=== PATIENT | female | born 1960 | race Caucasian/White ===

== ENCOUNTER 2023-04-11 12:39 | Outpatient (OUT) | payer MEDICARE, SELFPAY ==
--- NOTE | 2023-04-11 13:18 | MM_ITS ---
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 MG MAMM SCREEN 3D ISSA CAD, 02/10/2021. MG MAMM ISSA DIAG W CAD, 07/24/2019. MG MAMM ISSA SCRN W CAD DIG, 01/20/2016. INDICATIONS: Screening mammogram Z12.31 Calculator Name NCI Breast Cancer Risk Assessment Tool 5 Year Breast Cancer Risk 1.90% Lifetime Breast Cancer Risk 8.40% Personal Breast Cancer No Personal Ovarian Cancer No Treatments None Family Cancers Cousin-maternal with breast cancer at age 50. LOCATION: [facility] BREAST COMPOSITION: Heterogeneously dense,which may obscure small masses. FINDINGS: DIAGNOSTIC CATEGORY 2--BENIGN FINDING: RIGHT BREAST: No significant suspicious finding. Scattered benign-appearing calcifications are present. No significant change has occurred. LEFT BREAST: No significant suspicious finding. Scattered benign-appearing calcifications are present. No significant change has occurred. RECOMMENDATIONS: ROUTINE MAMMOGRAM AND CLINICAL EVALUATION IN 12 MONTHS. PLEASE NOTE: A NORMAL MAMMOGRAM DOES NOT EXCLUDE THE POSSIBILITY OF BREAST CANCER. A CLINICALLY SUSPICIOUS PALPABLE LUMP SHOULD BE BIOPSIED. Dictated by: Benton Treviño M.D. on 04/11/2023 at 14:49 Approved by: Benton Treviño M.D. on 04/11/2023 at 14:57
== END 2023-04-11 12:40 | disposition home or self-care (01) ==
PROVIDERS: PCP Nurse Practitioner; Visit Provider Nurse Practitioner
DX: Z12.31 Encounter for screening mammogram for malignant neoplasm of breast (principal); Z80.3 Family history of malignant neoplasm of breast
CPT/HCPCS: 77063; 77067

== ENCOUNTER 2023-05-27 15:38 | Outpatient (OUT) | payer MEDICARE, SELFPAY ==
[2023-05-27 16:21] LABS: Basophils Percent Auto 0.3 % (0.2-2.0); Eosinophils Absolute Auto 0.1 10^3/uL (0.0-0.7); Eosinophils Percent Auto 0.9 % (0.9-7.0); Hematocrit 45.5 % (36.0-48.0); Hemoglobin 15.3 g/dL (12.0-16.0); Immature Granulocytes Abs Auto 0.02 10^3/uL (0.00-0.03); Immature Granulocytes Pct Auto 0.3 % (0.0-0.5); Lymphocytes Absolute Auto 1.3 10^3/uL (1.2-3.8); Lymphocytes Percent Auto 22.5 % (20.5-60.0); Mean Corpuscular HGB Conc 33.6 g/dL (29.9-35.2); Mean Corpuscular Hemoglobin 31.9 pg (26.7-34.0); Mean Platelet Volume 10.6 fL (9.5-13.5); Monocytes Absolute Auto 0.6 10^3/uL (0.3-0.8); Monocytes Percent Auto 10.3 % (1.7-12.0); Neutrophils Absolute Auto 3.8 10^3/uL (1.4-6.5); Neutrophils Percent Auto 65.7 % (43.0-75.0); Platelet Count 256 10^3/uL (150-450); Red Blood Count 4.79 10^6/uL (4.20-5.40); White Blood Count 5.7 10^3/uL (4.0-11.0)
[2023-05-27 17:25] LABS: Free T4 0.79 ng/dL (0.76-1.46)
[2023-05-27 17:26] LABS: Alanine Aminotransferase 17 U/L (14-59); Albumin Level 3.8 g/dL (3.4-5.0); Alkaline Phosphatase 90 U/L (46-116); Anion Gap 10.4; Aspartate Amino Transferase 10 U/L (15-37); BUN Creatinine Ratio 17.2; Bilirubin Total 0.5 mg/dL (0.2-1.0); Calcium 8.9 mg/dL (8.5-10.1); Carbon Dioxide 30.7 mmol/L (21.0-32.0); Chloride 101 mmol/L (98-107); Chol HDL Ratio 3.5; Cholesterol 227 mg/dL (<=200); Estimated GFR (African America >60 (>=60); Estimated GFR (Non-African Ame >60 (>=60); Globulin 3.9 g/dL; Glucose 101 mg/dL (74-106); HDL Cholesterol 65 mg/dL (40-60); Potassium 4.1 mmol/L (3.5-5.1); Sodium 138 mmol/L (136-145); Thyroid Stimulating Hormone 3.082 uIU/mL (0.358-3.740); Total Protein 7.7 g/dL (6.4-8.2); Triglycerides 108 mg/dL (<=150); VLDL CHOLESTEROL 21.6 mg/dL
== END 2023-05-27 15:39 | disposition home or self-care (01) ==
PROVIDERS: PCP Nurse Practitioner; Visit Provider Nurse Practitioner
DX: Z79.899 Other long term (current) drug therapy (principal); G40.909 Epilepsy, unspecified, not intractable, without status epilepticus; E66.01 Morbid (severe) obesity due to excess calories; Z68.41 Body mass index [BMI] 40.0-44.9, adult; F41.9 Anxiety disorder, unspecified
CPT/HCPCS: 36415; 80053; 80061; 80164; 84439; 84443; 85025

== ENCOUNTER 2023-10-04 14:48 | Outpatient (OUT) | payer MEDICARE, SELFPAY ==
[2023-10-04 15:48] LABS: Valproic Acid 66.8 ug/mL (50.0-100.0)
== END 2023-10-04 14:49 | disposition home or self-care (01) ==
PROVIDERS: PCP Nurse Practitioner
DX: G40.909 Epilepsy, unspecified, not intractable, without status epilepticus (principal)
CPT/HCPCS: 36415; 80164

== ENCOUNTER 2023-11-15 17:50 | Emergency (ER) | payer MEDICARE, SELFPAY ==
[2023-11-15 18:04] VITALS: BP 176/93; PULSE 106; RESP 18; TEMP 36.4; O2SAT 96; BMI 45.3
--- NOTE | 2023-11-15 18:12 | CT_ITS ---
The [address] [address] Patient Name: CARINE WATSON MRN: [id number] date: 1960 Sex: F Assigned Patient Location: ER Current Patient Location: ER Accession/Order Number: [id number] Exam Date: 11/15/2023 18:27 Report Date: 11/15/2023 19:31 At the request of: CALI SANCHEZ Procedure: CT thoracic spine wo con Exam: Radiographs: XR ankle LT min 3V, XR knee LT 3V, XR hand RT min 3V Reason for exam: fall Comparison: CT scan dated 12/12/2020 CT/CT thoracic spine wo con IMPRESSION: Moderate left knee degenerative change. Left knee radiographs are otherwise unremarkable. Unremarkable left ankle radiographs. Mild degenerative changes scattered throughout the right hand. Old healed distal right radial metaphysis fracture. Right hand radiographs are otherwise unremarkable. EXAM: CT scan of the thoracic and lumbar spine with IV contrast. Dose reduction technique used: Automated exposure control and/or adjustment of the mA and/or kV according to patient size and/or use of iterative reconstruction technique. REASON FOR EXAM: fall COMPARISON: CT scan dated 02/19/2023 FINDINGS: THORACIC SPINE: No fractures, dislocations or acute malalignment of the thoracic spine. Mild thoracic spine degenerative changes without substantial spinal canal or neuroforaminal stenoses. Relatively preserved intervertebral disc heights. LUMBAR SPINE: No fractures, dislocations or acute malalignment of the lumbar spine. Lumbar spine degenerative changes without moderate or high-grade spinal canal or neural foraminal stenoses. Remainder unremarkable. IMPRESSION: No acute thoracic or lumbar spine abnormalities. Electronically authenticated by: PETER MEJIA Date: 11/15/2023 19:31
--- NOTE | 2023-11-15 18:12 | CT_ITS ---
The [address] [address] Patient Name: CARINE WATSON MRN: [id number] date: 1960 Sex: F Assigned Patient Location: ER Current Patient Location: ER Accession/Order Number: [id number] Exam Date: 11/15/2023 18:27 Report Date: 11/15/2023 19:22 At the request of: CALI SANCHEZ Procedure: CT head/brain wo con EXAM: CT cervical spine wo con, CT head/brain wo con, CT facial bones wo con HISTORY: fall COMPARISON: 02/26/2023 TECHNIQUE: Axial CT scans through the head cervical spine and facial bones were obtained without IV contrast administration. Dose reduction techniques were achieved by using: automated exposure control and/or adjustment of mA and /or kV according to patient size and/or use of iterative reconstruction technique. CT BRAIN FINDINGS: There is no evidence of acute intracranial hemorrhage or abnormal extra-axial fluid collection. No mass effect or midline shift is seen. There is no evidence of large acute territorial infarction. There is no hydrocephalus. There is mild diffuse atrophy with supratentorial decreased white matter attenuation, likely secondary to chronic microvascular ischemia. No definite acute fracture is identified. Soft tissues are unremarkable. CT/CT head/brain wo con IMPRESSION: No CT evidence of acute intracranial abnormality. CT FACIAL FINDINGS: No acute fracture or posttraumatic malalignment. The globes are intact bilaterally. There is no retrobulbar hematoma. There is right periorbital soft tissue swelling. The visualized paranasal sinuses show no air-fluid level. Mastoid air cells are clear. IMPRESSION: No acute fracture. Right periorbital soft tissue swelling. CT CERVICAL SPINE FINDINGS: No acute fracture or posttraumatic malalignment is seen. The dens and lateral masses of C1 are symmetric. There is straightening of the normal cervical lordotic curvature. Mild narrowing of disc space is seen at C5-6 level. There are multilevel mild marginal spurring, uncovertebral and facet arthrosis. There is moderate right and mild left neural foraminal narrowing at C5-6 level, secondary to uncovertebral hypertrophy. No significant spinal canal narrowing. There is a tiny bone island within the body of C7 vertebra. The prevertebral soft tissue space appears normal. IMPRESSION: No visualized acute cervical spine abnormality. Mild multilevel cervical spondylosis, most prominent at C5-6, as described. Straightening of cervical lordosis, may be related to positioning or muscle spasm. Electronically authenticated by: JOHNNA PINEDA Date: 11/15/2023 19:22
--- NOTE | 2023-11-15 18:12 | CT_ITS ---
The [address] [address] Patient Name: CARINE WATSON MRN: [id number] date: 1960 Sex: F Assigned Patient Location: ER Current Patient Location: ER Accession/Order Number: [id number] Exam Date: 11/15/2023 18:27 Report Date: 11/15/2023 19:31 At the request of: CALI SANCHEZ Procedure: CT lumbar spine wo con Exam: Radiographs: XR ankle LT min 3V, XR knee LT 3V, XR hand RT min 3V Reason for exam: fall Comparison: CT scan dated 12/12/2020 CT/CT lumbar spine wo con IMPRESSION: Moderate left knee degenerative change. Left knee radiographs are otherwise unremarkable. Unremarkable left ankle radiographs. Mild degenerative changes scattered throughout the right hand. Old healed distal right radial metaphysis fracture. Right hand radiographs are otherwise unremarkable. EXAM: CT scan of the thoracic and lumbar spine with IV contrast. Dose reduction technique used: Automated exposure control and/or adjustment of the mA and/or kV according to patient size and/or use of iterative reconstruction technique. REASON FOR EXAM: fall COMPARISON: CT scan dated 02/19/2023 FINDINGS: THORACIC SPINE: No fractures, dislocations or acute malalignment of the thoracic spine. Mild thoracic spine degenerative changes without substantial spinal canal or neuroforaminal stenoses. Relatively preserved intervertebral disc heights. LUMBAR SPINE: No fractures, dislocations or acute malalignment of the lumbar spine. Lumbar spine degenerative changes without moderate or high-grade spinal canal or neural foraminal stenoses. Remainder unremarkable. IMPRESSION: No acute thoracic or lumbar spine abnormalities. Electronically authenticated by: PETER MEJIA Date: 11/15/2023 19:31
--- NOTE | 2023-11-15 18:12 | CT_ITS ---
The [address] [address] Patient Name: CARINE WATSON MRN: [id number] date: 1960 Sex: F Assigned Patient Location: ER Current Patient Location: ER Accession/Order Number: [id number] Exam Date: 11/15/2023 18:27 Report Date: 11/15/2023 19:22 At the request of: CALI SANCHEZ Procedure: CT facial bones wo con EXAM: CT cervical spine wo con, CT head/brain wo con, CT facial bones wo con HISTORY: fall COMPARISON: 02/26/2023 TECHNIQUE: Axial CT scans through the head cervical spine and facial bones were obtained without IV contrast administration. Dose reduction techniques were achieved by using: automated exposure control and/or adjustment of mA and /or kV according to patient size and/or use of iterative reconstruction technique. CT BRAIN FINDINGS: There is no evidence of acute intracranial hemorrhage or abnormal extra-axial fluid collection. No mass effect or midline shift is seen. There is no evidence of large acute territorial infarction. There is no hydrocephalus. There is mild diffuse atrophy with supratentorial decreased white matter attenuation, likely secondary to chronic microvascular ischemia. No definite acute fracture is identified. Soft tissues are unremarkable. CT/CT facial bones wo con IMPRESSION: No CT evidence of acute intracranial abnormality. CT FACIAL FINDINGS: No acute fracture or posttraumatic malalignment. The globes are intact bilaterally. There is no retrobulbar hematoma. There is right periorbital soft tissue swelling. The visualized paranasal sinuses show no air-fluid level. Mastoid air cells are clear. IMPRESSION: No acute fracture. Right periorbital soft tissue swelling. CT CERVICAL SPINE FINDINGS: No acute fracture or posttraumatic malalignment is seen. The dens and lateral masses of C1 are symmetric. There is straightening of the normal cervical lordotic curvature. Mild narrowing of disc space is seen at C5-6 level. There are multilevel mild marginal spurring, uncovertebral and facet arthrosis. There is moderate right and mild left neural foraminal narrowing at C5-6 level, secondary to uncovertebral hypertrophy. No significant spinal canal narrowing. There is a tiny bone island within the body of C7 vertebra. The prevertebral soft tissue space appears normal. IMPRESSION: No visualized acute cervical spine abnormality. Mild multilevel cervical spondylosis, most prominent at C5-6, as described. Straightening of cervical lordosis, may be related to positioning or muscle spasm. Electronically authenticated by: JOHNNA PINEDA Date: 11/15/2023 19:22
--- NOTE | 2023-11-15 18:12 | CT_ITS ---
The [address] [address] Patient Name: CARINE WATSON MRN: [id number] date: 1960 Sex: F Assigned Patient Location: ER Current Patient Location: ER Accession/Order Number: [id number] Exam Date: 11/15/2023 18:27 Report Date: 11/15/2023 19:22 At the request of: CALI SANCHEZ Procedure: CT cervical spine wo con EXAM: CT cervical spine wo con, CT head/brain wo con, CT facial bones wo con HISTORY: fall COMPARISON: 02/26/2023 TECHNIQUE: Axial CT scans through the head cervical spine and facial bones were obtained without IV contrast administration. Dose reduction techniques were achieved by using: automated exposure control and/or adjustment of mA and /or kV according to patient size and/or use of iterative reconstruction technique. CT BRAIN FINDINGS: There is no evidence of acute intracranial hemorrhage or abnormal extra-axial fluid collection. No mass effect or midline shift is seen. There is no evidence of large acute territorial infarction. There is no hydrocephalus. There is mild diffuse atrophy with supratentorial decreased white matter attenuation, likely secondary to chronic microvascular ischemia. No definite acute fracture is identified. Soft tissues are unremarkable. CT/CT cervical spine wo con IMPRESSION: No CT evidence of acute intracranial abnormality. CT FACIAL FINDINGS: No acute fracture or posttraumatic malalignment. The globes are intact bilaterally. There is no retrobulbar hematoma. There is right periorbital soft tissue swelling. The visualized paranasal sinuses show no air-fluid level. Mastoid air cells are clear. IMPRESSION: No acute fracture. Right periorbital soft tissue swelling. CT CERVICAL SPINE FINDINGS: No acute fracture or posttraumatic malalignment is seen. The dens and lateral masses of C1 are symmetric. There is straightening of the normal cervical lordotic curvature. Mild narrowing of disc space is seen at C5-6 level. There are multilevel mild marginal spurring, uncovertebral and facet arthrosis. There is moderate right and mild left neural foraminal narrowing at C5-6 level, secondary to uncovertebral hypertrophy. No significant spinal canal narrowing. There is a tiny bone island within the body of C7 vertebra. The prevertebral soft tissue space appears normal. IMPRESSION: No visualized acute cervical spine abnormality. Mild multilevel cervical spondylosis, most prominent at C5-6, as described. Straightening of cervical lordosis, may be related to positioning or muscle spasm. Electronically authenticated by: JOHNNA PINEDA Date: 11/15/2023 19:22
--- NOTE | 2023-11-15 18:15 | ED_ITS ---
HPI - Fall General Chief Complaint: Fall Stated Complaint: Fall Time Seen by Provider: 11/15/23 17:59 Source: patient and family Mode of arrival: Wheelchair History of Present Illness HPI Narrative: Patient is a 63-year-old female who presents to the emergency department for the evaluation of injuries after a fall just prior to arrival. Patient has a history of MS. She ambulates with a walker. She states her legs frequently give out on her. She had no dizziness, lightheadedness, chest pain or shortness of breath prior to falling. She states her walker missed a step and she fell forward onto her knees, she did strike her face on the ground as well. She does not believe she had a loss of consciousness. She denies any pain to the neck but has pain in the upper back and lower back as well as in the face, left knee and ankle as well as the right hand. She does not take blood thinners. She sustained a superficial laceration across the nasal bridge from her glasses when she struck the ground. She believes she needs a tetanus update. She denies visual changes, nausea, vomiting. Related Data Home Medications Medication Instructions Recorded Confirmed divalproex 250 mg tablet,delayed 250 mg PO QID 11/15/23 11/15/23 release duloxetine 20 mg capsule,delayed 20 mg PO BID 11/15/23 11/15/23 release duloxetine 60 mg capsule,delayed 60 mg PO DAILY 11/15/23 11/15/23 release meloxicam 7.5 mg tablet 7.5 mg PO DAILY 11/15/23 11/15/23 oxcarbazepine 300 mg tablet 450 mg PO BEDTIME 11/15/23 11/15/23 oxybutynin chloride 15 mg 15 mg PO DAILY 11/15/23 11/15/23 tablet,extended release 24 hr pregabalin 150 mg capsule 150 mg PO BID 11/15/23 11/15/23 Previous Rx's Medication Instructions Recorded hydrocodone 5 mg-acetaminophen 325 1 tab PO Q6H PRN pain 3 days #12 11/15/23 mg tablet tabs ondansetron 4 mg disintegrating 4 mg PO Q6H PRN nausea and 11/15/23 tablet vomiting #12 tabs Allergies Allergy/AdvReac Type Severity Reaction Status Date / Time latex AdvReac Mild Verified 11/15/23 18:04 Penicillins AdvReac Mild Verified 11/15/23 18:03 rofecoxib [From Vioxx] AdvReac Mild Verified 11/15/23 18:03 Review of Systems ROS Constitutional Denies: fever or chills Eyes Denies: change in vision or blurry vision Ears, nose, mouth, and throat Denies: throat pain or nasal congestion Cardiovascular Denies: chest pain Respiratory Denies: shortness of breath or cough Gastrointestinal Denies: nausea or vomiting Genitourinary Denies: painful urination Musculoskeletal Reports: back pain, extremity pain and extremity swelling; Denies: neck pain Integumentary/Breast Denies: rash Neurological Reports: headache and weakness in extremities; Denies: numbness in extremities, dizziness or vertigo Endocrine Denies: excessive urination Hematologic/Lymphatic Denies: easy bruising or easy bleeding PFSH PFSH Social History Smoking status: Never smoker Exam Narrative Exam Narrative: Gen.: Awake, alert, in no distress Head: Normocephalic, Abrasions and superficial laceration over the nasal bridge with diffuse swelling, ecchymosis of the right orbit ENT: Moist mucous membranes; Abrasion and superficial laceration over the nasal bridge and right maxilla. No dental injury or septal hematoma noted. No epistaxis. Cervical spine nontender Respiratory: No respiratory distress, lungs clear bilaterally Cardio: Regular rate and rhythm Back: Tenderness of the mid thoracic spine and diffusely over the lumbar spine with no obvious deformity or step-off. No ecchymosis or abrasions of the back. Gastrointestinal: Abdomen is soft, nondistended and nontender to palpation; Pe lvis is stable and hips nontender Extremities: Tenderness of the left anterior knee and diffusely of the left ankle with no appreciable swelling, ecchymosis or obvious deformity. Mild tenderness of the fourth and fifth fingers of the right hand with no appreciable swelling or obvious deformity. Psych: Normal mood and affect Neuro: No focal neuro deficit Skin: Warm, dry Constitutional Vital Signs, click to edit/add: Last Vital Signs Temp 97.6 F 11/15/23 18:04 Pulse 106 H 11/15/23 18:04 Resp 18 11/15/23 18:04 BP 176/93 H 11/15/23 18:04 Pulse Ox 96 11/15/23 18:04 O2 Del Method Room Air 11/15/23 18:04 Course Vital Signs Vital signs: Vital Signs Temperature 97.6 F 11/15/23 18:04 Pulse Rate 106 H 11/15/23 18:04 Respiratory Rate 18 11/15/23 18:04 Blood Pressure 176/93 H 11/15/23 18:04 Pulse Oximetry 96 11/15/23 18:04 Oxygen Delivery Method Room Air 11/15/23 18:04 Temperature 97.6 F 11/15/23 18:04 Pulse Rate 106 H 11/15/23 18:04 Respiratory Rate 18 11/15/23 18:04 Blood Pressure 176/93 H 11/15/23 18:04 Pulse Oximetry 96 11/15/23 18:04 Oxygen Delivery Method Room Air 11/15/23 18:04 MDM - Fall MDM Narrative Medical decision making narrative: No indication for suture repair at this time. CTs of the head, facial bones, cervical spine, thoracic spine, lumbar spine as well as x-rays of the right hand, left knee and left ankle were reviewed by the radiologist with no evidence of acute process. The patient had an updated tetanus in the ER with bacitracin applied to cleansed abrasion to the face. She is strongly encouraged to keep ice to the Right orbit as it is swollen and bruised at this time. She is sent home with a short course of analgesics to follow-up with PCP and return to the ER if symptoms change or worsen. She has a walker at home to help with a mbulation, mother at bedside States they have a wheelchair and feel comfortable going home. Patient given a short course of analgesics as needed and nausea medication as needed. Medical Records Attestation: I reviewed the patient's medical records. Imaging Data CT scan - head: Attestation: I have reviewed the pertinent imaging results. Radiologist's impression: ITS Impressions Ankle X-Ray 11/15/23 18:12 IMPRESSION: Moderate left knee degenerative change. Left knee radiographs are otherwise unremarkable. Unremarkable left ankle radiographs. Mild degenerative changes scattered throughout the right hand. Old healed distal right radial metaphysis fracture. Right hand radiographs are otherwise unremarkable. EXAM: CT scan of the thoracic and lumbar spine with IV contrast. Dose reduction technique used: Automated exposure control and/or adjustment of the mA and/or kV according to patient size and/or use of iterative reconstruction technique. REASON FOR EXAM: fall COMPARISON: CT scan dated 02/19/2023 FINDINGS: THORACIC SPINE: No fractures, dislocations or acute malalignment of the thoracic spine. Mild thoracic spine degenerative changes without substantial spinal canal or neuroforaminal stenoses. Relatively preserved intervertebral disc heights. LUMBAR SPINE: No fractures, dislocations or acute malalignment of the lumbar spine. Lumbar spine degenerative changes without moderate or high-grade spinal canal or neural foraminal stenoses. Remainder unremarkable. IMPRESSION: No acute thoracic or lumbar spine abnormalities. Electronically authenticated by: PETER MEJIA Date: 11/15/2023 19:[address] 11/15/23 18:12 IMPRESSION: No CT evidence of acute intracranial abnormality. CT FACIAL FINDINGS: No acute fracture or posttraumatic malalignment. The globes are intact bilaterally. There is no retrobulbar hematoma. There is right periorbital soft tissue swelling. The visualized paranasal sinuses show no air-fluid level. Mastoid air cells are clear. IMPRESSION: No acute fracture. Right periorbital soft tissue swelling. CT CERVICAL SPINE FINDINGS: No acute fracture or posttraumatic malalignment is seen. The dens and lateral masses of C1 are symmetric. There is straightening of the normal cervical lordotic curvature. Mild narrowing of disc space is seen at C5-6 level. There are multilevel mild marginal spurring, uncovertebral and facet arthrosis. There is moderate right and mild left neural foraminal narrowing at C5-6 level, secondary to uncovertebral hypertrophy. No significant spinal canal narrowing. There is a tiny bone island within the body of C7 vertebra. The prevertebral soft tissue space appears normal. IMPRESSION: No visualized acute cervical spine abnormality. Mild multilevel cervical spondylosis, most prominent at C5-6, as described. Straightening of cervical lordosis, may be related to positioning or muscle spasm. Electronically authenticated by: JOHNNA UNLU Date: 11/15/2023 19:[address] 11/15/23 18:12 IMPRESSION: No CT evidence of acute intracranial abnormality. CT FACIAL FINDINGS: No acute fracture or posttraumatic malalignment. The globes are intact bilaterally. There is no retrobulbar hematoma. There is right periorbital soft tissue swelling. The visualized paranasal sinuses show no air-fluid level. Mastoid air cells are clear. IMPRESSION: No acute fracture. Right periorbital soft tissue swelling. CT CERVICAL SPINE FINDINGS: No acute fracture or posttraumatic malalignment is seen. The dens and lateral masses of C1 are symmetric. There is straightening of the normal cervical lordotic curvature. Mild narrowing of disc space is seen at C5-6 level. There are multilevel mild marginal spurring, uncovertebral and facet arthrosis. There is moderate right and mild left neural foraminal narrowing at C5-6 level, secondary to uncovertebral hypertrophy. No significant spinal canal narrowing. There is a tiny bone island within the body of C7 vertebra. The prevertebral soft tissue space appears normal. IMPRESSION: No visualized acute cervical spine abnormality. Mild multilevel cervical spondylosis, most prominent at C5-6, as described. Straightening of cervical lordosis, may be related to positioning or muscle spasm. Electronically authenticated by: JOHNNA PINEDA Date: 11/15/2023 19:22 Hand X-Ray 11/15/23 18:12 IMPRESSION: Moderate left knee degenerative change. Left knee radiographs are otherwise unremarkable. Unremarkable left ankle radiographs. Mild degenerative changes scattered throughout the right hand. Old healed distal right radial metaphysis fracture. Right hand radiographs are otherwise unremarkable. EXAM: CT scan of the thoracic and lumbar spine with IV contrast. Dose reduction technique used: Automated exposure control and/or adjustment of the mA and/or kV according to patient size and/or use of iterative reconstruction technique. REASON FOR EXAM: fall COMPARISON: CT scan dated 02/19/2023 FINDINGS: THORACIC SPINE: No fractures, dislocations or acute malalignment of the thoracic spine. Mild thoracic spine degenerative changes without substantial spinal canal or neuroforaminal stenoses. Relatively preserved intervertebral disc heights. LUMBAR SPINE: No fractures, dislocations or acute malalignment of the lumbar spine. Lumbar spine degenerative changes without moderate or high-grade spinal canal or neural foraminal stenoses. Remainder unremarkable. IMPRESSION: No acute thoracic or lumbar spine abnormalities. Electronically authenticated by: PETER MEJIA Date: 11/15/2023 19:[address] 11/15/23 18:12 IMPRESSION: No CT evidence of acute intracranial abnormality. CT FACIAL FINDINGS: No acute fracture or posttraumatic malalignment. The globes are intact bilaterally. There is no retrobulbar hematoma. There is right periorbital soft tissue swelling. The visualized paranasal sinuses show no air-fluid level. Mastoid air cells are clear. IMPRESSION: No acute fracture. Right periorbital soft tissue swelling. CT CERVICAL SPINE FINDINGS: No acute fracture or posttraumatic malalignment is seen. The dens and lateral masses of C1 are symmetric. There is straightening of the normal cervical lordotic curvature. Mild narrowing of disc space is seen at C5-6 level. There are multilevel mild marginal spurring, uncovertebral and facet arthrosis. There is moderate right and mild left neural foraminal narrowing at C5-6 level, secondary to uncovertebral hypertrophy. No significant spinal canal narrowing. There is a tiny bone island within the body of C7 vertebra. The prevertebral soft tissue space appears normal. IMPRESSION: No visualized acute cervical spine abnormality. Mild multilevel cervical spondylosis, most prominent at C5-6, as described. Straightening of cervical lordosis, may be related to positioning or muscle spasm. Electronically authenticated by: JOHNNA PINEDA Date: 11/15/2023 19:22 Knee X-Ray 11/15/23 18:12 IMPRESSION: Moderate left knee degenerative change. Left knee radiographs are otherwise unremarkable. Unremarkable left ankle radiographs. Mild degenerative changes scattered throughout the right hand. Old healed distal right radial metaphysis fracture. Right hand radiographs are otherwise unremarkable. EXAM: CT scan of the thoracic and lumbar spine with IV contrast. Dose reduction technique used: Automated exposure control and/or adjustment of the mA and/or kV according to patient size and/or use of iterative reconstruction technique. REASON FOR EXAM: fall COMPARISON: CT scan dated 02/19/2023 FINDINGS: THORACIC SPINE: No fractures, dislocations or acute malalignment of the thoracic spine. Mild thoracic spine degenerative changes without substantial spinal canal or neuroforaminal stenoses. Relatively preserved intervertebral disc heights. LUMBAR SPINE: No fractures, dislocations or acute malalignment of the lumbar spine. Lumbar spine degenerative changes without moderate or high-grade spinal canal or neural foraminal stenoses. Remainder unremarkable. IMPRESSION: No acute thoracic or lumbar spine abnormalities. Electronically authenticated by: PETER MEJIA Date: 11/15/2023 19:[address] 11/15/23 18:12 IMPRESSION: Moderate left knee degenerative change. Left knee radiographs are otherwise unremarkable. Unremarkable left ankle radiographs. Mild degenerative changes scattered throughout the right hand. Old healed distal right radial metaphysis fracture. Right hand radiographs are otherwise unremarkable. EXAM: CT scan of the thoracic and lumbar spine with IV contrast. Dose reduction technique used: Automated exposure control and/or adjustment of the mA and/or kV according to patient size and/or use of iterative reconstruction technique. REASON FOR EXAM: fall COMPARISON: CT scan dated 02/19/2023 FINDINGS: THORACIC SPINE: No fractures, dislocations or acute malalignment of the thoracic spine. Mild thoracic spine degenerative changes without substantial spinal canal or neuroforaminal stenoses. Relatively preserved intervertebral disc heights. LUMBAR SPINE: No fractures, dislocations or acute malalignment of the lumbar spine. Lumbar spine degenerative changes without moderate or high-grade spinal canal or neural foraminal stenoses. Remainder unremarkable. IMPRESSION: No acute thoracic or lumbar spine abnormalities. Electronically authenticated by: PETER MEJIA Date: 11/15/2023 19:[address] 11/15/23 18:12 IMPRESSION: Moderate left knee degenerative change. Left knee radiographs are otherwise unremarkable. Unremarkable left ankle radiographs. Mild degenerative changes scattered throughout the right hand. Old healed distal right radial metaphysis fracture. Right hand radiographs are otherwise unremarkable. EXAM: CT scan of the thoracic and lumbar spine with IV contrast. Dose reduction technique used: Automated exposure control and/or adjustment of the mA and/or kV according to patient size and/or use of iterative reconstruction technique. REASON FOR EXAM: fall COMPARISON: CT scan dated 02/19/2023 FINDINGS: THORACIC SPINE: No fractures, dislocations or acute malalignment of the thoracic spine. Mild thoracic spine degenerative changes without substantial spinal canal or neuroforaminal stenoses. Relatively preserved intervertebral disc heights. LUMBAR SPINE: No fractures, dislocations or acute malalignment of the lumbar spine. Lumbar spine degenerative changes without moderate or high-grade spinal canal or neural foraminal stenoses. Remainder unremarkable. IMPRESSION: No acute thoracic or lumbar spine abnormalities. Electronically authenticated by: PETER MEJIA Date: 11/15/2023 19:31 Discharge Plan Discharge Chief Complaint: Fall Clinical Impression: Back pain, Closed head injury, Contusion of face, Abrasion of face, Fall Patient Disposition: Home, Self-Care Time of Disposition Decision: 19:40 Condition: Good Prescriptions / Home Meds: New hydrocodone-acetaminophen 5-325 mg tablet 1 tab PO Q6H PRN (Reason: pain) 3 Days Qty: 12 0RF Rx Instructions: DX: S00.83XA ondansetron 4 mg tablet,disintegrating 4 mg PO Q6H PRN (Reason: nausea and vomiting) Qty: 12 0RF No Action divalproex 250 mg tablet,delayed release (DR/EC) 250 mg PO QID duloxetine 20 mg capsule,delayed release(DR/EC) 20 mg PO BID duloxetine 60 mg capsule,delayed release(DR/EC) 60 mg PO DAILY meloxicam 7.5 mg tablet 7.5 mg PO DAILY oxcarbazepine 300 mg tablet 450 mg PO BEDTIME oxybutynin chloride 15 mg tablet extended release 24hr 15 mg PO DAILY pregabalin 150 mg capsule 150 mg PO BID Instructions: Head Injury (ED), Abrasion (ED), Back Pain (ED) Stand Alone Forms: Portal Instructions Referrals: INDER ROBERSON [Primary Care Provider] - 1 week
[2023-11-15] MEDS: HYDROCODONE/ACET 5-325 MG TABLET 1 TAB PO (18:58)
[2023-11-15] MEDS: BACITRACIN 0.9 GM PACKET 1 PACKET TOPICAL (18:58)
[2023-11-15] MEDS: ADACEL DIPH,PERTUSS(ACELL),TET VAC/PF 0.5 ML ADULT SYRINGE IM (18:59)
== END 2023-11-15 20:13 | disposition home or self-care (01) ==
PROVIDERS: Emergency Provider Emergency Medicine; PCP Nurse Practitioner
DX: M54.9 Dorsalgia, unspecified (principal); S09.8XXA Other specified injuries of head, initial encounter; S00.83XA Contusion of other part of head, initial encounter; S00.81XA Abrasion of other part of head, initial encounter; G35 Multiple sclerosis; Z23 Encounter for immunization; W19.XXXA Unspecified fall, initial encounter; Z79.899 Other long term (current) drug therapy
CPT/HCPCS: 70450; 70486; 72125; 72128; 72131; 73130; 73562; 73610; 90471; 90715; 99284

== ENCOUNTER 2024-05-02 07:28 | Emergency (ER) | payer MEDICARE, SELFPAY ==
[2024-05-02 07:32] VITALS: BP 107/90; PULSE 103; TEMP 36.6; O2SAT 97; BMI 45.3
--- NOTE | 2024-05-02 07:40 | CT_ITS ---
The [address] [address] Patient Name: CARINE WATSON MRN: [id number] date: 1960 Sex: F Assigned Patient Location: ER Current Patient Location: ER Accession/Order Number: [id number] Exam Date: 05/02/2024 07:55 Report Date: 05/02/2024 08:41 At the request of: SHREYA KEVIN Procedure: CT pelvis wo con EXAMINATION: CT pelvis wo con HISTORY: fall COMPARISON: No relevant comparison available. TECHNIQUE: Multi-planar CT images were created without IV contrast. Dose reduction techniques were achieved by using automated exposure control and/or adjustment of mA and/or kV according to patient size and/or use of iterative reconstruction technique. FINDINGS: BONES: No acute fracture or dislocation. Bilateral femoral head sclerosis consistent with avascular necrosis. Degenerative changes of the spine SOFT TISSUES: Negative. No visible soft tissue swelling. EFFUSION: None visible. OTHER: Negative. CT/CT pelvis wo con IMPRESSION: No acute traumatic abnormality Electronically authenticated by: RUSSEL STREETER Date: 05/02/2024 08:41
--- NOTE | 2024-05-02 07:40 | CT_ITS ---
The [place] [id number] Patient Name: CARINE WATSON MRN: [id number] date: 1960 Sex: F Assigned Patient Location: ER Current Patient Location: ER Accession/Order Number: [id number] Exam Date: 05/02/2024 07:55 Report Date: 05/02/2024 08:37 At the request of: SHREYA KEVIN Procedure: CT lumbar spine wo con PROCEDURE: CT lumbar spine wo con COMPARISON: 11/15/2023 HISTORY: fall TECHNIQUE: Axial, Coronal, and Sagittal CT images obtained without IV contrast. Dose reduction techniques were achieved by using automated exposure control and/or adjustment of mA and/or kV according to patient size and/or use of iterative reconstruction technique. FINDINGS: PARASPINAL AREA: Normal with no visible mass. DISCS: Moderate multilevel disc space narrowing most significant at L2-L3 and L5-S1 with vacuum disks BONES: Normal alignment with no acute fracture. 3 mm retrolisthesis of L5 in relation S1. Mild diffuse degenerative spondylosis and facet osteoarthropathy OTHER: Mild narrowing of the right L5-S1 neural foramen CT/CT lumbar spine wo con IMPRESSION: Degenerative changes No acute traumatic abnormality Electronically authenticated by: RUSSEL STREETER Date: 05/02/2024 08:37
--- NOTE | 2024-05-02 07:56 | ED_ITS ---
HPI HPI - General Adult General Chief complaint: Fall Stated complaint: LEG PAIN Time Seen by Provider: 05/02/24 07:40 History of Present Illness HPI narrative: 63-year-old female with history of MS as well as a history of a hemorrhagic stroke that ended up with having left-sided weakness, she is coming to the ER today after she woke up at 4 AM to go to the bathroom and she ended up falling after her left knee gave out, she mentioned that she just had pool physical therapy yesterday The patient denies any loss of consciousness she did mention that she fell backward and hit the back of her head but there is no loss of consciousness she is awake the whole time and apparently she crawled to the side of the wall but she could not stand up. The patient lives with her mother and her mother when she saw her she could not help her stand up and she called the EMS for lift The patient have no headache is complaining only of knee pain that is chronic and usually she uses pain medication including Percocet for that The patient is complaining of some lower back pain no weakness that is more than her baseline And she mentioned that she had no complaint yesterday Related Data Home Medications ?Medication ?Instructions ?Recorded ?Confirmed divalproex 250 mg tablet,delayed 250 mg PO QID 11/15/23 11/15/23 release duloxetine 20 mg capsule,delayed 20 mg PO BID 11/15/23 11/15/23 release duloxetine 60 mg capsule,delayed 60 mg PO DAILY 11/15/23 11/15/23 release meloxicam 7.5 mg tablet 7.5 mg PO DAILY 11/15/23 11/15/23 oxcarbazepine 300 mg tablet 450 mg PO BEDTIME 11/15/23 11/15/23 oxybutynin chloride 15 mg 15 mg PO DAILY 11/15/23 11/15/23 tablet,extended release 24 hr pregabalin 150 mg capsule 150 mg PO BID 11/15/23 11/15/23 Previous Rx's ?Medication ?Instructions ?Recorded hydrocodone 5 mg-acetaminophen 325 1 tab PO Q6H PRN pain 3 days #12 11/15/23 mg tablet tabs ondansetron 4 mg disintegrating 4 mg PO Q6H PRN nausea and 11/15/23 tablet vomiting #12 tabs Allergies Allergy/AdvReac Type Severity Reaction Status Date / Time latex AdvReac Mild Verified 11/15/23 18:04 Penicillins AdvReac Mild Verified 11/15/23 18:03 rofecoxib [From Vioxx] AdvReac Mild Verified 11/15/23 18:03 Opioid HPI Opioid Management Most Recent Opioid Data: Last Pain Scale 4 05/02/24 07:51 Last ED Pain Assessment 05/02/24 07:51 Review of Systems ROS Status of ROS 10 or more systems reviewed and unremark able except as noted in history and below PFSH PFSH Social History Smoking status: Never smoker Exam Narrative Exam Narrative: Nurses notes and vital signs reviewed and patient is not hypoxic. General: Well-appearing and in no apparent distress. Skin: Warm, dry, no pallor noted. No rash. Head: Normocephalic, atraumatic. Neck: Supple, non-tender. Eye: Pupils are equal, round and EOMI. No scleral icterus. Ears, Nose, Mouth, and Throat: TM are clear, no nasal mucosal hypertrophy. Oral mucosa is moist, no posterior oropharynx erythema, uvula is mid-line Cardiovascular: Regular Rate and Rhythm without murmur, gallop or rub. Respiratory: No accessory muscle use or respiratory distress. Lungs are clear to auscultation, no wheezing, rales or rhonchi Chest Wall: no tenderness Back: There is lower lumbar intervertebral line tenderness as well as sacral area tenderness, no ecchymosis Musculoskeletal: normal ROM, no calf or popliteal tenderness, no lower extremity edema/swelling GI: Abdomen is soft, non-distended. Normal bowel sounds. No masses appreciated. No tenderness to palpation. No rebound, guarding, or rigidity noted. Neurological: A&O x4. No cranial nerve dysfunction observed. No truncal ataxia. Moves all extremities. Sensation intact. Psychiatric: Cooperative and interactive. Normal mood and affect. Constitutional Vital Signs, click to edit/add: Last Vital Signs Temp 97.8 F 05/02/24 07:32 Pulse 103 H 05/02/24 07:32 Resp 18 05/02/24 07:32 BP 107/90 05/02/24 07:32 Pulse Ox 97 05/02/24 07:32 O2 Del Method Room Air 05/02/24 07:32 Course Vital Signs Vital signs: Vital Signs Temperature 97.8 F 05/02/24 07:32 Pulse Rate 103 H 05/02/24 07:32 Respiratory Rate 18 05/02/24 07:32 Blood Pressure 107/90 05/02/24 07:32 Pulse Oximetry 97 05/02/24 07:32 Oxygen Delivery Method Room Air 05/02/24 07:32 Temperature 97.8 F 05/02/24 07:32 Pulse Rate 103 H 05/02/24 07:32 Respiratory Rate 18 05/02/24 07:32 Blood Pressure 107/90 05/02/24 07:32 Pulse Oximetry 97 05/02/24 07:32 Oxygen Delivery Method Room Air 05/02/24 07:32 Medical Decision Making MDM Narrative Medical decision making narrative: CT of the pelvis as well as CT of the lumbar spine showed no acute pathology The patient was feeling better after treated in the ER with Toradol and Percocet The patient ready take Percocet at home as a baseline It was noted that the patient was able to ambulate after treatment in the ER with a walker as a baseline should he have electric wheelchair as well at home. It was noted also that the patient started having pain in her knee more after the physical therapy that she had yesterday I did explain to her that right now she need to through her therapist that we need to decrease the intensity of the physical therapy as she is having pain and so avoid any straining of the muscles Patient understands The patient also had a head injury with no loss of consciousness and no with intake of anticoagulation and right now the patient presentation does not require any further imaging but she was instructed about monitoring her symptoms at home The patient is to follow up with primary care physician in next 2-3 days or to return to the emergency department should any of the signs or symptoms worsen or new symptoms develop. The patient agrees with the following Diagnosis and Treatment plan and the patient will be discharged home. Discharge Plan Discharge Stand Alone Forms: Portal Instructions Chief Complaint: Fall Clinical Impression: Fall Qualifiers: Encounter type: initial encounter Qualified Code(s): W19.XXXA - Unspecified fall, initial encounter Back pain Qualifiers: Back pain location: low back pain Chronicity: acute Back pain laterality: midline Sciatica presence: without sciatica Qualified Code(s): M54.50 - Low back pain, unspecified Contusion of sacral region Qualifiers: Encounter type: initial encounter Qualified Code(s): S30.0XXA - Contusion of lower back and pelvis, initial encounter Patient Disposition: Home, Self-Care Time of Disposition Decision: 09:04 Condition: Good Prescriptions / Home Meds: No Action divalproex 250 mg tablet,delayed release (DR/EC) 250 mg PO QID duloxetine 20 mg capsule,delayed release(DR/EC) 20 mg PO BID duloxetine 60 mg capsule,delayed release(DR/EC) 60 mg PO DAILY meloxicam 7.5 mg tablet 7.5 mg PO DAILY oxcarbazepine 300 mg tablet 450 mg PO BEDTIME oxybutynin chloride 15 mg tablet extended release 24hr 15 mg PO DAILY pregabalin 150 mg capsule 150 mg PO BID hydrocodone-acetaminophen 5-325 mg tablet 1 tab PO Q6H PRN (Reason: pain) 3 Days Qty: 12 0RF Rx Instructions: DX: S00.83XA ondansetron 4 mg tablet,disintegrating 4 mg PO Q6H PRN (Reason: nausea and vomiting) Qty: 12 0RF Print Language: Malian Instructions: Head Injury (DC), Fall Prevention (ED) Referrals: INDER ROBERSON [Primary Care Provider] - 1 week
[2024-05-02] MEDS: OXYCODONE HCL/ACETAMINOPHEN 5MG/325MG 1 TAB PO (08:11)
[2024-05-02] MEDS: KETOROLAC TROMETHAMINE 60 MG/2 ML VIAL IM (08:11)
[2024-05-02 09:14] VITALS: BP 112/74; PULSE 74; O2SAT 94
== END 2024-05-02 09:15 | disposition home or self-care (01) ==
PROVIDERS: Emergency Provider Emergency Medicine; PCP Nurse Practitioner
DX: M54.50 Low back pain, unspecified (principal); S30.0XXA Contusion of lower back and pelvis, initial encounter; W19.XXXA Unspecified fall, initial encounter; G35 Multiple sclerosis; I69.354 Hemiplegia and hemiparesis following cerebral infarction affecting left non-dominant side
CPT/HCPCS: 72131; 72192; 96372; 99284; J1885

== ENCOUNTER 2024-07-02 17:00 | Emergency (ER) | payer MEDICARE, SELFPAY ==
[2024-07-02 17:04] VITALS: BP 116/76; PULSE 93; TEMP 36.8; O2SAT 96; BMI 41.5
--- NOTE | 2024-07-02 17:14 | ED_ITS ---
HPI HPI - Extremity Injury (Lower) General Chief Complaint: Extremity Injury, Lower Stated Complaint: FALL Time Seen by Provider: 07/02/24 17:10 History of Present Illness HPI Narrative: 64 year old female presents to the ED for pain to her ankles, knees, and neck s/p fall today. States she has history of MS. Reports being wheelchair-bound. She did stand up today from the wheelchair and fell forward. Denies hitting her head and LOC. Denies pain to her head, chest, abdomen, back, hips. Related Data Home Medications ?Medication ?Instructions ?Recorded ?Confirmed divalproex 250 mg tablet,delayed 250 mg PO QID 11/15/23 11/15/23 release duloxetine 20 mg capsule,delayed 20 mg PO BID 11/15/23 11/15/23 release duloxetine 60 mg capsule,delayed 60 mg PO DAILY 11/15/23 11/15/23 release meloxicam 7.5 mg tablet 7.5 mg PO DAILY 11/15/23 11/15/23 oxcarbazepine 300 mg tablet 450 mg PO BEDTIME 11/15/23 11/15/23 oxybutynin chloride 15 mg 15 mg PO DAILY 11/15/23 11/15/23 tablet,extended release 24 hr pregabalin 150 mg capsule 150 mg PO BID 11/15/23 11/15/23 Previous Rx's ?Medication ?Instructions ?Recorded hydrocodone 5 mg-acetaminophen 325 1 tab PO Q6H PRN pain 3 days #12 11/15/23 mg tablet tabs ondansetron 4 mg disintegrating 4 mg PO Q6H PRN nausea and 11/15/23 tablet vomiting #12 tabs Allergies Allergy/AdvReac Type Severity Reaction Status Date / Time latex AdvReac Mild Verified 11/15/23 18:04 Penicillins AdvReac Mild Verified 11/15/23 18:03 rofecoxib [From Vioxx] AdvReac Mild Verified 11/15/23 18:03 Opioid HPI Opioid Management Most Recent Pain and Opioid Data: Last Pain Scale 4 05/02/24 07:51 Review of Systems ROS Constitutional Denies: fever or chills Ears, nose, mouth, and throat Reports: neck pain; Denies: throat pain Cardiovascular Denies: chest pain Respiratory Denies: shortness of breath Gastrointestinal Denies: abdominal pain, nausea or vomiting Musculoskeletal Reports: neck pain and extremity pain; Denies: back pain Integumentary/Breast Denies: rash or new lesion Neurological Denies: headache or dizziness PFSH [facility] Social History Smoking status: Never smoker Little interest or pleasure in doing things: not at all Feeling down, depressed, or hopeless: not at all Exam Constitutional Vital Signs, click to edit/add: Last Vital Signs Temp 98.3 F 07/02/24 17:04 Pulse 93 H 07/02/24 17:04 Resp 18 07/02/24 17:04 BP 116/76 07/02/24 17:04 Pulse Ox 96 07/02/24 17:04 O2 Del Method Room Air 07/02/24 17:04 Eye Common normals: PERRL, EOMs intact bilaterally, conjunctivae normal and no scleral icterus Neck & C-Spine Common normals: supple Cervical spine: paracervical muscle tenderness; no cervical spine tenderness Chest Common normals: palpation of chest normal Chest: symmetrical chest wall rise Respiratory Common normals: normal respiratory effort Effort & inspection: able to speak in complete sentences Cardio Common normals: regular rhythm Peripheral pulses: radial pulses present, posterior tibial pulses present and dorsalis pedis pulses present Back & Pelvis Thoracic spine/upper back: normal to inspection; no thoracic spinal tenderness, no paraspinal muscle tenderness and no paraspinal muscle spasm Lumbar spine/lower back: normal to inspection; no lumbar spinal tenderness, no paraspinal muscle tenderness and no paraspinal muscle spasm Extremity Other: Tenderness to bilateral knees and ankles with most of tenderness/pain to the right lateral ankle area. Pedal pulses palpable. No significant swelling noted. No obvious deformity noted. Neuro Common normals: oriented x3 and CN's II-XII intact bilaterally Sensorium/orientation: awake and alert Speech: speech normal Course Vital Signs Vital signs: Vital Signs Temperature 98.3 F 07/02/24 17:04 Pulse Rate 93 H 07/02/24 17:04 Respiratory Rate 18 07/02/24 17:04 Blood Pressure 116/76 07/02/24 17:04 Pulse Oximetry 96 07/02/24 17:04 Oxygen Delivery Method Room Air 07/02/24 17:04 Temperature 98.3 F 07/02/24 17:04 Pulse Rate 93 H 07/02/24 17:04 Respiratory Rate 18 07/02/24 17:04 Blood Pressure 116/76 07/02/24 17:04 Pulse Oximetry 96 07/02/24 17:04 Oxygen Delivery Method Room Air 07/02/24 17:04 MDM - Extremity Injury (Lower) MDM Narrative Medical decision making narrative: X-ray showed a nondisplaced fracture of the right distal fibular metadiaphysis. Findings were discussed. A short leg posterior splint was applied by myself. The application was checked; the RLE remained NVI. She was encouraged to follow up with podiatry for a recheck, further evaluation and treatment. She has a wheelchair at home. She is aware she is to remain nonweighbearing on the RLE. Differential Diagnosis Differential diagnosis: Likely ankle sprain and strain, ankle fracture and other (Leg fracture, knee sprain/strain, cervical strain/fracture) Medical Records Attestation: I reviewed the patient's medical records. Imaging Data XR: Attestation: I have reviewed the pertinent imaging results. Radiologist's impression: ITS Impressions Ankle X-Ray 07/02/24 17:54 IMPRESSION: Nondisplaced fracture of the right distal fibular metadiaphysis at the level of the syndesmosis likely representing a Maravilla B ankle injury. No acute osseous abnormality of the left ankle. No acute osseous abnormality of the lateral knees. Electronically authenticated by: PAT CRUM Date: 07/02/2024 19:[address] 07/02/24 17:54 IMPRESSION: No acute fracture or dislocation. Electronically authenticated by: [employer] Date: 07/02/2024 19:16 Knee X-Ray 07/02/24 17:54 IMPRESSION: Nondisplaced fracture of the right distal fibular metadiaphysis at the level of the syndesmosis likely representing a Maravilla B ankle injury. No acute osseous abnormality of the left ankle. No acute osseous abnormality of the lateral knees. Electronically authenticated by: [employer] Date: 07/02/2024 19:11 Discharge Plan Discharge Chief Complaint: Extremity Injury, Lower Clinical Impression: Fibula fracture Patient Disposition: Home, Self-Care Time of Disposition Decision: 19:48 Condition: Good Mode of Transportation: Private Vehicle Prescriptions / Home Meds: No Action divalproex 250 mg tablet,delayed release (DR/EC) 250 mg PO QID duloxetine 20 mg capsule,delayed release(DR/EC) 20 mg PO BID duloxetine 60 mg capsule,delayed release(DR/EC) 60 mg PO DAILY meloxicam 7.5 mg tablet 7.5 mg PO DAILY oxcarbazepine 300 mg tablet 450 mg PO BEDTIME oxybutynin chloride 15 mg tablet extended release 24hr 15 mg PO DAILY pregabalin 150 mg capsule 150 mg PO BID hydrocodone-acetaminophen 5-325 mg tablet 1 tab PO Q6H PRN (Reason: pain) 3 Days Qty: 12 0RF Rx Instructions: DX: S00.83XA ondansetron 4 mg tablet,disintegrating 4 mg PO Q6H PRN (Reason: nausea and vomiting) Qty: 12 0RF Print Language: Georgian Additional Instructions: Remain nonweightbearing on the right leg. Keep the splint in place and keep it dry. Referrals: INDER ROBERSON [Primary Care Provider] - 1 week Bubba Aguirre DPM [Physician] - 1 week
--- NOTE | 2024-07-02 17:54 | CT_ITS ---
The [address] [address] Patient Name: CARINE WATSON MRN: [id number] date: 1960 Sex: F Assigned Patient Location: ER Current Patient Location: ER Accession/Order Number: [id number] Exam Date: 07/02/2024 17:40 Report Date: 07/02/2024 19:16 At the request of: CATHY MENDEZ Procedure: CT cervical spine wo con EXAMINATION: CT cervical spine wo con 07/02/2024 5:40 PM EDT HISTORY: pain, fall COMPARISON: 11/15/2023 TECHNIQUE: Axial CT scans through the cervical spine were obtained without contrast administration. Sagittal and coronal reconstruction images were obtained. Dose reduction techniques were achieved by using automated exposure control and/or adjustment of mA and/or kV according to patient size and/or use of iterative reconstruction technique. FINDINGS: No acute fracture or dislocation is shown. No suspicious lesions. Moderate C5-C6 right neural foraminal narrowing secondary to uncinate spondylosis. No evidence of high-grade spinal stenosis. The prevertebral soft tissue space appears normal. Visualized intracranial contents appear normal. Visualized neck shows no adenopathy. Visualized lung apices are clear. CT/CT cervical spine wo con IMPRESSION: No acute fracture or dislocation. Electronically authenticated by: PAT CRUM Date: 07/02/2024 19:16
--- NOTE | 2024-07-02 17:54 | XR_ITS ---
The [place] [id number] Patient Name: CARINE WATSON MRN: [id number] date: 1960 Sex: F Assigned Patient Location: ED.MAIN Current Patient Location: Accession/Order Number: [id number] Exam Date: 07/02/2024 17:40 Report Date: 07/02/2024 19:11 At the request of: CATHY MENDEZ Procedure: XR ankle ISSA min 3V XR ankle ISSA min 3V, XR knee ISSA 3V 07/02/2024 5:40 PM EDT CLINICAL INDICATION: Fall COMPARISON: None. TECHNIQUE: 3 views of the bilateral knees. 3 views of the bilateral ankles. FINDINGS: Bilateral knees The bones are intact. The alignment is anatomic. There are degenerative changes of the joints with severe medial tibiofemoral compartment osteoarthritis. Small bilateral suprapatellar joint effusion. Bilateral ankles There is a nondisplaced fracture of the right distal fibular metadiaphysis at the level of syndesmosis. Lateral malleolus soft tissue swelling. No acute osseous abnormality of the left ankle. XR/XR ankle ISSA min 3V IMPRESSION: Nondisplaced fracture of the right distal fibular metadiaphysis at the level of the syndesmosis likely representing a Maravilla B ankle injury. No acute osseous abnormality of the left ankle. No acute osseous abnormality of the lateral knees. Electronically authenticated by: PAT CRUM Date: 07/02/2024 19:11
--- NOTE | 2024-07-02 17:54 | XR_ITS ---
The [address] [address] Patient Name: CARINE WATSON MRN: [id number] date: 1960 Sex: F Assigned Patient Location: ED.MAIN Current Patient Location: Accession/Order Number: [id number] Exam Date: 07/02/2024 17:40 Report Date: 07/02/2024 19:11 At the request of: CATHY MENDEZ Procedure: XR knee ISSA 3V XR ankle ISSA min 3V, XR knee ISSA 3V 07/02/2024 5:40 PM EDT CLINICAL INDICATION: Fall COMPARISON: None. TECHNIQUE: 3 views of the bilateral knees. 3 views of the bilateral ankles. FINDINGS: Bilateral knees The bones are intact. The alignment is anatomic. There are degenerative changes of the joints with severe medial tibiofemoral compartment osteoarthritis. Small bilateral suprapatellar joint effusion. Bilateral ankles There is a nondisplaced fracture of the right distal fibular metadiaphysis at the level of syndesmosis. Lateral malleolus soft tissue swelling. No acute osseous abnormality of the left ankle. XR/XR knee ISSA 3V IMPRESSION: Nondisplaced fracture of the right distal fibular metadiaphysis at the level of the syndesmosis likely representing a Maravilla B ankle injury. No acute osseous abnormality of the left ankle. No acute osseous abnormality of the lateral knees. Electronically authenticated by: PAT CRUM Date: 07/02/2024 19:11
[2024-07-02 18:49] VITALS: BP 116/76; PULSE 89; O2SAT 96
[2024-07-02] MEDS: HYDROCODONE/ACET 5-325 MG TABLET 1 TAB PO (20:02)
== END 2024-07-02 22:14 | disposition home or self-care (01) ==
PROVIDERS: Emergency Provider Emergency Medicine; PCP Nurse Practitioner
DX: S82.831A Other fracture of upper and lower end of right fibula, initial encounter for closed fracture (principal); W19.XXXA Unspecified fall, initial encounter; G35 Multiple sclerosis
CPT/HCPCS: 29515; 72125; 73562; 73610; 99284

== ENCOUNTER 2024-07-12 13:30 | Observation (INO) | payer MEDICARE, SELFPAY ==
[2024-07-12 13:32] VITALS: BP 142/76; PULSE 110; TEMP 36.6; O2SAT 100; BMI 43.6
--- NOTE | 2024-07-12 13:33 | XR_ITS ---
[address] [address] Patient Name: CARINE WATSON MRN: [id number] date: 1960 Sex: F Assigned Patient Location: ER Current Patient Location: ER Accession/Order Number: [id number] Exam Date: 07/12/2024 14:01 Report Date: 07/12/2024 14:29 At the request of: CALI SANCHEZ Procedure: XR tibia fibula ISSA 2V EXAMINATION: XR femur ISSA 2V, XR tibia fibula ISSA 2V HISTORY: fall COMPARISON: No relevant comparison available. FINDINGS: RIGHT FINDINGS: BONES: Subtle contour deformity of the distal fibula, stable known fracture. No new fracture or dislocation of the femur or tibia/fibula. Mild hip osteoarthritis. Moderate to severe knee osteoarthritis with [id number] articulation of the medial compartment SOFT TISSUES: Negative. No visible soft tissue swelling. OTHER: Negative. LEFT FINDINGS: BONES: No acute fracture or dislocation. Mild left hip osteoarthropathy with marginal osteophyte formation. Moderate knee osteoarthropathy with marginal osteophyte formation. Moderate narrowing of medial joint space SOFT TISSUES: Negative. No visible soft tissue swelling. OTHER: Negative. XR/XR tibia fibula ISSA 2V IMPRESSION: RIGHT CONCLUSION: No new fracture. Stable distal fibular fracture poorly visualized LEFT CONCLUSION: No acute fracture Electronically authenticated by: [employer] Date: 07/12/2024 14:29
--- NOTE | 2024-07-12 13:33 | CT_ITS ---
The [address] [address] Patient Name: CARINE WATSON MRN: [id number] date: 1960 Sex: F Assigned Patient Location: ER Current Patient Location: ER Accession/Order Number: [id number] Exam Date: 07/12/2024 13:56 Report Date: 07/12/2024 14:39 At the request of: CALI SANCHEZ Procedure: CT pelvis wo con EXAMINATION: CT pelvis wo con HISTORY: fall COMPARISON: No relevant comparison available. TECHNIQUE: Multi-planar CT images were created without IV contrast. Dose reduction techniques were achieved by using automated exposure control and/or adjustment of mA and/or kV according to patient size and/or use of iterative reconstruction technique. FINDINGS: BONES: No acute fracture or dislocation. Mild bilateral hip osteoarthropathy with joint space narrowing and marginal osteophyte formation. Serpiginous sclerosis bilateral femoral heads consistent with avascular necrosis. SOFT TISSUES: Negative. No visible soft tissue swelling. EFFUSION: None visible. OTHER: Large amount of stool in the rectum which measures 7.8 cm transversely. A small ventral hernia containing mesenteric fat without strangulation CT/CT pelvis wo con IMPRESSION: No acute fracture Electronically authenticated by: [employer] Date: 07/12/2024 14:39
--- NOTE | 2024-07-12 13:33 | XR_ITS ---
[place] [id number] Patient Name: CARINE WATSON MRN: [id number] date: 1960 Sex: F Assigned Patient Location: ER Current Patient Location: ER Accession/Order Number: [id number] Exam Date: 07/12/2024 14:01 Report Date: 07/12/2024 14:29 At the request of: CALI SANCHEZ Procedure: XR femur ISSA 2V EXAMINATION: XR femur ISSA 2V, XR tibia fibula ISSA 2V HISTORY: fall COMPARISON: No relevant comparison available. FINDINGS: RIGHT FINDINGS: BONES: Subtle contour deformity of the distal fibula, stable known fracture. No new fracture or dislocation of the femur or tibia/fibula. Mild hip osteoarthritis. Moderate to severe knee osteoarthritis with [id number] articulation of the medial compartment SOFT TISSUES: Negative. No visible soft tissue swelling. OTHER: Negative. LEFT FINDINGS: BONES: No acute fracture or dislocation. Mild left hip osteoarthropathy with marginal osteophyte formation. Moderate knee osteoarthropathy with marginal osteophyte formation. Moderate narrowing of medial joint space SOFT TISSUES: Negative. No visible soft tissue swelling. OTHER: Negative. XR/XR femur ISSA 2V IMPRESSION: RIGHT CONCLUSION: No new fracture. Stable distal fibular fracture poorly visualized LEFT CONCLUSION: No acute fracture Electronically authenticated by: [employer] Date: 07/12/2024 14:29
--- NOTE | 2024-07-12 13:42 | ED_ITS ---
HPI HPI - Fall General Chief Complaint: Fall Stated Complaint: FALL Time Seen by Provider: 07/12/24 13:32 Source: patient Mode of arrival: ambulance Limitations: no limitations History of Present Illness HPI Narrative: Patient is a 64-year-old female with a history of traumatic brain injury, MS who is wheelchair-bound, presents to the ER by EMS for evaluation of pain in the lower extremities. Patient states that she has a history of nerve damage to her left lower extremity. She was seen in this emergency department on 07/02/2024 and diagnosed with a nondisplaced right fibular fracture. She still has a splint in place. No surgeries were performed. Her elderly mother cares for her at home and is her legal guardian. Mother apparently reported to EMS that she would like the patient placed in rehab. They were transferring the patient from her wheelchair to a bed when the patient fell onto her bottom. She had no loss of consciousness. She takes no blood thinners. Patient now complains of an increase in pain to the left lower extremity which was unaffected with the previous fall. EMS gave Toradol prior to arrival. Related Data Home Medications ?Medication ?Instructions ?Recorded ?Confirmed divalproex 250 mg tablet,delayed 250 mg PO QID 11/15/23 11/15/23 release duloxetine 20 mg capsule,delayed 20 mg PO BID 11/15/23 11/15/23 release duloxetine 60 mg capsule,delayed 60 mg PO DAILY 11/15/23 11/15/23 release meloxicam 7.5 mg tablet 7.5 mg PO DAILY 11/15/23 11/15/23 oxcarbazepine 300 mg tablet 450 mg PO BEDTIME 11/15/23 11/15/23 oxybutynin chloride 15 mg 15 mg PO DAILY 11/15/23 11/15/23 tablet,extended release 24 hr pregabalin 150 mg capsule 150 mg PO BID 11/15/23 11/15/23 Previous Rx's ?Medication ?Instructions ?Recorded hydrocodone 5 mg-acetaminophen 325 1 tab PO Q6H PRN pain 3 days #12 11/15/23 mg tablet tabs ondansetron 4 mg disintegrating 4 mg PO Q6H PRN nausea and 11/15/23 tablet vomiting #12 tabs Allergies Allergy/AdvReac Type Severity Reaction Status Date / Time latex AdvReac Mild Verified 11/15/23 18:04 Penicillins AdvReac Mild Verified 11/15/23 18:03 rofecoxib [From Vioxx] AdvReac Mild Verified 11/15/23 18:03 Opioid HPI Opioid Management Most Recent Pain and Opioid Data: Last Pain Scale 4 05/02/24 07:51 Review of Systems ROS Constitutional Denies: fever or chills Ears, nose, mouth, and throat Denies: throat pain, neck pain or nasal congestion Respiratory Denies: shortness of breath Gastrointestinal Denies: nausea or vomiting Musculoskeletal Reports: back pain, extremity pain, joint pain and limited range of motion; Denies: neck pain or extremity swelling Integumentary/Breast Denies: rash Neurological Denies: numbness in extremities or weakness in extremities Hematologic/Lymphatic Denies: easy bruising or easy bleeding PFSH PFSH Social History Smoking status: Never smoker Little interest or pleasure in doing things: not at all Feeling down, depressed, or hopeless: not at all Exam Narrative Exam Narrative: Gen.: Awake, alert, in no distress Head: Normocephalic, atraumatic ENT: Moist mucous membranes, no facial or dental injury noted. C-spine nontender with full range of motion Respiratory: No respiratory distress Extremities: Limited flexion and extension of the left knee, splint to the right lower extremity distal to the knee that is intact. No bony tenderness of the pelvis, right lower extremity. Normal flexion and extension of the toes in the bilateral lower extremities, limited flexion and extension of the left knee with no bony point tenderness or obvious deformity. No appreciable swelling. Diffuse mild tenderness of the posterior hips and low back with no bony point tenderness or obvious deformity. Psych: Normal mood and affect Neuro: At baseline Skin: Warm, dry, intact Constitutional Vital Signs, click to edit/add: Last Vital Signs Temp 97.8 F 07/12/24 13:32 Pulse 110 H 07/12/24 13:32 Resp 20 07/12/24 13:32 BP 142/76 H 07/12/24 13:32 Pulse Ox 100 07/12/24 13:32 O2 Del Method Room Air 07/12/24 13:32 Course Vital Signs Vital signs: Vital Signs Temperature 97.8 F 07/12/24 13:32 Pulse Rate 110 H 07/12/24 13:32 Respiratory Rate 20 07/12/24 13:32 Blood Pressure 142/76 H 07/12/24 13:32 Pulse Oximetry 100 07/12/24 13:32 Oxygen Delivery Method Room Air 07/12/24 13:32 Temperature 97.8 F 07/12/24 13:32 Pulse Rate 110 H 07/12/24 13:32 Respiratory Rate 20 07/12/24 13:32 Blood Pressure 142/76 H 07/12/24 13:32 Pulse Oximetry 100 07/12/24 13:32 Oxygen Delivery Method Room Air 07/12/24 13:32 MDM - Fall MDM Narrative Medical decision making narrative: Patient treated with IV fluids, repeat x-rays obtained of the lower extremities and CT of the pelvis which are unremarkable aside from an unchanged right fibular fracture. Mother expressed concern that she cannot care for the patient and needs rehab placement for the patient. Patient is admitted to the hospitalist for observation. Basic lab studies obtained including urine specimen stable at time of admission. SHARED APC VISIT, PHYSICIAN ATTESTATION: [id number] I performed a substantive part of the MDM during the patient?s E/M visit. I personally evaluated and examined the patient. I personally made or approved the documented management plan and acknowledge its risk of complications. Medical Records Attestation: I reviewed the patient's medical records. Lab Data Attestation: I reviewed the patient's lab results. Labs: Lab Results 07/12/24 07/12/24 Range/Units 13:46 14:45 WBC 11.2 H (4.0-11.0) 10^3/uL RBC 4.62 (4.20-5.40) 10^6/uL Hgb 14.7 (12.0-16.0) g/dL Hct 44.3 (36.0-48.0) % MCV 95.9 (81.0-99.0) fL MCH 31.8 (26.7-34.0) pg MCHC 33.2 (29.9-35.2) g/dL RDW 13.5 (11.0-15.0) % Plt Count 346 (150-450) 10^3/uL MPV 10.2 (9.5-13.5) fL Neut % (Auto) 70.8 (43.0-75.0) % Lymph % (Auto) 15.2 L (20.5-60.0) % [place] % (Auto) 12.4 H (1.7-12.0) % Eos % (Auto) 0.9 (0.9-7.0) % Baso % (Auto) 0.4 (0.2-2.0) % Neut # (Auto) 7.9 H (1.4-6.5) 10^3/uL Lymph # (Auto) 1.7 (1.2-3.8) 10^3/uL [place] # (Auto) 1.4 H (0.3-0.8) 10^3/uL Eos # (Auto) 0.1 (0.0-0.7) 10^3/uL Baso # (Auto) 0.1 (0.0-0.1) 10^3/uL Abs Immat Gran (auto) 0.03 (0.00-0.03) 10^3/uL Imm/Tot Granulo (auto) 0.3 (0.0-0.5) % Sodium 134 L (136-145) mmol/L Potassium 3.5 (3.5-5.1) mmol/L Chloride 98 (98-107) mmol/L Carbon Dioxide 25.6 (21.0-32.0) mmol/L Anion Gap 13.9 BUN 15.0 (7.0-18.0) mg/dL Creatinine 0.94 (0.55-1.02) mg/dL Est GFR ( Amer) >60 (>=60 mL/min/1.73m^2) Est GFR (Non-Af Amer) 60 (>=60 mL/min/1.73m^2) BUN/Creatinine Ratio 16.0 Glucose 142 H (74-106) mg/dL Lactate 2.2 H* (0.4-2.0) mmol/L Calcium 9.7 (8.5-10.1) mg/dL Total Bilirubin 0.7 (0.2-1.0) mg/dL AST 13 L (15-37) U/L ALT 10 L (14-59) U/L Alkaline Phosphatase 93 (46-116) U/L Total Protein 7.2 (6.4-8.2) g/dL Albumin 2.8 L (3.4-5.0) g/dL Globulin 4.4 g/dL Albumin/Globulin Ratio 0.6 Urine Color Yellow (YELLOW) Urine Clarity Clear (CLEAR) Urine pH 6.5 (5.0-9.0) Ur Specific [place] 1.020 (1.005-1.025) Urine Protein Negative (NEG/TRACE) mg/dL Urine Glucose (UA) Negative (NEGATIVE) mg/dL Urine Ketones Negative (NEGATIVE) mg/dL Urine Occult Blood Small A (NEGATIVE) Urine Nitrite Negative (NEGATIVE) Urine Bilirubin Negative (NEGATIVE) Urine Urobilinogen 2.0 A (0.2-1.0) EU/dL Ur Leukocyte Esterase Negative (NEGATIVE) Imaging Data CT scan - pelvis: Radiologist's impression: ITS Impressions Femur X-Ray 07/12/24 13:33 IMPRESSION: RIGHT CONCLUSION: No new fracture. Stable distal fibular fracture poorly visualized LEFT CONCLUSION: No acute fracture Electronically authenticated by: RUSSEL STREETER Date: 07/12/2024 14:[address] 07/12/24 13:33 IMPRESSION: No acute fracture Electronically authenticated by: RUSSEL STREETER Date: 07/12/2024 14:39 Tibia/Fibula X-Ray 07/12/24 13:33 IMPRESSION: RIGHT CONCLUSION: No new fracture. Stable distal fibular fracture poorly visualized LEFT CONCLUSION: No acute fracture Electronically authenticated by: RUSSEL STREETER Date: 07/12/2024 14:29 Discharge Plan Discharge Chief Complaint: Fall Patient Disposition: Admitted as Observation Time of Disposition Decision: 15:09 Prescriptions / Home Meds: No Action divalproex 250 mg tablet,delayed release (DR/EC) 250 mg PO QID duloxetine 20 mg capsule,delayed release(DR/EC) 20 mg PO BID duloxetine 60 mg capsule,delayed release(DR/EC) 60 mg PO DAILY meloxicam 7.5 mg tablet 7.5 mg PO DAILY oxcarbazepine 300 mg tablet 450 mg PO BEDTIME oxybutynin chloride 15 mg tablet extended release 24hr 15 mg PO DAILY pregabalin 150 mg capsule 150 mg PO BID hydrocodone-acetaminophen 5-325 mg tablet 1 tab PO Q6H PRN (Reason: pain) 3 Days Qty: 12 0RF Rx Instructions: DX: S00.83XA ondansetron 4 mg tablet,disintegrating 4 mg PO Q6H PRN (Reason: nausea and vomiting) Qty: 12 0RF Print Language: Scottish Referrals: INDER ROBERSON [Primary Care Provider] - 1 week
[2024-07-12 14:01] LABS: Basophils Absolute Auto 0.1 10^3/uL (0.0-0.1); Basophils Percent Auto 0.4 % (0.2-2.0); Eosinophils Absolute Auto 0.1 10^3/uL (0.0-0.7); Eosinophils Percent Auto 0.9 % (0.9-7.0); Hematocrit 44.3 % (36.0-48.0); Hemoglobin 14.7 g/dL (12.0-16.0); Immature Granulocytes Abs Auto 0.03 10^3/uL (0.00-0.03); Immature Granulocytes Pct Auto 0.3 % (0.0-0.5); Lymphocytes Absolute Auto 1.7 10^3/uL (1.2-3.8); Lymphocytes Percent Auto 15.2 % (20.5-60.0); Mean Corpuscular HGB Conc 33.2 g/dL (29.9-35.2); Mean Corpuscular Hemoglobin 31.8 pg (26.7-34.0); Mean Corpuscular Volume 95.9 fL (81.0-99.0); Mean Platelet Volume 10.2 fL (9.5-13.5); Monocytes Absolute Auto 1.4 10^3/uL (0.3-0.8); Monocytes Percent Auto 12.4 % (1.7-12.0); Neutrophils Absolute Auto 7.9 10^3/uL (1.4-6.5); Neutrophils Percent Auto 70.8 % (43.0-75.0); Platelet Count 346 10^3/uL (150-450); Red Blood Count 4.62 10^6/uL (4.20-5.40); Red Cell Distribution Width 13.5 % (11.0-15.0); White Blood Count 11.2 10^3/uL (4.0-11.0)
[2024-07-12 14:08] LABS: Alanine Aminotransferase 10 U/L (14-59); Albumin Globulin Ratio 0.6; Albumin Level 2.8 g/dL (3.4-5.0); Alkaline Phosphatase 93 U/L (46-116); Anion Gap 13.9; Aspartate Amino Transferase 13 U/L (15-37); Bilirubin Total 0.7 mg/dL (0.2-1.0); Calcium 9.7 mg/dL (8.5-10.1); Carbon Dioxide 25.6 mmol/L (21.0-32.0); Chloride 98 mmol/L (98-107); Estimated GFR (African America >60 (>=60 mL/min/1.73m^2); Estimated GFR (Non-African Ame 60 (>=60 mL/min/1.73m^2); Globulin 4.4 g/dL; Glucose 142 mg/dL (74-106); Potassium 3.5 mmol/L (3.5-5.1); Sodium 134 mmol/L (136-145); Total Protein 7.2 g/dL (6.4-8.2)
[2024-07-12 14:12] LABS: Lactate/Lactic Acid 2.2 mmol/L (0.4-2.0)
[2024-07-12] MEDS: 0.9 % SODIUM CHLORIDE 1,000 ML 999 ML IV (14:18)
[2024-07-12 14:50] LABS: Bilirubin Urine NEGATIVE (NEGATIVE); Blood Urine SMALL (NEGATIVE); Clarity Urine CLEAR (CLEAR); Color Urine YELLOW (YELLOW); Glucose Urine UA NEGATIVE (NEGATIVE); Ketones Urine NEGATIVE (NEGATIVE); Leukocyte Esterase Urine NEGATIVE (NEGATIVE); Nitrite Urine NEGATIVE (NEGATIVE); Protein Urine NEGATIVE (NEG/TRACE); pH Urine 6.5 (5.0-9.0)
[2024-07-12 14:51] LABS: Urine Microscopic Indicated YES
[2024-07-12 15:05] LABS: WBC Urine 0-2 #/HPF (NONE SEEN)
[2024-07-12 15:06] LABS: Bacteria Urine TRACE #/HPF (NONE SEEN); Cast Seen? NONE SEEN #/LPF (NONE SEEN); Crystals Seen? None Seen #/HPF (None Seen); Mucus Urine TRACE (NONE SEEN); Squamous Epithelial Cell Urine FEW #/LPF (NONE/RARE); Transitional Epi Cells Urine RARE #/LPF (NONE SEEN); Urine Culture Indicated NO
[2024-07-12 15:54] VITALS: BP 131/78; PULSE 91; TEMP 36.4; O2SAT 92; BMI 42.5
[2024-07-12] MEDS: LACTATED RINGER'S SOLUTION 1,000 ML 125 ML IV (16:10)
[2024-07-12 16:18] VITALS: O2SAT 92
[2024-07-12] MEDS: DIVALPROEX SODIUM 250 MG TABLET.DR PO ×2 (17:32→21:29)
[2024-07-12] MEDS: ENOXAPARIN SODIUM 40 MG/0.4 ML SYRINGE SUBQ (17:32)
[2024-07-12 19:52] VITALS: BP 135/72; PULSE 87; TEMP 36.5; O2SAT 90
[2024-07-12 21:15] VITALS: O2SAT 93
[2024-07-12] MEDS: DOCUSATE SODIUM 100 MG CAPSULE PO (21:29)
[2024-07-12] MEDS: PREGABALIN 100 MG CAPSULE PO (21:29)
[2024-07-12] MEDS: OXcarbazepine 300 MG TABLET 450 MG PO (21:29)
[2024-07-13] VITALS (7 sets, daily range): BP systolic 116–124; BP diastolic 65–75; PULSE 85–93; TEMP 36.6–36.7; O2SAT 90–93
[2024-07-13] MEDS: LACTATED RINGER'S SOLUTION 1,000 ML 125 ML IV ×2 (00:24→08:41)
[2024-07-13 01:42] LABS: Bilirubin Urine SMALL (NEGATIVE); Blood Urine LARGE (NEGATIVE); Clarity Urine CLEAR (CLEAR); Color Urine YELLOW (YELLOW); Glucose Urine UA 100 mg/dL (NEGATIVE); Ketones Urine NEGATIVE (NEGATIVE); Leukocyte Esterase Urine LARGE (NEGATIVE); Nitrite Urine POSITIVE (NEGATIVE); Protein Urine 30 mg/dL (NEG/TRACE); Urobilinogen Urine >=8.0 EU/dL (0.2-1.0)
[2024-07-13 01:43] LABS: Urine Microscopic Indicated YES
[2024-07-13 01:58] LABS: Bacteria Urine LARGE #/HPF (NONE SEEN); Mucus Urine NONE SEEN (NONE SEEN)
[2024-07-13 01:59] LABS: Squamous Epithelial Cell Urine FEW #/LPF (NONE/RARE)
[2024-07-13 02:00] LABS: Cast Seen? NONE SEEN #/LPF (NONE SEEN); Crystals Seen? None Seen #/HPF (None Seen); Urine Culture Indicated YES
[2024-07-13] MEDS: DIVALPROEX SODIUM 250 MG TABLET.DR PO ×4 (05:55→21:44)
[2024-07-13 06:14] LABS: Basophils Percent Auto 0.4 % (0.2-2.0); Eosinophils Absolute Auto 0.1 10^3/uL (0.0-0.7); Eosinophils Percent Auto 0.8 % (0.9-7.0); Hematocrit 35.5 % (36.0-48.0); Hemoglobin 11.7 g/dL (12.0-16.0); Immature Granulocytes Abs Auto 0.01 10^3/uL (0.00-0.03); Immature Granulocytes Pct Auto 0.1 % (0.0-0.5); Lymphocytes Absolute Auto 1.5 10^3/uL (1.2-3.8); Lymphocytes Percent Auto 21.3 % (20.5-60.0); Mean Corpuscular Hemoglobin 31.5 pg (26.7-34.0); Mean Corpuscular Volume 95.4 fL (81.0-99.0); Mean Platelet Volume 10.1 fL (9.5-13.5); Monocytes Percent Auto 13.3 % (1.7-12.0); Neutrophils Absolute Auto 4.6 10^3/uL (1.4-6.5); Neutrophils Percent Auto 64.1 % (43.0-75.0); Platelet Count 305 10^3/uL (150-450); Red Blood Count 3.72 10^6/uL (4.20-5.40); Red Cell Distribution Width 13.7 % (11.0-15.0); White Blood Count 7.2 10^3/uL (4.0-11.0)
[2024-07-13 06:31] LABS: Alanine Aminotransferase <6 U/L (14-59); Albumin Globulin Ratio 0.6; Albumin Level 2.2 g/dL (3.4-5.0); Alkaline Phosphatase 71 U/L (46-116); Anion Gap 9.6; Aspartate Amino Transferase 7 U/L (15-37); BUN Creatinine Ratio 23.6; Bilirubin Total 0.5 mg/dL (0.2-1.0); Calcium 8.8 mg/dL (8.5-10.1); Carbon Dioxide 27.2 mmol/L (21.0-32.0); Chloride 102 mmol/L (98-107); Estimated GFR (African America >60 (>=60 mL/min/1.73m^2); Estimated GFR (Non-African Ame >60 (>=60 mL/min/1.73m^2); Globulin 3.6 g/dL; Glucose 88 mg/dL (74-106); Potassium 3.8 mmol/L (3.5-5.1); Sodium 135 mmol/L (136-145); Total Protein 5.8 g/dL (6.4-8.2)
[2024-07-13] MEDS: ACETAMINOPHEN 325 MG TABLET 650 MG PO ×2 (08:40→15:45)
[2024-07-13] MEDS: DOCUSATE SODIUM 100 MG CAPSULE PO ×2 (08:40→21:44)
[2024-07-13] MEDS: OXYCODONE HCL 5 MG TABLET PO ×2 (08:40→15:45)
[2024-07-13] MEDS: MELOXICAM 7.5 MG TABLET PO (08:40)
[2024-07-13] MEDS: DULOXETINE HCL 60 MG CAPSULE.DR PO (08:41)
[2024-07-13] MEDS: PREGABALIN 100 MG CAPSULE PO ×2 (08:41→21:44)
[2024-07-13] MEDS: OXYBUTYNIN CHLORIDE 5 MG TAB XL 15 MG PO (08:41)
[2024-07-13] MEDS: CEFTRIAXONE 1,000 MG in 0.9 % SODIUM CHLORIDE 50 ML 100 MG IV (09:23)
--- NOTE | 2024-07-13 09:41 | CM.NOTE ---
Rounds made with Dr. Guzman, discussed with pt plan of care. Pt lives at home with mother and has L sided weakness from traumatic brain injury and has fx to R fibula. Pt has been using wheelchair d/t weight bearing status with new fracture. Pt at this time will have PT and OT evaluation, pt requesting skilled therapy and prefers [facility].
--- NOTE | 2024-07-13 09:54 | P.HP_ITS ---
HPI H&P: HPI History of Present Illness Chief complaint: FALL, R FIBULAR FX Narrative: 64-year-old female with history of traumatic brain injury resulting in left upper and lower extremity weakness and uses a walker to ambulate had a fall about 2 weeks ago and was evaluated in ER. Patient was found to have right distal fibular fracture and was discharged home with nonweightbearing and follow-up with orthopedic as outpatient. Patient has been staying at home since then and barely managing and now currently more or less bedbound because she is unable to use a walker. She fell from the bed yesterday and was unable to get up and was very uncomfortable. She was brought into ER to ensure she did not have any significant traumatic injury. Her workup was unremarkable and there was no acute/new fracture or significant injury. However because of pain, right fibular fracture and left lower extremity weakness, she is unable to ambulate at home. Patient also reports dysuria, polyuria and was found to have UTI on urinalysis. Patient also appeared clinically dry on arrival and was treated with IV hydration. Patient is subjectively feeling better but she is unable to bear weight on her right lower extremity because of fibular fracture which is her good limb and cannot ambulate using a walker because of left lower extremity weakness from TBI. Opioid HPI Opioid Management Most Recent Pain and Opioid Data: Last Pain Scale 7 07/13/24 08:40 Last Pain Assessment 07/13/24 07:00 Last MAR Pain Assessment 07/13/24 08:40 Last ORT Total Score 3 07/12/24 15:54 Last ORT Risk Category Low Risk 07/12/24 15:54 Review of Systems ROS Status of ROS 10 or more systems reviewed and unremark able except as noted in history and below [facility] Medical History (Updated 07/13/24 @ 09:56 by Shaikh Megan MD) H/O traumatic brain injury ?Z87.820 - Personal history of traumatic brain injury (ICD-10) Cat scratch fever ?A28.1 - Cat-scratch disease (ICD-10) Aneurysm ?I72.9 - Aneurysm of unspecified site (ICD-10) Arm fracture, left ?S42.302A - Unspecified fracture of shaft of humerus, left arm, initial encounter for closed fracture (ICD-10) Depression ?F32.A - Depression, unspecified (ICD-10) Anxiety ?F41.9 - Anxiety disorder, unspecified (ICD-10) DVT (deep venous thrombosis) ?I82.409 - Acute embolism and thrombosis of unspecified deep veins of unspecified lower extremity (ICD-10) Seizure disorder ?G40.909 - Epilepsy, unspecified, not intractable, without status epilepticus (ICD-10) Traumatic brain injury ?S06.9XAA - Unspecified intracranial injury with loss of consciousness status unknown, initial encounter (ICD-10) Surgical History (Updated 07/12/24 @ 16:16 by Romelia Gomez) Hx of tracheostomy ?Z98.890 - Other specified postprocedural states (ICD-10) Social History Smoking status: Never smoker Highest level of school completed/degree received: some college, no degree Little interest or pleasure in doing things: not at all Feeling down, depressed, or hopeless: not at all Meds Home Medications and Allergies Home Medications ?Medication ?Instructions ?Recorded ?Confirmed ?Type duloxetine 20 mg capsule,delayed 20 mg PO BID 11/15/23 07/12/24 History release duloxetine 60 mg capsule,delayed 60 mg PO BEDTIME 11/15/23 07/12/24 History release meloxicam 7.5 mg tablet 7.5 mg PO DAILY 11/15/23 07/12/24 History oxcarbazepine 300 mg tablet 600 mg PO BEDTIME 11/15/23 07/12/24 History oxybutynin chloride 15 mg 15 mg PO DAILY 11/15/23 07/12/24 History tablet,extended release 24 hr alprazolam 0.5 mg tablet 0.5 mg PO TID PRN anxiety 07/12/24 07/12/24 History divalproex 250 mg tablet,extended 250 mg PO QID 07/12/24 07/12/24 History release 24 hr pregabalin 100 mg capsule 100 mg PO BID 07/12/24 07/12/24 History Allergies Allergy/AdvReac Type Severity Reaction Status Date / Time latex AdvReac Mild Verified 11/15/23 18:04 Penicillins AdvReac Mild Verified 11/15/23 18:03 rofecoxib [From Vioxx] AdvReac Mild Verified 11/15/23 18:03 Exam Constitutional Vital Signs, click to edit/add: Last Vital Signs Temp 98.0 F 07/13/24 08:31 Pulse 93 H 07/13/24 08:31 Resp 18 07/13/24 08:31 BP 124/65 07/13/24 08:31 Pulse Ox 91 L 07/13/24 08:31 O2 Del Method Room Air 07/13/24 08:31 Documenting provider has reviewed patient's vital signs: yes Common normals: no apparent distress and oriented x3 General appearance: cooperative HENMT Common normals: normocephalic and head/scalp atraumatic Head and scalp: normocephalic and atraumatic Eye Common normals: conjunctivae normal and no scleral icterus Conjunctiva: conjunctiva(e) normal Respiratory Common normals: normal respiratory effort and clear to auscultation bilaterally Effort & inspection: able to speak in complete sentences Auscultation: clear to auscultation bilaterally Cardio Common normals: regular rate, S1 normal heart sound and S2 normal heart sound Rate: regular rate Heart sounds: S1 normal and S2 normal GI Common normals: Normal to inspection, nondistended, normoactive bowel sounds present, soft to palpation, non-tender and no hepatosplenomegaly Palpation: soft and no hepatosplenomegaly Extremity Other: Right LE is in immobilized for fibular fx. Neuro Common normals: oriented x3 and moves all extremities Sensorium/orientation: awake, alert, oriented to person, oriented to place and oriented to time Other: LLE power is 2-3/5. LUE is 3-4/5 Psych Common normals: mental status grossly normal, thought process normal, denies hallucinations, denies homicidal ideation and denies suicidal ideation Results Labs Labs: Short CBC 07/12/24 07/13/24 Range/Units 13:46 05:55 WBC 11.2 H 7.2 (4.0-11.0) 10^3/uL Hgb 14.7 11.7 L (12.0-16.0) g/dL Hct 44.3 35.5 L (36.0-48.0) % Plt Count 346 305 (150-450) 10^3/uL BMP 07/12/24 07/13/24 13:46 05:55 Sodium 134 L 135 L Potassium 3.5 3.8 Chloride 98 102 Carbon Dioxide 25.6 27.2 BUN 15.0 17.0 Creatinine 0.94 0.72 Glucose 142 H 88 Calcium 9.7 8.8 Liver Function 07/12/24 07/13/24 Range/Units 13:46 05:55 Total Bilirubin 0.7 0.5 (0.2-1.0) mg/dL AST 13 L 7 L (15-37) U/L ALT 10 L <6 L (14-59) U/L Alkaline Phosphatase 93 71 (46-116) U/L Albumin 2.8 L 2.2 L (3.4-5.0) g/dL Urine 07/12/24 07/13/24 Range/Units 14:45 00:30 Urine Color Yellow Yellow (YELLOW) Urine Clarity Clear Clear (CLEAR) Urine pH 6.5 8.0 (5.0-9.0) Ur Specific [place] 1.020 1.020 (1.005-1.025) Urine Protein Negative 30 A (NEG/TRACE) mg/dL Urine Glucose (UA) Negative 100 A (NEGATIVE) mg/dL Assessment and Plan Assessment and Plan (1) Fall: Assessment and Plan: Mechanical fall. No loss of consciousness or head trauma. Trauma workup unremarkable with no acute fracture or significant injury. PT/OT evaluation. Qualifiers: Encounter type: subsequent encounter Qualified Code(s): W19.XXXD - Unspecified fall, subsequent encounter (2) UTI (urinary tract infection): Assessment and Plan: Patient has urinary incontinence And uses diaper. On IV Rocephin. Follow-up urine culture. Qualifiers: Urinary tract infection type: acute cystitis Hematuria presence: without hematuria Qualified Code(s): N30.00 - Acute cystitis without hematuria (3) Nondisplaced fracture of right fibula: Assessment and Plan: Nonsurgical management. Pain control. PT/OT evaluation. Nonweightbearing. Qualifiers: Encounter type: subsequent encounter Fibula location: distal physis (incl. [place]Sheth) Fracture healing: with routine healing Qualified Code(s): S89.301D - Unspecified physeal fracture of lower end of right fibula, subsequent encounter for fracture with routine healing (4) Ambulatory dysfunction: Assessment and Plan: Unable to ambulate because of left lower extremity weakness and right fibular fracture. PT/OT evaluation. Will need inpatient rehab (5) Seizure disorder: Assessment and Plan: Due to history of traumatic brain injury. On Depakote. Continue with same. (6) Depression: Assessment and Plan: Stable. Continue with home medication. Qualifiers: Depression Type: major depressive disorder Major depression recurrence: recurrent Active/Remission status: in full remission Qualified Code(s): F33.42 - Major depressive disorder, recurrent, in full remission (7) H/O traumatic brain injury: Assessment and Plan: History of traumatic brain injury when patient was 16 years old. She has residual left upper and lower extremity weakness from it. Urinary Catheter Management Urinary Catheter Management Straight: Cath placed during this visit: yes Urethral indwelling: Yes Reason for continuing: other continuation reason Insertion date: 07/12/24 Insertion time: 14:47
--- NOTE | 2024-07-13 10:06 | SWNOTE1 ---
SW spoke to case management and pt will need skilled stay and she would like [facility]. Referral sent to [facility]. Referral included face sheet, ED note, H&P, provider notes, case management report,nursing notes, diagnostic imaging, and med list. SW to send PT/OT once evaluated.
--- NOTE | 2024-07-13 12:27 | SWNOTE1 ---
SW spoke with physical therapy and they are recommending SNF. Therapy did let SW know that pt never made it to follow up with podiatry. SW to check with pt. SW spoke with pt and she never made it to see Dr. egan due to transport. SW to see if Dr. Guzman will place podiatry consult. SW advised pt that referral was sent to [facility]. CELSO spoke to Dr. Guzman and let him know that pt never followed up with podiatry. He will consult podiatry. SW let nurse know.
--- NOTE | 2024-07-13 12:31 | SWNOTE1 ---
SW sent PT note to [facility].
--- NOTE | 2024-07-13 12:36 | SWNOTE1 ---
Medicare Outpatient Observation Notice reviewed and discussed with patient. Pt. verbalized understanding and signed the form. Original given to patient and copy placed in patient?s chart.
[2024-07-13] MEDS: PNEUMOCOCCAL 23 VACCINE 25 MCG/0.5 ML SYRINGE IM (13:21)
[2024-07-13] MEDS: FLU VAC QS 2024(6MS UP)CEL/PF 60 MCG/0.5 ML SYRINGE IM (13:22)
--- NOTE | 2024-07-13 14:43 | SWNOTE1 ---
CELSO sent over H&P to Adeline at [facility].
--- NOTE | 2024-07-13 15:08 | SWNOTE1 ---
CELSO sent OT note to [facility].
--- NOTE | 2024-07-13 15:10 | SWNOTE1 ---
CELSO completed HENS and put together packet for weekend. Adeline at [facility] stated Gigi is working the weekend and she will call hospital if pt is approved. Plan is for pt to go to [facility] skilled.
[2024-07-13] MEDS: ENOXAPARIN SODIUM 40 MG/0.4 ML SYRINGE SUBQ (17:13)
--- NOTE | 2024-07-13 17:31 | PC.NURSE ---
rn contacted Dr. egan for consult, he stated he is out of town until tuesday but that RN could call down to er to acquire a walking boot for patient. RN did call down to ER and acquire said boot. Boot then applied. soft cast removed. patient tolerated well
[2024-07-13] MEDS: OXcarbazepine 300 MG TABLET 450 MG PO (21:44)
[2024-07-14 05:05] VITALS: O2SAT 91
[2024-07-14] MEDS: DIVALPROEX SODIUM 250 MG TABLET.DR PO ×4 (06:16→21:23)
[2024-07-14 06:25] VITALS: BP 112/72; PULSE 89; TEMP 36.4; O2SAT 91
[2024-07-14 06:33] LABS: Basophils Percent Auto 0.6 % (0.2-2.0); Eosinophils Absolute Auto 0.1 10^3/uL (0.0-0.7); Eosinophils Percent Auto 1.8 % (0.9-7.0); Hematocrit 34.9 % (36.0-48.0); Hemoglobin 11.4 g/dL (12.0-16.0); Immature Granulocytes Abs Auto 0.01 10^3/uL (0.00-0.03); Immature Granulocytes Pct Auto 0.1 % (0.0-0.5); Lymphocytes Absolute Auto 1.9 10^3/uL (1.2-3.8); Lymphocytes Percent Auto 27.3 % (20.5-60.0); Mean Corpuscular HGB Conc 32.7 g/dL (29.9-35.2); Mean Corpuscular Hemoglobin 31.3 pg (26.7-34.0); Mean Corpuscular Volume 95.9 fL (81.0-99.0); Mean Platelet Volume 10.1 fL (9.5-13.5); Monocytes Percent Auto 14.7 % (1.7-12.0); Neutrophils Absolute Auto 3.9 10^3/uL (1.4-6.5); Neutrophils Percent Auto 55.5 % (43.0-75.0); Platelet Count 276 10^3/uL (150-450); Red Blood Count 3.64 10^6/uL (4.20-5.40); Red Cell Distribution Width 13.8 % (11.0-15.0); White Blood Count 7.1 10^3/uL (4.0-11.0)
[2024-07-14 06:51] LABS: Alanine Aminotransferase <6 U/L (14-59); Albumin Globulin Ratio 0.6; Alkaline Phosphatase 65 U/L (46-116); Anion Gap 11.6; Aspartate Amino Transferase 8 U/L (15-37); BUN Creatinine Ratio 26.5; Bilirubin Total 0.3 mg/dL (0.2-1.0); Calcium 8.7 mg/dL (8.5-10.1); Carbon Dioxide 28.5 mmol/L (21.0-32.0); Chloride 100 mmol/L (98-107); Estimated GFR (African America >60 (>=60 mL/min/1.73m^2); Estimated GFR (Non-African Ame >60 (>=60 mL/min/1.73m^2); Globulin 3.4 g/dL; Glucose 80 mg/dL (74-106); Potassium 4.1 mmol/L (3.5-5.1); Sodium 136 mmol/L (136-145); Total Protein 5.4 g/dL (6.4-8.2)
[2024-07-14] MEDS: OXYBUTYNIN CHLORIDE 5 MG TAB XL 15 MG PO (08:58)
[2024-07-14] MEDS: 0.9 % SODIUM CHLORIDE 250 ML 10 ML IV (08:58)
[2024-07-14] MEDS: PREGABALIN 100 MG CAPSULE PO ×2 (08:58→21:23)
[2024-07-14] MEDS: DOCUSATE SODIUM 100 MG CAPSULE PO ×2 (08:58→21:23)
[2024-07-14] MEDS: OXYCODONE HCL 5 MG TABLET PO ×2 (08:58→15:17)
[2024-07-14] MEDS: MELOXICAM 7.5 MG TABLET PO (08:58)
[2024-07-14] MEDS: DULOXETINE HCL 60 MG CAPSULE.DR PO (08:58)
[2024-07-14] MEDS: CEFTRIAXONE 1,000 MG in 0.9 % SODIUM CHLORIDE 50 ML 100 MG IV (08:58)
--- NOTE | 2024-07-14 10:30 | PT.DAILY ---
Physical Therapy Daily Note PT Daily Note/Assess Start: 07/14/24 10:15 Freq: Status: Active Protocol: Document 07/14/24 10:15 [id number] (Rec: 07/14/24 10:29 [id number]) Physical Therapy Daily Note/Assessment Time In/Time Out Time In 08:28 Time Out 08:50 Pain In Pain Level 5 Pain Out Pain Level 4 Subjective Subjective Patient received supine with HOB elevated. Patient agreeable to participate with physical therapy. States they but a boot on her foot last night. Patient states pain is to the R leg. Patient states she is soiled. Therapeutic Exercise Time Therapeutic Exercise Minutes (minutes) 8 Therapeutic Exercise Units 1 Therapeutic Exercise Treatment Therapeutic Exercise Treatment Supine ISSA LE ther ex: AAROM SLR, hip ABD x10. ISSA LE heel slides with MOD A+1 and VC's to engage muscles to participate x5. Patient verbalizes increase pain with ISSA knee flexion. Unable to achieve 40 degrees of flexion. Seated R Knee LAQ x8 reps. No C/O of knee pain while performing extension or flexion while seated. Therapeutic Activity Time Therapeutic Activity Minutes (minutes) 14 Therapeutic Activity Units 1 Therapeutic Activity Treatment Bed Mobility Ability Moderate Assist,1 Person Assist Therapeutic Activity Comments Bed mobility: worked on log rolling 3x to R/L to change soiled undergarment, utilizes bed rail and is MOD A to complete turning onto side. Transfer: supine to R side with bed rail and MOD A+1. MOD to MAX +1 to scoot to EOB. Patient able to sit EOB with 1 UE support and no LOB. Transfer: sit>FWW is MOD A+2 with verbal cues to push up and lock out L knee for safety and stability. Patient side stepped to R @ ~2 feet with FWW walker and MIN A +2, VC's to crop picker R foot and advance to the R side. Patient requested to sit EOB to eat breakfast, patient left in care of nursing staff. CBWR. Total Physical Therapy Time Total Therapy Minutes 22 Total Physical Therapy Units 2 Summary Daily Note Summary Patient demonstrates fear of bending ISSA knee during log rolling and heel slides in supine and verbalizes pain with AAROM. When seated EOB, patient is able to flex ISSA knees without verbalizations of pain. Patient would benefit from SNF to address weakness and functional deficit with mobility.
[2024-07-14 11:30] VITALS: O2SAT 91
[2024-07-14 14:10] VITALS: BP 93/61; PULSE 95; TEMP 36.6; O2SAT 95
--- NOTE | 2024-07-14 15:08 | PM.PN ---
Progress Note: Subjective Subjective Interval history: Patient stable this am. Continues to have pain in right leg but tolerable with medication. Continues to have difficulty with ambulation and transfers. Normal appetite and no emesis or diarrhea. No chest pain or palpitations. No SOB or cough. Afebrile. Exam Constitutional Vital Signs, click to edit/add: Last Vital Signs Temp 97.8 F 07/14/24 14:10 Pulse 95 H 07/14/24 14:10 Resp 18 07/14/24 14:10 BP 93/61 07/14/24 14:10 Pulse Ox 95 07/14/24 14:10 O2 Del Method Room Air 07/14/24 14:10 Documenting provider has reviewed patient's vital signs: yes Common normals: no apparent distress, oriented x3 and alert HENMT Common normals: normocephalic Eye Common normals: PERRL and EOMs intact bilaterally Respiratory Common normals: normal respiratory effort and clear to auscultation bilaterally Cardio Common normals: regular rate, regular rhythm, no gallops, no murmurs and no rub GI Common normals: Normal to inspection, nondistended, normoactive bowel sounds present and non-tender Extremity Common normals: no pedal edema Progress Note: Objective Labs Labs: Short CBC 07/14/24 Range/Units 05:50 WBC 7.1 (4.0-11.0) 10^3/uL Hgb 11.4 L (12.0-16.0) g/dL Hct 34.9 L (36.0-48.0) % Plt Count 276 (150-450) 10^3/uL BMP 07/14/24 05:50 Sodium 136 Potassium 4.1 Chloride 100 Carbon Dioxide 28.5 BUN 18.0 Creatinine 0.68 Glucose 80 Calcium 8.7 Liver Function 07/14/24 Range/Units 05:50 Total Bilirubin 0.3 (0.2-1.0) mg/dL AST 8 L (15-37) U/L ALT <6 L (14-59) U/L Alkaline Phosphatase 65 (46-116) U/L Albumin 2.0 L (3.4-5.0) g/dL Progress Note: A&P Assessment and Plan (1) Fall: Qualifiers: Encounter type: subsequent encounter Qualified Code(s): W19.XXXD - Unspecified fall, subsequent encounter (2) UTI (urinary tract infection): Qualifiers: Urinary tract infection type: acute cystitis Hematuria presence: without hematuria Qualified Code(s): N30.00 - Acute cystitis without hematuria (3) Nondisplaced fracture of right fibula: Qualifiers: Encounter type: subsequent encounter Fibula location: distal physis (incl. Salter-Sheth) Fracture healing: with routine healing Qualified Code(s): S89.301D - Unspecified physeal fracture of lower end of right fibula, subsequent encounter for fracture with routine healing (4) Ambulatory dysfunction: (5) Multiple sclerosis: (6) Seizure disorder: Plan Patient stable and continue antibiotics. Urine culture pending. Pain tolerable with medication. Continue PT. Awaiting insurance approval for SNF. Urinary Catheter Management Urinary Catheter Management Straight: Cath placed during this visit: yes Urethral indwelling: Yes Reason for continuing: other continuation reason Insertion date: 07/12/24 Insertion time: 14:47
[2024-07-14] MEDS: ACETAMINOPHEN 325 MG TABLET 650 MG PO (15:17)
[2024-07-14] MEDS: ENOXAPARIN SODIUM 40 MG/0.4 ML SYRINGE SUBQ (17:21)
[2024-07-14 19:33] VITALS: O2SAT 94
[2024-07-14 19:46] VITALS: BP 119/64; PULSE 94; TEMP 36.6; O2SAT 93
[2024-07-14] MEDS: OXcarbazepine 300 MG TABLET 450 MG PO (21:23)
[2024-07-15 03:53] VITALS: O2SAT 91
[2024-07-15 04:31] VITALS: BP 110/69; PULSE 86; TEMP 36.4; O2SAT 91
[2024-07-15] MEDS: DIVALPROEX SODIUM 250 MG TABLET.DR PO ×4 (05:15→21:03)
[2024-07-15 06:36] LABS: Basophils Percent Auto 0.6 % (0.2-2.0); Eosinophils Absolute Auto 0.1 10^3/uL (0.0-0.7); Eosinophils Percent Auto 1.8 % (0.9-7.0); Hematocrit 34.7 % (36.0-48.0); Hemoglobin 11.2 g/dL (12.0-16.0); Immature Granulocytes Abs Auto 0.01 10^3/uL (0.00-0.03); Immature Granulocytes Pct Auto 0.1 % (0.0-0.5); Lymphocytes Absolute Auto 1.7 10^3/uL (1.2-3.8); Lymphocytes Percent Auto 24.5 % (20.5-60.0); Mean Corpuscular HGB Conc 32.3 g/dL (29.9-35.2); Mean Corpuscular Hemoglobin 30.7 pg (26.7-34.0); Mean Corpuscular Volume 95.1 fL (81.0-99.0); Mean Platelet Volume 10.1 fL (9.5-13.5); Monocytes Percent Auto 14.5 % (1.7-12.0); Neutrophils Percent Auto 58.5 % (43.0-75.0); Platelet Count 276 10^3/uL (150-450); Red Blood Count 3.65 10^6/uL (4.20-5.40); Red Cell Distribution Width 13.5 % (11.0-15.0); White Blood Count 6.8 10^3/uL (4.0-11.0)
[2024-07-15 06:53] LABS: Alanine Aminotransferase <6 U/L (14-59); Albumin Globulin Ratio 0.6; Albumin Level 2.1 g/dL (3.4-5.0); Alkaline Phosphatase 65 U/L (46-116); Anion Gap 7.9; Aspartate Amino Transferase <5 U/L (15-37); BUN Creatinine Ratio 18.3; Bilirubin Total 0.3 mg/dL (0.2-1.0); Calcium 8.8 mg/dL (8.5-10.1); Carbon Dioxide 30.3 mmol/L (21.0-32.0); Chloride 99 mmol/L (98-107); Estimated GFR (African America >60 (>=60 mL/min/1.73m^2); Estimated GFR (Non-African Ame >60 (>=60 mL/min/1.73m^2); Globulin 3.5 g/dL; Glucose 86 mg/dL (74-106); Potassium 4.2 mmol/L (3.5-5.1); Sodium 133 mmol/L (136-145); Total Protein 5.6 g/dL (6.4-8.2)
[2024-07-15] MEDS: PREGABALIN 100 MG CAPSULE PO ×2 (08:56→21:03)
[2024-07-15] MEDS: CEFTRIAXONE 1,000 MG in 0.9 % SODIUM CHLORIDE 50 ML 100 MG IV (08:56)
[2024-07-15] MEDS: DOCUSATE SODIUM 100 MG CAPSULE PO ×2 (08:56→21:03)
[2024-07-15] MEDS: OXYCODONE HCL 5 MG TABLET PO ×2 (08:56→15:51)
[2024-07-15] MEDS: DULOXETINE HCL 60 MG CAPSULE.DR PO (08:56)
[2024-07-15] MEDS: MELOXICAM 7.5 MG TABLET PO (08:56)
[2024-07-15] MEDS: OXYBUTYNIN CHLORIDE 5 MG TAB XL 15 MG PO (08:56)
[2024-07-15 11:56] VITALS: O2SAT 94
[2024-07-15 12:46] VITALS: BP 121/76; PULSE 90; TEMP 36.4; O2SAT 91
--- NOTE | 2024-07-15 14:34 | PM.PN ---
Progress Note: Subjective Subjective Interval history: Patient stable this am. Pain improved in right leg and tolerable with medication. Continues to have difficulty with ambulation and transfers. Normal appetite and no emesis or diarrhea. No chest pain or palpitations. No SOB or cough. Afebrile. Exam Constitutional Vital Signs, click to edit/add: Last Vital Signs Temp 97.6 F 07/15/24 12:46 Pulse 90 07/15/24 12:46 Resp 18 07/15/24 12:46 BP 121/76 07/15/24 12:46 Pulse Ox 91 L 07/15/24 12:46 O2 Del Method Room Air 07/15/24 12:46 Documenting provider has reviewed patient's vital signs: yes Common normals: no apparent distress, oriented x3 and alert HENMT Common normals: normocephalic Eye Common normals: PERRL and EOMs intact bilaterally Respiratory Common normals: normal respiratory effort and clear to auscultation bilaterally Cardio Common normals: regular rate, regular rhythm, no gallops, no murmurs and no rub GI Common normals: Normal to inspection, nondistended, normoactive bowel sounds present and non-tender Extremity Common normals: no pedal edema Progress Note: Objective Labs Labs: Short CBC 07/15/24 Range/Units 06:24 WBC 6.8 (4.0-11.0) 10^3/uL Hgb 11.2 L (12.0-16.0) g/dL Hct 34.7 L (36.0-48.0) % Plt Count 276 (150-450) 10^3/uL BMP 07/15/24 06:24 Sodium 133 L Potassium 4.2 Chloride 99 Carbon Dioxide 30.3 BUN 13.0 Creatinine 0.71 Glucose 86 Calcium 8.8 Liver Function 07/15/24 Range/Units 06:24 Total Bilirubin 0.3 (0.2-1.0) mg/dL AST <5 L (15-37) U/L ALT <6 L (14-59) U/L Alkaline Phosphatase 65 (46-116) U/L Albumin 2.1 L (3.4-5.0) g/dL Progress Note: A&P Assessment and Plan (1) Fall: Qualifiers: Encounter type: subsequent encounter Qualified Code(s): W19.XXXD - Unspecified fall, subsequent encounter (2) UTI (urinary tract infection): Qualifiers: Urinary tract infection type: acute cystitis Hematuria presence: without hematuria Qualified Code(s): N30.00 - Acute cystitis without hematuria (3) Nondisplaced fracture of right fibula: Qualifiers: Encounter type: subsequent encounter Fibula location: distal physis (incl. Salter-Sheth) Fracture healing: with routine healing Qualified Code(s): S89.301D - Unspecified physeal fracture of lower end of right fibula, subsequent encounter for fracture with routine healing (4) Ambulatory dysfunction: (5) Multiple sclerosis: (6) Seizure disorder: Plan Patient stable. Urine culture pending and continue antibiotics. Continue PT. Pain controlled. Awaiting insurance approval for SNF. Urinary Catheter Management Urinary Catheter Management Straight: Cath placed during this visit: yes Urethral indwelling: Yes Reason for continuing: prolonged immobilization Insertion date: 07/12/24 Insertion time: 14:47
[2024-07-15] MEDS: ENOXAPARIN SODIUM 40 MG/0.4 ML SYRINGE SUBQ (17:30)
[2024-07-15 19:42] VITALS: O2SAT 92
[2024-07-15 19:46] VITALS: BP 102/72; PULSE 85; TEMP 36.7; O2SAT 92
[2024-07-15] MEDS: OXcarbazepine 300 MG TABLET 450 MG PO (21:02)
[2024-07-16 03:19] VITALS: BP 128/72; PULSE 92; TEMP 36.8
[2024-07-16] MEDS: DIVALPROEX SODIUM 250 MG TABLET.DR PO ×3 (05:40→17:15)
[2024-07-16 05:55] LABS: Basophils Percent Auto 0.5 % (0.2-2.0); Eosinophils Absolute Auto 0.1 10^3/uL (0.0-0.7); Eosinophils Percent Auto 1.6 % (0.9-7.0); Hematocrit 36.5 % (36.0-48.0); Immature Granulocytes Abs Auto 0.01 10^3/uL (0.00-0.03); Immature Granulocytes Pct Auto 0.2 % (0.0-0.5); Lymphocytes Absolute Auto 1.6 10^3/uL (1.2-3.8); Lymphocytes Percent Auto 26.5 % (20.5-60.0); Mean Corpuscular HGB Conc 32.9 g/dL (29.9-35.2); Mean Corpuscular Hemoglobin 31.3 pg (26.7-34.0); Mean Corpuscular Volume 95.3 fL (81.0-99.0); Mean Platelet Volume 10.2 fL (9.5-13.5); Monocytes Absolute Auto 0.8 10^3/uL (0.3-0.8); Monocytes Percent Auto 12.7 % (1.7-12.0); Neutrophils Absolute Auto 3.6 10^3/uL (1.4-6.5); Neutrophils Percent Auto 58.5 % (43.0-75.0); Platelet Count 296 10^3/uL (150-450); Red Blood Count 3.83 10^6/uL (4.20-5.40); Red Cell Distribution Width 13.7 % (11.0-15.0); White Blood Count 6.1 10^3/uL (4.0-11.0)
[2024-07-16 06:13] LABS: Alanine Aminotransferase 8 U/L (14-59); Albumin Globulin Ratio 0.6; Albumin Level 2.2 g/dL (3.4-5.0); Alkaline Phosphatase 71 U/L (46-116); Anion Gap 11.9; Aspartate Amino Transferase 10 U/L (15-37); BUN Creatinine Ratio 12.1; Bilirubin Total 0.4 mg/dL (0.2-1.0); Carbon Dioxide 28.3 mmol/L (21.0-32.0); Chloride 99 mmol/L (98-107); Estimated GFR (African America >60 (>=60 mL/min/1.73m^2); Estimated GFR (Non-African Ame >60 (>=60 mL/min/1.73m^2); Globulin 3.7 g/dL; Glucose 85 mg/dL (74-106); Potassium 4.2 mmol/L (3.5-5.1); Sodium 135 mmol/L (136-145); Total Protein 5.9 g/dL (6.4-8.2)
[2024-07-16 08:11] VITALS: BP 112/68; PULSE 84; TEMP 36.8; O2SAT 92
[2024-07-16] MEDS: 0.9 % SODIUM CHLORIDE 250 ML 10 ML IV (08:21)
[2024-07-16] MEDS: OXYCODONE HCL 5 MG TABLET PO ×2 (08:22→13:52)
[2024-07-16] MEDS: CEFTRIAXONE 1,000 MG in 0.9 % SODIUM CHLORIDE 50 ML 100 MG IV (08:22)
[2024-07-16] MEDS: MELOXICAM 7.5 MG TABLET PO (08:22)
[2024-07-16] MEDS: DOCUSATE SODIUM 100 MG CAPSULE PO (08:22)
[2024-07-16] MEDS: DULOXETINE HCL 60 MG CAPSULE.DR PO (08:22)
[2024-07-16] MEDS: OXYBUTYNIN CHLORIDE 5 MG TAB XL 15 MG PO (08:22)
[2024-07-16] MEDS: PREGABALIN 100 MG CAPSULE PO (08:22)
--- NOTE | 2024-07-16 09:53 | CM.NOTE ---
Rounds made with Dr. Guzman, pt will discharge to [place] for skilled therapy when medically stable for discharge.
--- NOTE | 2024-07-16 10:57 | REH.PTDLY ---
Physical Therapy Daily Note PT Daily Note/Assess Start: 07/14/24 10:15 Freq: Status: Active Protocol: Document 07/16/24 10:00 SEBASTIÁN (Rec: 07/16/24 10:57 [id number] Physical Therapy Daily Note/Assessment Time In 09:45 Time Out 10:00 Subjective Pt in bed upon arrival. Still unsure of WB status of R LE after checking with nursing so treating it as NWB until Dr. Aguirre consults. Pt is wearing a boot. Therapeutic Exercise Minutes (minutes) 8 Therapeutic Exercise Units 1 Therapeutic Exercise Treatment Instructed in B LE supine exs 10x ea requiring AA with heel slides and hip abd slides on B LEs. AP only on L, QS with B LEs. instructed in seated marching and LAQ 10x ea with minimal range noted at knee with LAQ even after cuing. Therapeutic Activity Minutes (minutes) 7 Therapeutic Activity Units 0 Therapeutic Activity Comments Supine to sit transfers with Mod-Max Ax1 with cues given. Pt reports she feels fine until she goes to do something and then she realizes how weak she is. Pt has good seated balance bedside with no support. After sitting for 5 mins pt returns to bed, requires Mod A from sit to supine. Max A x2 to boost pt in bed. Cues with rolling side to side with pt doing better rolling to the R opposed to the L. Total Therapy Minutes 15 Total Physical Therapy Units 1 Daily Note Summary Pt still requires heavy assist with supine to and from sit transfers. Limited activity as this time as pt is NWB on R until podiatry consult and is unable to stand to maintain NWB due to weakness. Pt will need to go to skilled rehab as she is unable to care for herself at this time due to weakness.
[2024-07-16 11:14] VITALS: O2SAT 92
--- NOTE | 2024-07-16 11:58 | SWNOTE1 ---
CELSO spoke to Adeline at [facility], no precert approval yet. CELSO sent updates to Adeline at [facility]. Updates included PT/OT from weekend and today, labs, vitals, nursing notes, physician notes, and med list.
[2024-07-16 13:26] VITALS: BP 126/73; PULSE 100; TEMP 36.6; O2SAT 92
--- NOTE | 2024-07-16 15:39 | SWNOTE1 ---
Pt is approved to go to [place]. Dr. Guzman has a message out to Dr. Aguirre to check on pt's weight bearing status.
--- NOTE | 2024-07-16 16:21 | SWNOTE1 ---
Dr. Guzman messaged SW and he spoke to Dr. Moreno and per Dr Moreno pt can bear weight with CAM boot. Dr. Guzman will be discharge pt and would like [facility] to set up follow up apt with . CELSO requested that doctor notified nursing as well. SW to work on discharge.
--- NOTE | 2024-07-16 16:40 | SWNOTE1 ---
C[facility] set up [facility] for 6:00. CELSO spoke to pt and her mother does not have a phone to notify her. Since pt has not been up and out of bed since being here, felt it was safest to go by stretcher. Pt is going to [facility]. CELSO notified Ja at [place]. CELSO took packet to floor and requested nursing to fax over ut med rec.
[2024-07-16] MEDS: ENOXAPARIN SODIUM 40 MG/0.4 ML SYRINGE SUBQ (17:15)
--- NOTE | 2024-07-16 17:20 | PM.DS1 ---
DS: Providers Provider Date of admission: 07/12/24 15:38 Primary care physician: INDER ROBERSON Admitting clinician: Shaikh Megan Attending physician on admission: Shaikh Megan Consults: 07/12/24 15:10 Occupational Therapy Eval and Treat Routine Reason for consultation: Ambulatory dysfunction/weakness Physical Therapy Eval and Treat Routine Reason for consultation: Ambulatory dysfunction/weakness 07/13/24 13:07 Consult to Podiatry Routine Consulting Provider: Bubba Aguirre Reason for consultation: fibular fx Attending physician on discharge: Shaikh Megan Discharging clinician: Shaikh Megan Anticipated date of discharge: 07/16/24 DS: Diagnosis Discharge Diagnosis (1) Fall: Qualifiers: Encounter type: subsequent encounter Qualified Code(s): W19.XXXD - Unspecified fall, subsequent encounter (2) UTI (urinary tract infection): Qualifiers: Urinary tract infection type: acute cystitis Hematuria presence: without hematuria Qualified Code(s): N30.00 - Acute cystitis without hematuria (3) Nondisplaced fracture of right fibula: Qualifiers: Encounter type: subsequent encounter Fibula location: distal physis (incl. 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 Patient was found to have right distal fibular fracture and was discharged home with nonweightbearing and follow-up with orthopedic as outpatient. She presented after she was unable to get up from another fall at home. She was brought into ER to ensure she did not have any significant traumatic injury. Her workup was unremarkable and there was no acute/new fracture or significant injury. However because of pain, right fibular fracture and left lower extremity weakness, she is unable to ambulate at home. Patient also reported dysuria, polyuria and was found to have UTI on urinalysis. Patient also appeared clinically dry on arrival and was treated with IV hydration. Patient was evaluated by PT/OT and was recommended to have acute rehab for her distal fibular fx. I discussed her XR findings with Orthopedic surgery. Patient can bear weight and ambulate with CAM boot on her RLE. She will also need PO Cefdinir to finish her treatment course for UTI Status at Discharge Functional status at discharge: uses cane/walker Overall status at discharge: patient is progressing back to baseline Time Spent with Patient Time attestation: Total time spent providing and/or coordinating discharge services: Time spent: greater than 30 minutes Exam Constitutional Vital Signs, click to edit/add: Last Vital Signs Temp 97.9 F 07/16/24 13:26 Pulse 100 H 07/16/24 13:26 Resp 20 07/16/24 13:26 BP 126/73 07/16/24 13:26 Pulse Ox 92 L 07/16/24 13:26 O2 Del Method Room Air 07/16/24 13:26 Documenting provider has reviewed patient's vital signs: yes Common normals: no apparent distress and oriented x3 General appearance: cooperative Respiratory Common normals: normal respiratory effort and clear to auscultation bilaterally Effort & inspection: able to speak in complete sentences Auscultation: clear to auscultation bilaterally Cardio Common normals: regular rate, S1 normal heart sound and S2 normal heart sound Rate: regular rate Heart sounds: S1 normal and S2 normal GI Common normals: Normal to inspection, nondistended, normoactive bowel sounds present, soft to palpation, non-tender and no hepatosplenomegaly Palpation: soft and no hepatosplenomegaly Extremity Other: Right LE is in immobilized for fibular fx. Neuro Common normals: oriented x3 and moves all extremities Sensorium/orientation: awake, alert, oriented to person, oriented to place and oriented to time Other: LLE power is 2-3/5. LUE is 3-4/5 Psych Common normals: mental status grossly normal, thought process normal, denies hallucinations, denies homicidal ideation and denies suicidal ideation DS: Data Data Completed and Pending Labs on day of discharge: Labs from last 24 hours 07/16/24 05:28 WBC 6.1 RBC 3.83 L Hgb 12.0 Hct 36.5 MCV 95.3 MCH 31.3 MCHC 32.9 RDW 13.7 Plt Count 296 MPV 10.2 Neut % (Auto) 58.5 Lymph % (Auto) 26.5 Stone % (Auto) 12.7 H Eos % (Auto) 1.6 Baso % (Auto) 0.5 Neut # (Auto) 3.6 Lymph # (Auto) 1.6 Stone # (Auto) 0.8 Eos # (Auto) 0.1 Baso # (Auto) 0.0 Abs Immat Gran (auto) 0.01 Imm/Tot Granulo (auto) 0.2 Sodium 135 L Potassium 4.2 Chloride 99 Carbon Dioxide 28.3 Anion Gap 11.9 BUN 8.0 Creatinine 0.66 Est GFR ( Amer) >60 Est GFR (Non-Af Amer) >60 BUN/Creatinine Ratio 12.1 Glucose 85 Calcium 9.0 Total Bilirubin 0.4 AST 10 L ALT 8 L Alkaline Phosphatase 71 Total Protein 5.9 L Albumin 2.2 L Globulin 3.7 Albumin/Globulin Ratio 0.6 Discharge Plan Discharge Disposition: Xfer [facility] Discharge Medications: New cefdinir 300 mg capsule 300 mg PO BID Qty: 10 0RF Continued duloxetine 20 mg capsule,delayed release(DR/EC) 20 mg PO BID duloxetine 60 mg capsule,delayed release(DR/EC) 60 mg PO BEDTIME meloxicam 7.5 mg tablet 7.5 mg PO DAILY oxcarbazepine 300 mg tablet 600 mg PO BEDTIME oxybutynin chloride 15 mg tablet extended release 24hr 15 mg PO DAILY alprazolam 0.5 mg tablet 0.5 mg PO TID PRN (Reason: anxiety) divalproex 250 mg tablet extended release 24 hr 250 mg PO QID pregabalin 100 mg capsule 100 mg PO BID Print Language: Italian Sausage Maker/Supervisor Pipelines Instructions: Discharge to [facility] skilled Forms: Portal Instructions Follow Up Appointments: please follow up with dr tariq within one week [phone] F/u with PCP in one week
--- NOTE | 2024-07-16 18:07 | PC.NURSE ---
Report called to Erick Bui
== END 2024-07-16 18:30 ==
LOC: ER 15:18 → MS 15:52
PROVIDERS: Internal Medicine; Physician Assistant; Admitting Provider Family Medicine; Emergency Provider Emergency Medicine; PCP Nurse Practitioner; Visit Provider Family Medicine
DX: N30.00 Acute cystitis without hematuria (principal); S89.301D Unspecified physeal fracture of lower end of right fibula, subsequent encounter for fracture with routine healing; G40.909 Epilepsy, unspecified, not intractable, without status epilepticus; F33.42 Major depressive disorder, recurrent, in full remission; G35 Multiple sclerosis; Z99.3 Dependence on wheelchair; R26.2 Difficulty in walking, not elsewhere classified; Z87.820 Personal history of traumatic brain injury; R53.1 Weakness; Z91.81 History of falling; W19.XXXD Unspecified fall, subsequent encounter; Z79.899 Other long term (current) drug therapy; Z23 Encounter for immunization
CPT/HCPCS: 36415; 72192; 73552; 73590; 80053; 81001; 83605; 85025; 87086; 90674; 90732; 94761; 96361; 96365; 96366; 96372; 97110; 97161; 97165; 97530; 97535; 99285; G0008; G0009; G0378; J0696; J1650

== ENCOUNTER 2024-07-30 07:50 | Outpatient (OUT) | payer MEDICARE, SELFPAY ==
--- NOTE | 2024-07-30 | XR_ITS ---
The [address] [address] Patient Name: CARINE WATSON MRN: [id number] date: 1960 Sex: F Assigned Patient Location: Current Patient Location: Accession/Order Number: [id number] Exam Date: 07/30/2024 08:00 Report Date: 08/01/2024 05:31 At the request of: SUN BAIRES Procedure: XR ankle RT min 3V PROCEDURE: XR ankle RT min 3V HISTORY: RIGHT ANKLE PAIN COMPARISON: XR tibia fibula bilateral 07/12/2024 FINDINGS: BONES:Nondisplaced fracture of the distal fibula extending cephalad from the level of the ankle joint. Unremarkable ankle joint. SOFT TISSUES:Mild soft tissue swelling surrounding the ankle. EFFUSION:None visible. OTHER: Negative. XR/XR ankle RT min 3V IMPRESSION: 1. Stable nondisplaced distal fibular fracture with ongoing bone healing. Electronically authenticated by: SUN CANSECO Date: 08/01/2024 05:31
== END 2024-07-30 07:51 | disposition home or self-care (01) ==
LOC: EC 07:50
PROVIDERS: PCP Nurse Practitioner; Visit Provider Orthopaedic Surgery
DX: M25.571 Pain in right ankle and joints of right foot (principal); S89.301D Unspecified physeal fracture of lower end of right fibula, subsequent encounter for fracture with routine healing
CPT/HCPCS: 73610

== ENCOUNTER 2024-08-27 08:37 | Outpatient (OUT) | payer MEDICARE, SELFPAY ==
--- NOTE | 2024-08-27 | XR_ITS ---
The [address] [address] Patient Name: CARINE WATSON MRN: [id number] date: 1960 Sex: F Assigned Patient Location: Current Patient Location: Accession/Order Number: [id number] Exam Date: 08/27/2024 08:48 Report Date: 08/29/2024 06:38 At the request of: SUN BAIRES Procedure: XR ankle RT min 3V PROCEDURE: XR ankle RT min 3V HISTORY: RIGHT ANKLE PAIN ; follow-up distal fibular fracture COMPARISON: XR ankle right 07/30/2024 FINDINGS: BONES:Nondisplaced oblique fracture of distal fibula/lateral malleolus with moderate density at fracture line suggesting partial bone healing. SOFT TISSUES:No visible soft tissue swelling. EFFUSION:None visible. OTHER: Negative. XR/XR ankle RT min 3V IMPRESSION: 1 stable nondisplaced fracture with ongoing bone healing. Electronically authenticated by: SUN CANSECO Date: 08/29/2024 06:38
== END 2024-08-27 08:38 | disposition home or self-care (01) ==
LOC: EC 08:37
PROVIDERS: PCP Nurse Practitioner; Visit Provider Orthopaedic Surgery
DX: S82.831D Other fracture of upper and lower end of right fibula, subsequent encounter for closed fracture with routine healing (principal)
CPT/HCPCS: 73610

== ENCOUNTER 2024-09-13 15:13 | Emergency (ER) | payer MEDICARE, SELFPAY ==
[2024-09-13 15:18] VITALS: BP 127/83; PULSE 93; TEMP 36.4; O2SAT 97; BMI 29.5
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
--- NOTE | 2024-09-13 15:22 | ECG_ITS ---
The [facility] Test Date: 2024-09-13 Pat Name: CARINE WATSON Department: Room: - Gender: Female Assistant Clinical Director: : 1960 Requested By: [id number] Order Number: [id number] Reading MD: TEO NGUYEN Measurements Intervals [place] Rate: 90 P: 30 DE: 156 QRS: 6 QRSD: 70 T: -10 QT: 340 QTc: 388 Interpretive Statements 1100 Sinus rhythm 8102 Low QRS voltage in chest leads 9140 abnormal rhythm ECG No previous ECG available for comparison Electronically Signed On 09-15-2024 8:49:36 EST by TEO NGUYEN
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
[2024-09-13 15:37] LABS: Basophils Percent Auto 0.3 % (0.2-2.0); Eosinophils Absolute Auto 0.1 10^3/uL (0.0-0.7); Eosinophils Percent Auto 0.8 % (0.9-7.0); Hematocrit 38.2 % (36.0-48.0); Hemoglobin 12.8 g/dL (12.0-16.0); Immature Granulocytes Abs Auto 0.01 10^3/uL (0.00-0.03); Immature Granulocytes Pct Auto 0.1 % (0.0-0.5); Lymphocytes Absolute Auto 1.2 10^3/uL (1.2-3.8); Lymphocytes Percent Auto 17.2 % (20.5-60.0); Mean Corpuscular HGB Conc 33.5 g/dL (29.9-35.2); Mean Corpuscular Hemoglobin 32.8 pg (26.7-34.0); Mean Corpuscular Volume 97.9 fL (81.0-99.0); Mean Platelet Volume 10.4 fL (9.5-13.5); Monocytes Percent Auto 13.6 % (1.7-12.0); Neutrophils Absolute Auto 4.9 10^3/uL (1.4-6.5); Platelet Count 298 10^3/uL (150-450); Red Cell Distribution Width 15.2 % (11.0-15.0); White Blood Count 7.2 10^3/uL (4.0-11.0)
[2024-09-13 15:45] LABS: Anion Gap 10.6; BUN Creatinine Ratio 24.7; Calcium 9.3 mg/dL (8.5-10.1); Chloride 104 mmol/L (98-107); Estimated GFR (African America >60 (>=60 mL/min/1.73m^2); Estimated GFR (Non-African Ame >60 (>=60 mL/min/1.73m^2); Glucose 84 mg/dL (74-106); Potassium 3.6 mmol/L (3.5-5.1); Sodium 143 mmol/L (136-145)
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
== END 2024-09-13 17:44 | disposition home or self-care (01) ==
PROVIDERS: Emergency Provider Emergency Medicine; PCP Nurse Practitioner
DX: R53.1 Weakness (principal); Z60.9 Problem related to social environment, unspecified
CPT/HCPCS: 36415; 73610; 80048; 81001; 85025; 93005; 99285

== ENCOUNTER 2024-09-23 00:48 | Emergency (ER) | payer MEDICARE, SELFPAY ==
[2024-09-23 00:49] VITALS: BP 139/86; PULSE 102; TEMP 37.1; O2SAT 96; BMI 41.4
--- NOTE | 2024-09-23 01:06 | XR_ITS ---
The [place] [id number] Patient Name: CARINE WATSON MRN: [id number] date: 1960 Sex: F Assigned Patient Location: ER Current Patient Location: ER Accession/Order Number: [id number] Exam Date: 09/23/2024 01:20 Report Date: 09/23/2024 05:38 At the request of: SHREYA KEVIN Procedure: XR ankle LT min 3V PROCEDURE: XR ankle LT min 3V COMPARISON: 11/15/2023 HISTORY: fall FINDINGS: BONES:No fracture, acute abnormality, or significant arthropathy. SOFT TISSUES:Negative. No visible soft tissue swelling. EFFUSION:None visible. OTHER: Negative. XR/XR ankle LT min 3V IMPRESSION: No acute radiographic abnormality Electronically authenticated by: RUSSEL STREETER Date: 09/23/2024 05:38
--- NOTE | 2024-09-23 01:06 | XR_ITS ---
The [address] [address] Patient Name: CARINE WATSON MRN: [id number] date: 1960 Sex: F Assigned Patient Location: ER Current Patient Location: ER Accession/Order Number: [id number] Exam Date: 09/23/2024 01:20 Report Date: 09/23/2024 05:38 At the request of: SHREYA KEVIN Procedure: XR knee LT 3V PROCEDURE: XR knee LT 3V COMPARISON: 11/15/2023 HISTORY: fall FINDINGS: BONES:No acute fracture or dislocation. Moderate to severe tricompartmental osteoarthritis with joint space narrowing marginal osteophyte formation. Clinical indication SOFT TISSUES:Negative. No visible soft tissue swelling. EFFUSION:None visible. OTHER: Negative. XR/XR knee LT 3V IMPRESSION: Moderate to severe osteoarthritis Electronically authenticated by: RUSSEL STREETER Date: 09/23/2024 05:38
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
[2024-09-23] MEDS: TRAMADOL HCL 50 MG TABLET PO (03:01)
[2024-09-23 06:21] VITALS: BP 112/84; PULSE 116; O2SAT 96
[2024-09-23 07:53] VITALS: PULSE 84; O2SAT 94
== END 2024-09-23 07:54 | disposition home or self-care (01) ==
PROVIDERS: Emergency Provider Emergency Medicine; PCP Nurse Practitioner
DX: S80.02XA Contusion of left knee, initial encounter (principal); M25.572 Pain in left ankle and joints of left foot; W06.XXXA Fall from bed, initial encounter
CPT/HCPCS: 73562; 73610; 99283

== ENCOUNTER 2024-12-23 16:38 | Observation (INO) | payer MEDICARE, SELFPAY ==
[2024-12-23 16:44] VITALS: BP 93/64; PULSE 108; TEMP 36.9; O2SAT 95; BMI 44.8
--- NOTE | 2024-12-23 17:44 | ED_ITS ---
HPI - Weakness General Chief complaint: Weakness Stated complaint: WEAKNESSES Time Seen by Provider: 12/23/24 16:50 Source: patient Mode of arrival: ambulance Limitations: no limitations History of Present Illness HPI Narrative: The patient is coming to the ER after she called the EMS for left and apparently when they arrived to the scene they found that she slipped from her wheelchair and was not able to get up to the bed, the patient was so weak that the EMS brought her here because she is not able to do anything at home, she is a 64 years old who is her mom is 85 years old taking care of her and her mother is not able to take care of her anymore The patient cannot ambulate from the bed because she is so weak, she is denying any acute complaints at the moment, she mentioned that she had a ankle fracture and she was placed in a long-term facility called the [facility] but she did not like it there and she signed herself out on July 2024 The patient have home health care at home but they are not enough to help. Related Data Home Medications ?Medication ?Instructions ?Recorded ?Confirmed duloxetine 20 mg capsule,delayed 20 mg PO BID 11/15/23 07/12/24 release duloxetine 60 mg capsule,delayed 60 mg PO BEDTIME 11/15/23 07/12/24 release meloxicam 7.5 mg tablet 7.5 mg PO DAILY 11/15/23 07/12/24 oxcarbazepine 300 mg tablet 600 mg PO BEDTIME 11/15/23 07/12/24 oxybutynin chloride 15 mg 15 mg PO DAILY 11/15/23 07/12/24 tablet,extended release 24 hr alprazolam 0.5 mg tablet 0.5 mg PO TID PRN anxiety 07/12/24 07/12/24 divalproex 250 mg tablet,extended 250 mg PO QID 07/12/24 07/12/24 release 24 hr pregabalin 100 mg capsule 100 mg PO BID 07/12/24 07/12/24 Previous Rx's ?Medication ?Instructions ?Recorded cefdinir 300 mg capsule 300 mg PO BID #10 caps 07/16/24 Allergies Allergy/AdvReac Type Severity Reaction Status Date / Time latex Allergy Mild Hives Verified 12/23/24 16:43 Penicillins Allergy Mild Rash Verified 12/23/24 16:43 rofecoxib (From Vioxx) Allergy Mild Rash Verified 12/23/24 16:43 Review of Systems ROS Status of ROS 10 or more systems reviewed and unremark able except as noted in history and below [facility] Medical History (Updated 12/23/24 @ 18:37 by Leyda Hutchinson MD) Multiple sclerosis ?G35 - Multiple sclerosis (ICD-10) UTI (urinary tract infection) ?N39.0 - Urinary tract infection, site not specified (ICD-10) Ambulatory dysfunction ?R26.2 - Difficulty in walking, not elsewhere classified (ICD-10) Seizure disorder ?G40.909 - Epilepsy, unspecified, not intractable, without status epilepticus (ICD-10) Fall ?W19.XXXA - Unspecified fall, initial encounter (ICD-10) Nondisplaced fracture of right fibula ?S82.401A - Unspecified fracture of shaft of right fibula, initial encounter for closed fracture (ICD-10) Abrasion of face ?S00.81XA - Abrasion of other part of head, initial encounter (ICD-10) Fibula fracture ?S82.409A - Unspecified fracture of shaft of unspecified fibula, initial encounter for closed fracture (ICD-10) Lower extremity pain ?M79.606 - Pain in leg, unspecified (ICD-10) Back pain ?M54.9 - Dorsalgia, unspecified (ICD-10) Closed head injury ?S09.90XA - Unspecified injury of head, initial encounter (ICD-10) Contusion of face ?S00.83XA - Contusion of other part of head, initial encounter (ICD-10) Contusion of sacral region ?S30.0XXA - Contusion of lower back and pelvis, initial encounter (ICD-10) Fall ?W19.XXXA - Unspecified fall, initial encounter (ICD-10) H/O traumatic brain injury ?Z87.820 - Personal history of traumatic brain injury (ICD-10) Cat scratch fever ?A28.1 - Cat-scratch disease (ICD-10) Aneurysm ?I72.9 - Aneurysm of unspecified site (ICD-10) Arm fracture, left ?S42.302A - Unspecified fracture of shaft of humerus, left arm, initial encounter for closed fracture (ICD-10) Depression ?F32.A - Depression, unspecified (ICD-10) Anxiety ?F41.9 - Anxiety disorder, unspecified (ICD-10) DVT (deep venous thrombosis) ?I82.409 - Acute embolism and thrombosis of unspecified deep veins of unspecified lower extremity (ICD-10) Traumatic brain injury ?S06.9XAA - Unspecified intracranial injury with loss of consciousness status unknown, initial encounter (ICD-10) Surgical History (Updated 07/12/24 @ 16:16 by Romelia Gomez) Hx of tracheostomy ?Z98.890 - Other specified postprocedural states (ICD-10) Social History Smoking status: Never smoker Highest level of school completed/degree received: some college, no degree Little interest or pleasure in doing things: not at all Feeling down, depressed, or hopeless: not at all Exam Narrative Exam Narrative: Nurses notes and vital signs reviewed and patient is not hypoxic. General: Well-appearing and in no apparent distress. Skin: Warm, dry, no pallor noted. No rash. Head: Normocephalic, atraumatic. Neck: Supple, non-tender. Eye: Pupils are equal, round and EOMI. No scleral icterus. Ears, Nose, Mouth, and Throat: TM are clear, no nasal mucosal hypertrophy. Oral mucosa is moist, no posterior oropharynx erythema, uvula is mid-line Cardiovascular: Regular Rate and Rhythm without murmur, gallop or rub. Respiratory: No accessory muscle use or respiratory distress. Lungs are clear to auscultation, no wheezing, rales or rhonchi Chest Wall: no tenderness Back: No midline thoracic or lumbar vertebral tenderness. No CVA tenderness GI: Abdomen is soft, non-distended. Normal bowel sounds. No masses appreciated. No tenderness to palpation. No rebound, guarding, or rigidity noted. Neurological: A&O x4. No cranial nerve dysfunction observed. Chronic bilateral leg weakness noted and no acute findings Psychiatric: Cooperative and interactive. Normal mood and affect. Constitutional Vital Signs, click to edit/add: Last Vital Signs Temp 98.5 F 12/23/24 16:44 Pulse 108 H 12/23/24 16:44 Resp 20 12/23/24 16:44 BP 93/64 12/23/24 16:44 Pulse Ox 95 12/23/24 16:44 O2 Del Method Room Air 12/23/24 16:44 Course Vital Signs Vital signs: Vital Signs Temperature 98.5 F 12/23/24 16:44 Pulse Rate 108 H 12/23/24 16:44 Respiratory Rate 20 12/23/24 16:44 Blood Pressure 93/64 12/23/24 16:44 Pulse Oximetry 95 12/23/24 16:44 Oxygen Delivery Method Room Air 12/23/24 16:44 Temperature 98.5 F 12/23/24 16:44 Pulse Rate 108 H 12/23/24 16:44 Respiratory Rate 20 12/23/24 16:44 Blood Pressure 93/64 12/23/24 16:44 Pulse Oximetry 95 12/23/24 16:44 Oxygen Delivery Method Room Air 12/23/24 16:44 MDM - Weakness MDM Narrative Medical decision making narrative: The patient CBC and chemistry showed no acute pathology Urinalysis pending The patient has not been getting out of the bed at all because of the weakness, and that why she was not able to be helped by the EMS to get to the bed and brought to the ER Right now the patient does not have any safe discharge she have her 85 years old mother who take care of her at the bedside and both of them are agreeable that she has not been having enough care at home and her mother is not able to help her at home anymore. The patient case was discussed with Dr. Schmitz and the patient will be admitted under Dr. Melgar for further evaluation Lab Data Labs: Lab Results 12/23/24 Range/Units 17:15 WBC 9.4 (4.0-11.0) 10^3/uL RBC 4.01 L (4.20-5.40) 10^6/uL Hgb 13.1 (12.0-16.0) g/dL Hct 39.9 (36.0-48.0) % MCV 99.5 H (81.0-99.0) fL MCH 32.7 (26.7-34.0) pg MCHC 32.8 (29.9-35.2) g/dL RDW 14.4 (11.0-15.0) % Plt Count 318 (150-450) 10^3/uL MPV 10.5 (9.5-13.5) fL Neut % (Auto) 72.2 (43.0-75.0) % Lymph % (Auto) 14.9 L (20.5-60.0) % Cherry % (Auto) 11.3 (1.7-12.0) % Eos % (Auto) 1.0 (0.9-7.0) % Baso % (Auto) 0.2 (0.2-2.0) % Neut # (Auto) 6.8 H (1.4-6.5) 10^3/uL Lymph # (Auto) 1.4 (1.2-3.8) 10^3/uL Cherry # (Auto) 1.1 H (0.3-0.8) 10^3/uL Eos # (Auto) 0.1 (0.0-0.7) 10^3/uL Baso # (Auto) 0.0 (0.0-0.1) 10^3/uL Abs Immat Gran (auto) 0.04 H (0.00-0.03) 10^3/uL Imm/Tot Granulo (auto) 0.4 (0.0-0.5) % Sodium 138 (136-145) mmol/L Potassium 3.8 (3.5-5.1) mmol/L Chloride 100 (98-107) mmol/L Carbon Dioxide 31.1 (21.0-32.0) mmol/L Anion Gap 10.7 BUN 12.0 (7.0-18.0) mg/dL Creatinine 0.79 (0.55-1.02) mg/dL Est GFR ( Amer) >60 (>=60 mL/min/1.73m^2) Est GFR (Non-Af Amer) >60 (>=60 mL/min/1.73m^2) BUN/Creatinine Ratio 15.2 Glucose 121 H (74-106) mg/dL Calcium 9.5 (8.5-10.1) mg/dL Total Bilirubin 0.5 (0.2-1.0) mg/dL AST 11 L (15-37) U/L ALT <6 L (14-59) U/L Alkaline Phosphatase 78 (46-116) U/L Total Protein 6.9 (6.4-8.2) g/dL Albumin 2.8 L (3.4-5.0) g/dL Globulin 4.1 g/dL Albumin/Globulin Ratio 0.7 Discharge Plan Discharge Chief Complaint: Weakness Clinical Impression: Generalized weakness, Fall Patient Disposition: Admitted As Inpatient Time of Disposition Decision: 18:37
[2024-12-23 17:51] LABS: Basophils Percent Auto 0.2 % (0.2-2.0); Eosinophils Absolute Auto 0.1 10^3/uL (0.0-0.7); Hematocrit 39.9 % (36.0-48.0); Hemoglobin 13.1 g/dL (12.0-16.0); Immature Granulocytes Abs Auto 0.04 10^3/uL (0.00-0.03); Immature Granulocytes Pct Auto 0.4 % (0.0-0.5); Lymphocytes Absolute Auto 1.4 10^3/uL (1.2-3.8); Lymphocytes Percent Auto 14.9 % (20.5-60.0); Mean Corpuscular HGB Conc 32.8 g/dL (29.9-35.2); Mean Corpuscular Hemoglobin 32.7 pg (26.7-34.0); Mean Corpuscular Volume 99.5 fL (81.0-99.0); Mean Platelet Volume 10.5 fL (9.5-13.5); Monocytes Absolute Auto 1.1 10^3/uL (0.3-0.8); Monocytes Percent Auto 11.3 % (1.7-12.0); Neutrophils Absolute Auto 6.8 10^3/uL (1.4-6.5); Neutrophils Percent Auto 72.2 % (43.0-75.0); Platelet Count 318 10^3/uL (150-450); Red Blood Count 4.01 10^6/uL (4.20-5.40); Red Cell Distribution Width 14.4 % (11.0-15.0); White Blood Count 9.4 10^3/uL (4.0-11.0)
[2024-12-23 18:09] LABS: Alanine Aminotransferase <6 U/L (14-59); Albumin Globulin Ratio 0.7; Albumin Level 2.8 g/dL (3.4-5.0); Alkaline Phosphatase 78 U/L (46-116); Anion Gap 10.7; Aspartate Amino Transferase 11 U/L (15-37); BUN Creatinine Ratio 15.2; Bilirubin Total 0.5 mg/dL (0.2-1.0); Calcium 9.5 mg/dL (8.5-10.1); Carbon Dioxide 31.1 mmol/L (21.0-32.0); Chloride 100 mmol/L (98-107); Estimated GFR (African America >60 (>=60 mL/min/1.73m^2); Estimated GFR (Non-African Ame >60 (>=60 mL/min/1.73m^2); Globulin 4.1 g/dL; Glucose 121 mg/dL (74-106); Potassium 3.8 mmol/L (3.5-5.1); Sodium 138 mmol/L (136-145); Total Protein 6.9 g/dL (6.4-8.2)
[2024-12-23 18:37] VITALS: BP 109/74; PULSE 90; TEMP 36.4; O2SAT 94
[2024-12-23 20:00] VITALS: PULSE 90
[2024-12-23 20:05] VITALS: BMI 36.9
[2024-12-23 20:34] VITALS: O2SAT 95
[2024-12-23 21:16] LABS: Influenza Virus A Antigen Negative; Influenza Virus B Antigen Negative; Internal Control Within Normal Limits; SARS-CoV-2 Ag NEGATIVE (NEGATIVE)
[2024-12-23] MEDS: 0.9 % SODIUM CHLORIDE 1,000 ML 100 ML IV (21:25)
[2024-12-23 21:32] LABS: D Dimer 1.57 mg/L FEU (<=0.59)
[2024-12-23 21:39] LABS: Bilirubin Urine NEGATIVE (NEGATIVE); Blood Urine SMALL (NEGATIVE); Clarity Urine CLEAR (CLEAR); Color Urine LT. YELLOW (YELLOW); Glucose Urine UA NEGATIVE (NEGATIVE); Ketones Urine NEGATIVE (NEGATIVE); Leukocyte Esterase Urine LARGE (NEGATIVE); Nitrite Urine POSITIVE (NEGATIVE); Protein Urine NEGATIVE (NEG/TRACE); Specific Gravity Urine <=1.005 (1.005-1.025); Urobilinogen Urine 0.2 EU/dL (0.2-1.0); pH Urine 6.5 (5.0-9.0)
[2024-12-23 21:43] LABS: Urine Microscopic Indicated YES
[2024-12-23 21:46] LABS: Bacteria Urine MODERATE #/HPF (NONE SEEN); Cast Seen? NONE SEEN #/LPF (NONE SEEN); Crystals Seen? None Seen #/HPF (None Seen); Mucus Urine NONE SEEN (NONE SEEN); RBC Urine 0-2 #/HPF (0-2); Squamous Epithelial Cell Urine FEW #/LPF (NONE/RARE); Urine Culture Indicated YES-FRMC; WBC Urine 20-50 #/HPF (NONE SEEN)
[2024-12-23 22:00] VITALS: PULSE 80
[2024-12-23] MEDS: PREGABALIN 75 MG CAPSULE 150 MG PO (22:12)
[2024-12-23] MEDS: DULOXETINE HCL 60 MG CAPSULE.DR PO (22:13)
[2024-12-23] MEDS: TRAMADOL HCL 50 MG TABLET PO (22:13)
[2024-12-23] MEDS: DIVALPROEX SODIUM 250 MG TAB.ER.24H PO (22:13)
[2024-12-23] MEDS: OXcarbazepine 300 MG TABLET 600 MG PO (22:13)
[2024-12-23 23:52] VITALS: BP 96/63; PULSE 82; TEMP 36.8; O2SAT 90
[2024-12-24] VITALS (20 sets, daily range): BP systolic 92–118; BP diastolic 50–73; PULSE 74–95; TEMP 36.3–36.6; O2SAT 91–95
[2024-12-24] MEDS: CEFTRIAXONE 1,000 MG in 0.9 % SODIUM CHLORIDE 50 ML 100 MG IV (01:38)
[2024-12-24] MEDS: DIVALPROEX SODIUM 250 MG TAB.ER.24H PO ×4 (05:10→21:05)
[2024-12-24 06:11] LABS: Basophils Percent Auto 0.2 % (0.2-2.0); Eosinophils Absolute Auto 0.1 10^3/uL (0.0-0.7); Eosinophils Percent Auto 1.7 % (0.9-7.0); Hematocrit 39.6 % (36.0-48.0); Hemoglobin 13.3 g/dL (12.0-16.0); Immature Granulocytes Abs Auto 0.02 10^3/uL (0.00-0.03); Immature Granulocytes Pct Auto 0.2 % (0.0-0.5); Lymphocytes Absolute Auto 2.2 10^3/uL (1.2-3.8); Lymphocytes Percent Auto 26.4 % (20.5-60.0); Mean Corpuscular HGB Conc 33.6 g/dL (29.9-35.2); Mean Corpuscular Hemoglobin 33.4 pg (26.7-34.0); Mean Corpuscular Volume 99.5 fL (81.0-99.0); Mean Platelet Volume 10.1 fL (9.5-13.5); Monocytes Absolute Auto 1.1 10^3/uL (0.3-0.8); Monocytes Percent Auto 12.7 % (1.7-12.0); Neutrophils Percent Auto 58.8 % (43.0-75.0); Platelet Count 298 10^3/uL (150-450); Red Blood Count 3.98 10^6/uL (4.20-5.40); Red Cell Distribution Width 14.4 % (11.0-15.0); White Blood Count 8.4 10^3/uL (4.0-11.0)
[2024-12-24 06:29] LABS: Alanine Aminotransferase <6 U/L (14-59); Albumin Globulin Ratio 0.7; Albumin Level 2.7 g/dL (3.4-5.0); Alkaline Phosphatase 76 U/L (46-116); Anion Gap 10.3; Aspartate Amino Transferase 9 U/L (15-37); BUN Creatinine Ratio 13.3; Bilirubin Total 0.5 mg/dL (0.2-1.0); Calcium 9.5 mg/dL (8.5-10.1); Chloride 103 mmol/L (98-107); Estimated GFR (African America >60 (>=60 mL/min/1.73m^2); Estimated GFR (Non-African Ame >60 (>=60 mL/min/1.73m^2); Globulin 4.1 g/dL; Glucose 84 mg/dL (74-106); Magnesium 1.9 mg/dL (1.8-2.4); Potassium 4.3 mmol/L (3.5-5.1); Sodium 141 mmol/L (136-145); Total Protein 6.8 g/dL (6.4-8.2)
[2024-12-24] MEDS: 0.9 % SODIUM CHLORIDE 1,000 ML 100 ML IV ×2 (07:14→16:39)
[2024-12-24] MEDS: PREGABALIN 75 MG CAPSULE 150 MG PO ×2 (08:30→21:05)
[2024-12-24] MEDS: MELOXICAM 7.5 MG TABLET PO (08:30)
[2024-12-24] MEDS: ENOXAPARIN SODIUM 40 MG/0.4 ML SYRINGE SUBQ (08:30)
--- NOTE | 2024-12-24 08:32 | PM.HP ---
HPI H&P: HPI History of Present Illness Chief complaint: WEAKNESS FALL Narrative: Patient is a 64-year-old female with history of traumatic brain injury 1976 resulting in left upper and lower extremity weakness who used to use a walker to ambulate had a fall in july 2024 and right distal fibular fracture and has been in wheel chair ever since. She has kaley residing at home with her 85 y.o mother who helps her and she pretty much never leaves the bed. She uses the bathroom in adult diaper. She has been very weak over the last week and has not been able to do even the simplest wheel chair transfers and recently slipped off the bed between that and the wheel chair. Patient also has history of Anxiety, Seizures, Chronic pain. She denies any issues this morning other than some soreness in her left leg from PT. She takes Tramadol for pain. ER findings: elevated D-Dimer 1.57, CTA of the chest was negative for PE, Cr 0.60, mag 1.9, K 4.3, WBC's 8.4 and UA was positive for UTI. Lower ext doppler ultrasounds are pending this morning. Opioid HPI Opioid Management Most Recent Pain and Opioid Data: Last Pain Scale 4 12/24/24 11:49 12/24/24 Last Pain Intensity 5 07/14/24 10:15 07/14/24 Last Pain Assessment 12/24/24 11:49 Last ORT Total Score 0 12/23/24 20:05 12/23/24 Last ORT Risk Category Low Risk 12/23/24 20:05 12/23/24 Review of Systems ROS Narrative ROS: a complete review of systems were reviewed with patient and are positive as below or listed in History of Chief Complaint. General: no fever, chills, night sweats Head: no headache, trauma, visual changes, nausea or vomiting Skin: no reported rashes, itching or sores Eyes: no blurriness of vision Ears: no reported hearing loss, vertigo, earache, or tinnitus Throat: no sore throat, hoarseness, swelling of neck, or tongue pain Heart: no chest pain Lungs: no shortness of breath or cough GI: no diarrhea or vomiting/nausea Urinary: no urinary urgency, frequency or pain Neuro: no numbness or tingling, lower ext weakness HEM: no bleeding issues or bruising ENDO: no thyroid problems Psych:anxiety or depression PFSH PFS Medical History (Updated 12/24/24 @ 08:39 by Yolande Melgar DO) Weakness of left side of body ?R53.1 - Weakness (ICD-10) Hemorrhagic stroke ?I61.9 - Nontraumatic intracerebral hemorrhage, unspecified (ICD-10) Recurrent severe major depressive disorder with anxiety ?F33.2 - Major depressive disorder, recurrent severe without psychotic features (ICD-10) ?F41.9 - Anxiety disorder, unspecified (ICD-10) Multiple sclerosis ?G35 - Multiple sclerosis (ICD-10) UTI (urinary tract infection) ?N39.0 - Urinary tract infection, site not specified (ICD-10) Ambulatory dysfunction ?R26.2 - Difficulty in walking, not elsewhere classified (ICD-10) Seizure disorder ?G40.909 - Epilepsy, unspecified, not intractable, without status epilepticus (ICD-10) Fall ?W19.XXXA - Unspecified fall, initial encounter (ICD-10) Nondisplaced fracture of right fibula ?S82.401A - Unspecified fracture of shaft of right fibula, initial encounter for closed fracture (ICD-10) Abrasion of face ?S00.81XA - Abrasion of other part of head, initial encounter (ICD-10) Fibula fracture ?S82.409A - Unspecified fracture of shaft of unspecified fibula, initial encounter for closed fracture (ICD-10) Lower extremity pain ?M79.606 - Pain in leg, unspecified (ICD-10) Back pain ?M54.9 - Dorsalgia, unspecified (ICD-10) Closed head injury ?S09.90XA - Unspecified injury of head, initial encounter (ICD-10) Contusion of face ?S00.83XA - Contusion of other part of head, initial encounter (ICD-10) Contusion of sacral region ?S30.0XXA - Contusion of lower back and pelvis, initial encounter (ICD-10) Fall ?W19.XXXA - Unspecified fall, initial encounter (ICD-10) H/O traumatic brain injury ?Z87.820 - Personal history of traumatic brain injury (ICD-10) Cat scratch fever ?A28.1 - Cat-scratch disease (ICD-10) Aneurysm ?I72.9 - Aneurysm of unspecified site (ICD-10) Arm fracture, left ?S42.302A - Unspecified fracture of shaft of humerus, left arm, initial encounter for closed fracture (ICD-10) Depression ?F32.A - Depression, unspecified (ICD-10) Anxiety ?F41.9 - Anxiety disorder, unspecified (ICD-10) DVT (deep venous thrombosis) ?I82.409 - Acute embolism and thrombosis of unspecified deep veins of unspecified lower extremity (ICD-10) Traumatic brain injury ?S06.9XAA - Unspecified intracranial injury with loss of consciousness status unknown, initial encounter (ICD-10) Surgical History Hx of tracheostomy ?Z98.890 - Other specified postprocedural states (ICD-10) Family History Grandfather Family history of CHF (congestive heart failure) Family history of cancer Aunt Family history of diabetes mellitus Family history of stroke Other Family history of COPD (chronic obstructive pulmonary disease) Social History Within the past year, how often did you have a drink containing alcohol: never Score interpretation: A score less than 3 is consistent with normal alcohol consumption. Smoking status: Never smoker Non-prescribed substance use: denies use Previous occupational history: disabled Highest level of school completed/degree received: some college, no degree Are you now , , , , never or living with a partner: never Little interest or pleasure in doing things: not at all Feeling down, depressed, or hopeless: not at all Feel stressed/tense/nervous/anxious/difficulty sleeping: not at all Do you think of yourself as: straight/heterosexual Gender Identity: female Meds Home Medications and Allergies Home Medications ?Medication ?Instructions ?Recorded ?Confirmed ?Type duloxetine 20 mg capsule,delayed 20 mg PO BID 11/15/23 12/23/24 History release duloxetine 60 mg capsule,delayed 60 mg PO BEDTIME 11/15/23 12/23/24 History release meloxicam 7.5 mg tablet 7.5 mg PO DAILY 11/15/23 12/23/24 History oxcarbazepine 300 mg tablet 600 mg PO BEDTIME 11/15/23 12/23/24 History oxybutynin chloride 15 mg 15 mg PO DAILY 11/15/23 12/23/24 History tablet,extended release 24 hr alprazolam 0.5 mg tablet 0.5 mg PO TID PRN anxiety 07/12/24 12/23/24 History divalproex 250 mg tablet,extended 250 mg PO QID 07/12/24 12/23/24 History release 24 hr pregabalin 100 mg capsule 150 mg PO BID 07/12/24 12/23/24 History tramadol 50 mg tablet 50 mg PO Q12H PRN pain 12/23/24 12/23/24 History Allergies Allergy/AdvReac Type Severity Reaction Status Date / Time latex Allergy Mild Hives Verified 12/23/24 16:43 Penicillins Allergy Mild Rash Verified 12/23/24 16:43 rofecoxib (From Vioxx) Allergy Mild Rash Verified 12/23/24 16:43 Exam Narrative Exam Narrative: General: Patient is alert, and oriented to person, place and time with normal affect, proper hygiene Skin: no visible rashes, or ulcers Head: atraumatic, acephalic Eyes: PERRLA, no nystagmus present, conjunctiva clear, no scleral icterus Ears: normal gross auditory acuity Mouth/Throat: no erythema, exudate, or tonsillar enlargement, poor dentition Neck: no masses palpated, normal thyroid Heart: Normal rate and rhythm, no murmurs/rubs/gallops Lungs: no audible wheezes, crackles and normal breath sounds all lung lopez Abdomen: Normal audible bowel sounds, no distension, No palpable masses, no organomegaly, no rebound/guarding/ or rigidity Musculoskeletal: no swelling bilateral lower extremities Neuro: CN II-X grossly intact Constitutional Vital Signs, click to edit/add: Last Vital Signs Temp 97.8 F 12/24/24 07:21 Pulse 81 12/24/24 08:00 Resp 20 12/24/24 07:21 BP 98/62 12/24/24 07:21 Pulse Ox 92 L 12/24/24 07:21 O2 Del Method Room Air 12/24/24 07:21 Results Labs Labs: Short CBC 12/23/24 12/24/24 Range/Units 17:15 05:44 WBC 9.4 8.4 (4.0-11.0) 10^3/uL Hgb 13.1 13.3 (12.0-16.0) g/dL Hct 39.9 39.6 (36.0-48.0) % Plt Count 318 298 (150-450) 10^3/uL BMP 12/23/24 12/24/24 17:15 05:44 Sodium 138 141 Potassium 3.8 4.3 Chloride 100 103 Carbon Dioxide 31.1 32.0 BUN 12.0 8.0 Creatinine 0.79 0.60 Glucose 121 H 84 Calcium 9.5 9.5 Liver Function 12/23/24 12/24/24 Range/Units 17:15 05:44 Total Bilirubin 0.5 0.5 (0.2-1.0) mg/dL AST 11 L 9 L (15-37) U/L ALT <6 L <6 L (14-59) U/L Alkaline Phosphatase 78 76 (46-116) U/L Albumin 2.8 L 2.7 L (3.4-5.0) g/dL Urine 12/23/24 Range/Units 21:30 Urine Color Lt. yellow (YELLOW) Urine Clarity Clear (CLEAR) Urine pH 6.5 (5.0-9.0) Ur Specific [place] <=1.005 A (1.005-1.025) Urine Protein Negative (NEG/TRACE) mg/dL Urine Glucose (UA) Negative (NEGATIVE) mg/dL Assessment and Plan Assessment and Plan (1) Acute UTI: Assessment and Plan: urine culture pending, continue Rocephin (2) Elevated d-dimer: Assessment and Plan: CTA of the chest negative for PE, bilateral lower ext dopplers pending (3) Generalized weakness: Assessment and Plan: could be above issues or progression of her MS?, Will get pt/ot evaluations, patient is wheel chair/bed bound currently but has ambition to walk again (4) Recurrent severe major depressive disorder with anxiety: Assessment and Plan: continue xanax, duloxetine (5) Multiple sclerosis: Assessment and Plan: continue with lyrica, tramadol, mobic (6) Seizure disorder: Assessment and Plan: continue divalproex and oxcarbazepine (7) Nondisplaced fracture of right fibula: Assessment and Plan: old finding but pain limits her mobility on the right Qualifiers: Encounter type: subsequent encounter Fibula location: distal physis (incl. Salter-Sheth) Fracture healing: with routine healing Qualified Code(s): S89.301D - Unspecified physeal fracture of lower end of right fibula, subsequent encounter for fracture with routine healing (8) H/O traumatic brain injury: (9) Weakness of left side of body: Assessment and Plan: from prior TBI, limiting her mobility and quality of life Plan patient is a full code continue lovenox for DVT prophylaxis Patient is currently observation status and is expected to cross 2 midnights awaiting medical necessity for Acute rehab placement Urinary Catheter Management Urinary Catheter Management Pure Wick: Cath placed during this visit: yes Urethral indwelling: No Insertion date: 12/23/24 Insertion time: 20:20
--- NOTE | 2024-12-24 09:00 | CM.NOTE ---
Rounds made with Dr. Melgar, discussed plan of care with pt and lab findings. Spoke with pt regarding skilled therapy at discharge, pt is open to this and requests [facility]. Eddie txt sent to CELSO Jiménez. No discharge today.
[2024-12-24] MEDS: TRAMADOL HCL 50 MG TABLET PO (10:29)
--- NOTE | 2024-12-24 10:50 | SWNOTE1 ---
SW received a message from case management and pt would like to go to [facility] for rehab. CELSO sent email to Melissa at [facility] to see if they have openings.
--- NOTE | 2024-12-24 10:54 | SWNOTE1 ---
[facility] does have openings. Referral sent to [facility]. Referral included face sheet, ED note, case management report, nursing notes, diagnostic imaging, med list, and OT note.
--- NOTE | 2024-12-24 12:07 | SWNOTE1 ---
CELSO faxed over H&P to Melissa at [facility].
--- NOTE | 2024-12-24 12:36 | CM.NOTE ---
Medicare Outpatient Observation Notice discussed with pt, pt verbalizes understanding and signs paper. Original given to pt and copy placed on pt's chart.
--- NOTE | 2024-12-24 13:02 | SWNOTE1 ---
CELSO received call from Melissa at [facility] and she asked about pt's [employer] plan? Melissa stated it is charted everywhere that pt will need [employer] care and that pt and her mother agreed upon this. Melissa stated her DON will want to know the superintendent marine [employer] plan. SW to speak with pt about medicaid and [employer] plan.
--- NOTE | 2024-12-24 13:17 | SWNOTE1 ---
CELSO spoke to pt about her custodial plan. She stated she wants to get up and walk again and that is her goal to go home. CELSO spoke with her about custodial and Medicaid. She stated they did apply for Medicaid but between her and her mom, they made too much. CELSO did talk to her about worst case scenario that she won't be able to safely discharge back home as she will not be able to ambulate and would she stay at care home. She did voice she would if it came down to that. CELSO called Melissa at [facility]. At this point they will have Bettina from [facility] come out and see her and Melissa will talk to Karina and see if pt and mother willing to complete Medicaid kannan. Melissa will let us know once all that is complete.
--- NOTE | 2024-12-24 15:26 | CM.NOTE ---
[facility] able to accept pt for skilled and starting precert today.
[2024-12-24] MEDS: OXcarbazepine 300 MG TABLET 600 MG PO (21:05)
[2024-12-24] MEDS: DULOXETINE HCL 60 MG CAPSULE.DR PO (21:05)
[2024-12-25] VITALS (19 sets, daily range): BP systolic 92–134; BP diastolic 62–72; PULSE 72–97; TEMP 36.4–36.7; O2SAT 92–98
[2024-12-25] MEDS: CEFTRIAXONE 1,000 MG in 0.9 % SODIUM CHLORIDE 50 ML 100 MG IV (01:21)
[2024-12-25] MEDS: 0.9 % SODIUM CHLORIDE 1,000 ML 100 ML IV (03:02)
[2024-12-25] MEDS: DIVALPROEX SODIUM 250 MG TAB.ER.24H PO ×4 (05:06→21:45)
[2024-12-25 05:27] LABS: Basophils Percent Auto 0.2 % (0.2-2.0); Eosinophils Absolute Auto 0.2 10^3/uL (0.0-0.7); Eosinophils Percent Auto 2.1 % (0.9-7.0); Hematocrit 41.7 % (36.0-48.0); Hemoglobin 13.4 g/dL (12.0-16.0); Immature Granulocytes Abs Auto 0.02 10^3/uL (0.00-0.03); Immature Granulocytes Pct Auto 0.2 % (0.0-0.5); Lymphocytes Absolute Auto 1.9 10^3/uL (1.2-3.8); Lymphocytes Percent Auto 22.7 % (20.5-60.0); Mean Corpuscular HGB Conc 32.1 g/dL (29.9-35.2); Mean Corpuscular Hemoglobin 32.1 pg (26.7-34.0); Mean Platelet Volume 10.7 fL (9.5-13.5); Monocytes Percent Auto 11.9 % (1.7-12.0); Neutrophils Absolute Auto 5.1 10^3/uL (1.4-6.5); Neutrophils Percent Auto 62.9 % (43.0-75.0); Platelet Count 278 10^3/uL (150-450); Red Blood Count 4.17 10^6/uL (4.20-5.40); Red Cell Distribution Width 14.4 % (11.0-15.0); White Blood Count 8.2 10^3/uL (4.0-11.0)
[2024-12-25 05:46] LABS: Alanine Aminotransferase <6 U/L (14-59); Albumin Globulin Ratio 0.6; Albumin Level 2.6 g/dL (3.4-5.0); Alkaline Phosphatase 76 U/L (46-116); Anion Gap 10.9; Aspartate Amino Transferase 12 U/L (15-37); BUN Creatinine Ratio 10.3; Bilirubin Total 0.3 mg/dL (0.2-1.0); Calcium 9.2 mg/dL (8.5-10.1); Carbon Dioxide 30.2 mmol/L (21.0-32.0); Chloride 105 mmol/L (98-107); Estimated GFR (African America >60 (>=60 mL/min/1.73m^2); Estimated GFR (Non-African Ame >60 (>=60 mL/min/1.73m^2); Globulin 4.1 g/dL; Glucose 75 mg/dL (74-106); Magnesium 1.8 mg/dL (1.8-2.4); Potassium 4.1 mmol/L (3.5-5.1); Sodium 142 mmol/L (136-145); Total Protein 6.7 g/dL (6.4-8.2)
--- NOTE | 2024-12-25 07:56 | P.PN_ITS ---
Progress Note: Subjective Subjective Interval history: Patient resting comfortably in bed. No current issues or complaints this morning. Discussed negative findings of Venous doppler study of bilateral lower ext. Vitals and labs stable. Awaiting precert to retirement facility. Exam Narrative Exam Narrative: General: Patient is alert, and oriented to person, place and time with normal affect, proper hygiene Skin: no visible rashes, or ulcers Head: atraumatic, acephalic Eyes: PERRLA, no nystagmus present, conjunctiva clear, no scleral icterus Ears: normal gross auditory acuity Mouth/Throat: no erythema, exudate, or tonsillar enlargement, poor dentition Neck: no masses palpated, normal thyroid Heart: Normal rate and rhythm, no murmurs/rubs/gallops Lungs: no audible wheezes, crackles and normal breath sounds all lung lopez Abdomen: Normal audible bowel sounds, no distension, No palpable masses, no organomegaly, no rebound/guarding/ or rigidity Musculoskeletal: no swelling bilateral lower extremities Neuro: CN II-X grossly intact Constitutional Vital Signs, click to edit/add: Last Vital Signs Temp 98.1 F 12/25/24 03:05 Pulse 76 12/25/24 07:50 Resp 18 12/25/24 03:05 BP 134/67 12/25/24 03:05 Pulse Ox 92 L 12/25/24 03:05 O2 Del Method Room Air 12/25/24 03:05 Progress Note: Objective Labs Labs: Short CBC 12/25/24 Range/Units 05:02 WBC 8.2 (4.0-11.0) 10^3/uL Hgb 13.4 (12.0-16.0) g/dL Hct 41.7 (36.0-48.0) % Plt Count 278 (150-450) 10^3/uL BMP 12/25/24 05:02 Sodium 142 Potassium 4.1 Chloride 105 Carbon Dioxide 30.2 BUN 6.0 L Creatinine 0.58 Glucose 75 Calcium 9.2 Liver Function 12/25/24 Range/Units 05:02 Total Bilirubin 0.3 (0.2-1.0) mg/dL AST 12 L (15-37) U/L ALT <6 L (14-59) U/L Alkaline Phosphatase 76 (46-116) U/L Albumin 2.6 L (3.4-5.0) g/dL Progress Note: A&P Assessment and Plan (1) Acute UTI: Assessment and Plan: urine culture pending, continue Rocephin (2) Elevated d-dimer: Assessment and Plan: CTA of the chest negative for PE, bilateral lower ext dopplers negative (3) Generalized weakness: Assessment and Plan: awaiting precert to retirement facility (4) Recurrent severe major depressive disorder with anxiety: Assessment and Plan: continue xanax, duloxetine (5) Multiple sclerosis: Assessment and Plan: continue with lyrica, tramadol, mobic (6) Seizure disorder: Assessment and Plan: continue divalproex and oxcarbazepine (7) Nondisplaced fracture of right fibula: Assessment and Plan: old finding but pain limits her mobility on the right Qualifiers: Encounter type: subsequent encounter Fibula location: distal physis (i ncl. Salter-Sheth) Fracture healing: with routine healing Qualified Code(s): S89.301D - Unspecified physeal fracture of lower end of right fibula, subsequent encounter for fracture with routine healing (8) H/O traumatic brain injury: (9) Weakness of left side of body: Assessment and Plan: from prior TBI, limiting her mobility and quality of life Plan patient is a full code continue lovenox for DVT prophylaxis Patient will remain in observation status until she is accepted to a retirement facility. Urinary Catheter Management Urinary Catheter Management Pure Wick: Cath placed during this visit: yes Urethral indwelling: No Insertion date: 12/24/24 Insertion time: 23:25
[2024-12-25] MEDS: PREGABALIN 75 MG CAPSULE 150 MG PO ×2 (09:48→21:45)
[2024-12-25] MEDS: ENOXAPARIN SODIUM 40 MG/0.4 ML SYRINGE SUBQ (09:48)
[2024-12-25] MEDS: MELOXICAM 7.5 MG TABLET PO (09:48)
--- NOTE | 2024-12-25 11:20 | CM.NOTE ---
Rounds made with Dr. Melgar, pt will discharge to [facility] for skilled therapy when medically stable.
--- NOTE | 2024-12-25 11:23 | PT.DAILY ---
Physical Therapy Daily Note PT Daily Note/Assess Start: 12/25/24 11:14 Freq: Status: Active Protocol: Document 12/25/24 10:55 DEBBIE (Rec: 12/25/24 11:23 [email or web address] [id number]) Physical Therapy Daily Note/Assessment Time In/Time Out Time In 10:55 Time Out 11:12 Subjective Subjective Pain 5/10 patient reports this is less than previous day. Patient was pleasant and cooperative with therapy. Therapeutic Exercise Time Therapeutic Exercise 12 Minutes (minutes) Therapeutic Exercise 1 Units Therapeutic Exercise Treatment Therapeutic Exercise Ankle pumps x 2 minutes Treatment Quad sets x10 Glute sets x 10 AAROM heel slides 2x5 AAROM SLR x5 AAROM hip abduction x5 Adduction squeezes x 10 Therapeutic Activity Time Therapeutic Activity 5 Minutes (minutes) Therapeutic Activity 0 Units Therapeutic Activity Treatment Bed Mobility Ability Maximum Assist,2 Person Assist Therapeutic Activity Attempted supine to sit transfer with MAX A x2 patient Comments comes up into partial sitting unable to get to full EOB sitting due to pain and resistance of L LE. Patient sat in partial sitting for 30 seconds to 1 minute before returning to supine. Patient then required MAX A x2 to reposition in bed for comfort. Total Physical Therapy Time Total Therapy 17 Minutes Total Physical 1 Therapy Units Summary Daily Note Summary Patient was cooperative with therapy, unable to achieve unsupported EOB sitting due to increased pain with mobility. Recommend SNF at discharge to improve strength and safety for basic transfers and bed mobility. Patient in supine with rails up with call light in reach and all needs met post treatment.
[2024-12-25] MEDS: ACETAMINOPHEN 325 MG TABLET 650 MG PO (11:50)
[2024-12-25] MEDS: TRAMADOL HCL 50 MG TABLET PO (11:50)
--- NOTE | 2024-12-25 14:11 | CM.NOTE ---
Called Melissa at [facility] to check on insurance approval, still pending.
--- NOTE | 2024-12-25 14:27 | OT.DAILY ---
Occupational Therapy Daily Note OT Inpatient Daily Visit Note Start: 12/24/24 10:36 Freq: Status: Active Protocol: Document 12/25/24 14:18 [id number] (Rec: 12/25/24 14:26 [id number]) OT Visit Details Time In/Time Out Time In 14:00 Time Out 14:17 OT Treatment Plan Subjective Subjective Pt AAOX4 agreeable to participate. Pt reports she is motivated to increase functional mobility. Agreeable to self care tasks at this time. Reports slight discomfort in LLE. Objective Objective Pt lying supine in bed. With set up of supplies Pt able to wash face and hair while maintaining seated KATHLEEN in bed. Good overhead ROM when combing hair. Slight shortness of breath following this task. Given a short break Pt able to wash axillary area, good crossing midline. Assessment Assessment Pt tolerated treatment well. She is eager to return to SNF to continue therapy. Continue OT POC. OT Theology Professor Timed Codes Self-Senior Care 14 Management minutes ( minutes) Self-Senior Care 1 Management units
[2024-12-25] MEDS: OXcarbazepine 300 MG TABLET 600 MG PO (21:45)
[2024-12-25] MEDS: DULOXETINE HCL 60 MG CAPSULE.DR PO (21:46)
[2024-12-26] VITALS (16 sets, daily range): BP systolic 100–104; BP diastolic 62–67; PULSE 71–99; TEMP 36.6–36.7; O2SAT 93–95
[2024-12-26] MEDS: CEFTRIAXONE 1,000 MG in 0.9 % SODIUM CHLORIDE 50 ML 100 MG IV (01:11)
[2024-12-26 05:18] LABS: Basophils Percent Auto 0.4 % (0.2-2.0); Eosinophils Absolute Auto 0.2 10^3/uL (0.0-0.7); Eosinophils Percent Auto 2.8 % (0.9-7.0); Hematocrit 33.9 % (36.0-48.0); Hemoglobin 11.4 g/dL (12.0-16.0); Immature Granulocytes Abs Auto 0.01 10^3/uL (0.00-0.03); Immature Granulocytes Pct Auto 0.2 % (0.0-0.5); Lymphocytes Absolute Auto 2.1 10^3/uL (1.2-3.8); Lymphocytes Percent Auto 36.5 % (20.5-60.0); Mean Corpuscular HGB Conc 33.6 g/dL (29.9-35.2); Mean Corpuscular Hemoglobin 32.7 pg (26.7-34.0); Mean Corpuscular Volume 97.1 fL (81.0-99.0); Mean Platelet Volume 10.3 fL (9.5-13.5); Monocytes Absolute Auto 0.6 10^3/uL (0.3-0.8); Monocytes Percent Auto 10.9 % (1.7-12.0); Neutrophils Absolute Auto 2.8 10^3/uL (1.4-6.5); Neutrophils Percent Auto 49.2 % (43.0-75.0); Platelet Count 301 10^3/uL (150-450); Red Blood Count 3.49 10^6/uL (4.20-5.40); Red Cell Distribution Width 14.3 % (11.0-15.0); White Blood Count 5.7 10^3/uL (4.0-11.0)
[2024-12-26 06:11] LABS: Alanine Aminotransferase <6 U/L (14-59); Albumin Globulin Ratio 0.7; Albumin Level 2.4 g/dL (3.4-5.0); Alkaline Phosphatase 70 U/L (46-116); Aspartate Amino Transferase 9 U/L (15-37); BUN Creatinine Ratio 15.5; Bilirubin Total 0.2 mg/dL (0.2-1.0); Carbon Dioxide 27.8 mmol/L (21.0-32.0); Chloride 101 mmol/L (98-107); Estimated GFR (African America >60 (>=60 mL/min/1.73m^2); Estimated GFR (Non-African Ame >60 (>=60 mL/min/1.73m^2); Globulin 3.5 g/dL; Glucose 82 mg/dL (74-106); Magnesium 1.7 mg/dL (1.8-2.4); Potassium 3.8 mmol/L (3.5-5.1); Sodium 137 mmol/L (136-145); Total Protein 5.9 g/dL (6.4-8.2)
[2024-12-26] MEDS: DIVALPROEX SODIUM 250 MG TAB.ER.24H PO ×4 (06:29→22:05)
[2024-12-26] MEDS: TRAMADOL HCL 50 MG TABLET PO (07:18)
--- NOTE | 2024-12-26 07:34 | CM.NOTE ---
2nd Important Message From Medicare discussed with pt, pt denies questions or concerns.
--- NOTE | 2024-12-26 08:41 | P.DS_ITS ---
DS: Providers Provider Date of admission: 12/23/24 19:38 Primary care physician: INDER ROBERSON Attending physician on admission: Yolande Melgar Consults: 12/23/24 18:40 Consult to Case Management Routine Reason for consultation: needs placement Has provider been notified: No Consult to Discharge Planning Routine Reason for consultation: unable to perform ADLs Has provider been notified: No Occupational Therapy Eval and Treat Routine Reason for consultation: unable to perform ADLs Has provider been notified: No Physical Therapy Eval and Treat Routine Reason for consultation: unable to perform ADLs Has provider been notified: No Discharging clinician: Yolande Melgar DS: Diagnosis Discharge Diagnosis (1) Elevated d-dimer: (2) Generalized weakness: (3) Recurrent severe major depressive disorder with anxiety: (4) Multiple sclerosis: (5) Seizure disorder: (6) Nondisplaced fracture of right fibula: Qualifiers: Encounter type: subsequent encounter Fibula location: distal physis (incl. Salter-Sheth) Fracture healing: with routine healing Qualified Code(s): S89.301D - Unspecified physeal fracture of lower end of right fibula, subsequent encounter for fracture with routine healing (7) H/O traumatic brain injury: (8) Weakness of left side of body: (9) UTI due to Klebsiella species: DS: Summary Hospital Course Hospital Course: Patient is a 64-year-old female with history of traumatic brain injury 1976 resulting in left upper and lower extremity weakness who used to use a walker to ambulate had a fall in July 2024 and right distal fibular fracture and has been in wheel chair ever since. She has kaley residing at home with her 85 y.o mother who helps her and she pretty much never leaves the bed. She uses the bathroom in adult diaper. She has been very weak over the last week and has not been able to do even the simplest wheel chair transfers and recently slipped off the bed between that and the wheel chair. Patient also has history of Anxiety, Seizures, Chronic pain. She takes Tramadol for pain. ER findings: elevated D- Dimer 1.57, CTA of the chest was negative for PE, Cr 0.60, mag 1.9, K 4.3, WBC's 8.4 and UA was positive for UTI and was treated with Rocephin but cultures grew Klebsiella Pneumoniae causing the UTI so will be treated with Keflex 500mg BID x 7 days as it is sensitive to. Lower ext Doppler ultrasounds were also negative for acute DVT. Labs and vitals have been stable. PT/OT have recommended prison. She [facility]. Status at Discharge Functional status at discharge: wheelchair bound Overall status at discharge: patient is progressing back to baseline Time Spent with Patient Time attestation: Total time spent providing and/or coordinating discharge services: Time spent: greater than 30 minutes Exam Narrative Exam Narrative: General: Patient is alert, and oriented to person, place and time with normal affect, proper hygiene Skin: no visible rashes, or ulcers Head: atraumatic, acephalic Eyes: PERRLA, no nystagmus present, conjunctiva clear, no scleral icterus Ears: normal gross auditory acuity Mouth/Throat: no erythema, exudate, or tonsillar enlargement, poor dentition Neck: no masses palpated, normal thyroid Heart: Normal rate and rhythm, no murmurs/rubs/gallops Lungs: no audible wheezes, crackles and normal breath sounds all lung lopez Abdomen: Normal audible bowel sounds, no distension, No palpable masses, no organomegaly, no rebound/guarding/ or rigidity Musculoskeletal: no swelling bilateral lower extremities Neuro: CN II-X grossly intact Constitutional Vital Signs, click to edit/add: Last Vital Signs Temp 98 F 12/26/24 07:05 Pulse 82 12/26/24 08:00 Resp 20 12/26/24 07:05 BP 101/63 12/26/24 07:05 Pulse Ox 94 L 12/26/24 07:05 O2 Del Method Room Air 12/26/24 07:05 DS: Data Data Completed and Pending Labs on day of discharge: Labs from last 24 hours 12/26/24 04:56 WBC 5.7 RBC 3.49 L Hgb 11.4 L Hct 33.9 L MCV 97.1 MCH 32.7 MCHC 33.6 RDW 14.3 Plt Count 301 MPV 10.3 Neut % (Auto) 49.2 Lymph % (Auto) 36.5 [place] % (Auto) 10.9 Eos % (Auto) 2.8 Baso % (Auto) 0.4 Neut # (Auto) 2.8 Lymph # (Auto) 2.1 [place] # (Auto) 0.6 Eos # (Auto) 0.2 Baso # (Auto) 0.0 Abs Immat Gran (auto) 0.01 Imm/Tot Granulo (auto) 0.2 Sodium 137 Potassium 3.8 Chloride 101 Carbon Dioxide 27.8 Anion Gap 12.0 BUN 9.0 Creatinine 0.58 Est GFR ( Amer) >60 Est GFR (Non-Af Amer) >60 BUN/Creatinine Ratio 15.5 Glucose 82 Calcium 9.0 Magnesium 1.7 L Total Bilirubin 0.2 AST 9 L ALT <6 L Alkaline Phosphatase 70 Total Protein 5.9 L Albumin 2.4 L Globulin 3.5 Albumin/Globulin Ratio 0.7 Preliminary micro results at discharge 12/23/24 21:30 Urine Culture - Preliminary Urine,Clean Catch Pending - Specimen sent to [facility] Discharge Plan Discharge Disposition: Xfer [facility] Discharge Medications: No Action duloxetine 20 mg capsule,delayed release(DR/EC) 20 mg PO BID duloxetine 60 mg capsule,delayed release(DR/EC) 60 mg PO BEDTIME meloxicam 7.5 mg tablet 7.5 mg PO DAILY oxcarbazepine 300 mg tablet 600 mg PO BEDTIME oxybutynin chloride 15 mg tablet extended release 24hr 15 mg PO DAILY alprazolam 0.5 mg tablet 0.5 mg PO TID PRN (Reason: anxiety) divalproex 250 mg tablet extended release 24 hr 250 mg PO QID pregabalin 100 mg capsule 150 mg PO BID tramadol 50 mg tablet 50 mg PO Q12H PRN (Reason: pain) Print Language: Norwegian Forms: Portal Instructions
[2024-12-26] MEDS: ENOXAPARIN SODIUM 40 MG/0.4 ML SYRINGE SUBQ (08:49)
[2024-12-26] MEDS: PREGABALIN 75 MG CAPSULE 150 MG PO ×2 (08:49→21:02)
[2024-12-26] MEDS: MELOXICAM 7.5 MG TABLET PO (08:50)
--- NOTE | 2024-12-26 09:00 | CM.NOTE ---
Rounds made with Dr. Melgar, pt will discharge to skilled when medically stable. SW calling [facility] to check on precert.
[2024-12-26] MEDS: ACETAMINOPHEN 325 MG TABLET 650 MG PO ×2 (10:46→16:28)
--- NOTE | 2024-12-26 12:02 | PT.DAILY ---
Physical Therapy Daily Note PT Daily Note/Assess Start: 12/25/24 11:14 Freq: Status: Active Protocol: Document 12/26/24 11:15 DEBBIE (Rec: 12/26/24 12:01 DEBBIE [id number]) Physical Therapy Daily Note/Assessment Time In/Time Out Time In 11:16 Time Out 11:28 Subjective Subjective Patient is complaining of severe L LE pain today. Patient willing to attempt exercises on R side. Therapeutic Exercise Time Therapeutic Exercise 10 Minutes (minutes) Therapeutic Exercise 1 Units Therapeutic Exercise Treatment Therapeutic Exercise R quat set x10 Treatment R heel slides AAROM x 10 R hip abduction x 10 R ankle pumps glute sets Total Physical Therapy Time Total Therapy 10 Minutes Total Physical 1 Therapy Units Summary Daily Note Summary Patient completes isometrics and AAROM on R LE, attempted L LE but unable to tolerate due to significant pain. Unable to attempt EOB sitting due to pain in L LE, notified nursing. Recommend SNF at discharge to improve strength and mobility. Patient supine with bed rails up and call light in reach post treatment.
--- NOTE | 2024-12-26 14:12 | SWNOTE1 ---
CELSO sent PT note from today, DNRCCA order, and [employer] Medicare card to Melissa at [facility]. CELSO also called pt's insurnace and they voiced precert is still pending and under clinical review.
--- NOTE | 2024-12-26 16:03 | SWNOTE1 ---
CELSO checked with Melissa at [facility] and precert still pending. Melissa at [facility] stated she has contacted insurance a few times today as well and all updates have been submitted. CELSO completed HENS.
[2024-12-26] MEDS: ONDANSETRON PF 4 MG/2 ML VIAL IV (21:01)
[2024-12-26] MEDS: CEPHALEXIN 500 MG CAPSULE PO (21:02)
[2024-12-26] MEDS: DULOXETINE HCL 60 MG CAPSULE.DR PO (22:05)
[2024-12-26] MEDS: OXcarbazepine 300 MG TABLET 600 MG PO (22:05)
[2024-12-27] VITALS (19 sets, daily range): BP systolic 109–116; BP diastolic 58–70; PULSE 78–94; TEMP 36.6; O2SAT 89–98
[2024-12-27] MEDS: DIVALPROEX SODIUM 250 MG TAB.ER.24H PO ×4 (05:31→21:53)
[2024-12-27] MEDS: TRAMADOL HCL 50 MG TABLET PO ×2 (05:32→14:28)
[2024-12-27 06:01] LABS: Basophils Percent Auto 0.4 % (0.2-2.0); Eosinophils Absolute Auto 0.1 10^3/uL (0.0-0.7); Eosinophils Percent Auto 2.5 % (0.9-7.0); Hematocrit 35.4 % (36.0-48.0); Hemoglobin 11.8 g/dL (12.0-16.0); Immature Granulocytes Abs Auto 0.02 10^3/uL (0.00-0.03); Immature Granulocytes Pct Auto 0.4 % (0.0-0.5); Lymphocytes Absolute Auto 1.8 10^3/uL (1.2-3.8); Lymphocytes Percent Auto 31.2 % (20.5-60.0); Mean Corpuscular HGB Conc 33.3 g/dL (29.9-35.2); Mean Corpuscular Hemoglobin 32.2 pg (26.7-34.0); Mean Corpuscular Volume 96.7 fL (81.0-99.0); Mean Platelet Volume 10.5 fL (9.5-13.5); Monocytes Absolute Auto 0.6 10^3/uL (0.3-0.8); Monocytes Percent Auto 10.7 % (1.7-12.0); Neutrophils Absolute Auto 3.1 10^3/uL (1.4-6.5); Neutrophils Percent Auto 54.8 % (43.0-75.0); Platelet Count 290 10^3/uL (150-450); Red Blood Count 3.66 10^6/uL (4.20-5.40); Red Cell Distribution Width 14.2 % (11.0-15.0); White Blood Count 5.6 10^3/uL (4.0-11.0)
[2024-12-27 06:30] LABS: Alanine Aminotransferase 10 U/L (14-59); Albumin Globulin Ratio 0.6; Albumin Level 2.3 g/dL (3.4-5.0); Alkaline Phosphatase 62 U/L (46-116); Anion Gap 10.1; Aspartate Amino Transferase 8 U/L (15-37); BUN Creatinine Ratio 18.4; Bilirubin Total 0.2 mg/dL (0.2-1.0); Carbon Dioxide 29.5 mmol/L (21.0-32.0); Chloride 100 mmol/L (98-107); Estimated GFR (African America >60 (>=60 mL/min/1.73m^2); Estimated GFR (Non-African Ame >60 (>=60 mL/min/1.73m^2); Globulin 3.7 g/dL; Glucose 75 mg/dL (74-106); Magnesium 1.7 mg/dL (1.8-2.4); Potassium 3.6 mmol/L (3.5-5.1); Sodium 136 mmol/L (136-145)
[2024-12-27] MEDS: ENOXAPARIN SODIUM 40 MG/0.4 ML SYRINGE SUBQ (08:47)
[2024-12-27] MEDS: MELOXICAM 7.5 MG TABLET PO (08:47)
[2024-12-27] MEDS: CEPHALEXIN 500 MG CAPSULE PO ×2 (08:47→21:53)
[2024-12-27] MEDS: PREGABALIN 75 MG CAPSULE 150 MG PO ×2 (08:47→21:53)
--- NOTE | 2024-12-27 10:50 | SWNOTE1 ---
CELSO reached out to Melissa at [facility], waiting to hear back.
--- NOTE | 2024-12-27 11:06 | SWNOTE1 ---
CELSO spoke to pt's insurance again and she stated precert still pending and in clinical review. She then asked SW if SW would like to expedite the precertification? SW did ask if that would effect the precert of if physician would have to speak to physician? SHe stated no. She then asked if pt was ready for discharge? SW stated yes she is medically stable. Micaela (person from insurance comapny) then expedited precert and voiced they will reach out to [place] once it is approved.
--- NOTE | 2024-12-27 11:54 | CM.NOTE ---
Rounds made with Dr. Melgar. Dr. Melgar reviews plan of care. Will increase Ultram to q8hrs po for left leg pain.
--- NOTE | 2024-12-27 11:57 | PT.DAILY ---
Physical Therapy Daily Note PT Daily Note/Assess Start: 12/25/24 11:14 Freq: Status: Active Protocol: Document 12/27/24 11:25 DEBBIE (Rec: 12/27/24 11:57 DEBBIE [id number]) Physical Therapy Daily Note/Assessment Time In/Time Out Time In 11:25 Time Out 11:42 Subjective Subjective Patient reports 9/10 pain in L LE but agreeable to treatment. Therapeutic Exercise Time Therapeutic Exercise 12 Minutes (minutes) Therapeutic Exercise 1 Units Therapeutic Exercise Treatment Therapeutic Exercise R quat set x10 Treatment B heel slides AAROM x 10 R hip abduction x 10 B ankle pumps glute sets 3 x 10 second hold long sit Therapeutic Activity Time Therapeutic Activity 5 Minutes (minutes) Therapeutic Activity 0 Units Therapeutic Activity Treatment Therapeutic Activity Attempted to sit EOB on both sides of the bed but pain Comments in L LE prevents patient from moving even when assistance offered. Total Physical Therapy Time Total Therapy 17 Minutes Total Physical 1 Therapy Units Summary Daily Note Summary Patient continues to have severe pain in L LE, rating it 9/10 but is able to complete ankle pumps and heel slides on L side, which is improvement from previous day. Patient also attempted to sit EOB but unable due to increased pain. Continue to recommend SNF at discharge to return to prior level of function. Patient in bed with rails up and call light placed in reach with all needs met post treatment.
--- NOTE | 2024-12-27 13:32 | SWNOTE1 ---
SW sent PT note and nursing notes to Melissa at [facility].
[2024-12-27] MEDS: ACETAMINOPHEN 325 MG TABLET 650 MG PO (14:29)
--- NOTE | 2024-12-27 14:37 | SWNOTE1 ---
CELSO reached out to Melissa at [facility] and precert is still pending.
--- NOTE | 2024-12-27 15:42 | SWNOTE1 ---
CELSO sent OT note to Melissa at [facility]. Precert still pending. All updates have been submitted to insurance.
[2024-12-27] MEDS: DULOXETINE HCL 60 MG CAPSULE.DR PO (21:53)
[2024-12-27] MEDS: OXcarbazepine 300 MG TABLET 600 MG PO (21:54)
[2024-12-28] VITALS (13 sets, daily range): BP systolic 94–122; BP diastolic 57–80; PULSE 79–96; TEMP 36.6–36.8; O2SAT 90–93
[2024-12-28] MEDS: DIVALPROEX SODIUM 250 MG TAB.ER.24H PO ×4 (05:50→21:07)
[2024-12-28 05:54] LABS: Basophils Percent Auto 0.3 % (0.2-2.0); Eosinophils Absolute Auto 0.1 10^3/uL (0.0-0.7); Eosinophils Percent Auto 2.2 % (0.9-7.0); Hematocrit 36.2 % (36.0-48.0); Hemoglobin 11.9 g/dL (12.0-16.0); Immature Granulocytes Abs Auto 0.01 10^3/uL (0.00-0.03); Immature Granulocytes Pct Auto 0.2 % (0.0-0.5); Lymphocytes Absolute Auto 1.9 10^3/uL (1.2-3.8); Lymphocytes Percent Auto 32.8 % (20.5-60.0); Mean Corpuscular HGB Conc 32.9 g/dL (29.9-35.2); Mean Corpuscular Hemoglobin 32.1 pg (26.7-34.0); Mean Corpuscular Volume 97.6 fL (81.0-99.0); Mean Platelet Volume 10.4 fL (9.5-13.5); Monocytes Absolute Auto 0.7 10^3/uL (0.3-0.8); Monocytes Percent Auto 12.3 % (1.7-12.0); Neutrophils Absolute Auto 3.1 10^3/uL (1.4-6.5); Neutrophils Percent Auto 52.2 % (43.0-75.0); Platelet Count 304 10^3/uL (150-450); Red Blood Count 3.71 10^6/uL (4.20-5.40); Red Cell Distribution Width 14.3 % (11.0-15.0); White Blood Count 5.9 10^3/uL (4.0-11.0)
[2024-12-28 06:11] LABS: Alanine Aminotransferase <6 U/L (14-59); Albumin Globulin Ratio 0.6; Albumin Level 2.2 g/dL (3.4-5.0); Alkaline Phosphatase 64 U/L (46-116); Anion Gap 5.8; Aspartate Amino Transferase 9 U/L (15-37); BUN Creatinine Ratio 13.5; Bilirubin Total 0.2 mg/dL (0.2-1.0); Calcium 8.8 mg/dL (8.5-10.1); Chloride 102 mmol/L (98-107); Estimated GFR (African America >60 (>=60 mL/min/1.73m^2); Estimated GFR (Non-African Ame >60 (>=60 mL/min/1.73m^2); Globulin 3.6 g/dL; Glucose 79 mg/dL (74-106); Magnesium 1.8 mg/dL (1.8-2.4); Potassium 3.8 mmol/L (3.5-5.1); Sodium 138 mmol/L (136-145); Total Protein 5.8 g/dL (6.4-8.2)
[2024-12-28] MEDS: PREGABALIN 75 MG CAPSULE 150 MG PO ×2 (09:21→21:06)
[2024-12-28] MEDS: MELOXICAM 7.5 MG TABLET PO (09:21)
[2024-12-28] MEDS: ENOXAPARIN SODIUM 40 MG/0.4 ML SYRINGE SUBQ (09:21)
[2024-12-28] MEDS: CEPHALEXIN 500 MG CAPSULE PO ×2 (09:21→21:07)
--- NOTE | 2024-12-28 09:26 | SWNOTE1 ---
SW called pt's insurance again. He voiced that the precertification has been expedited as of yesterday and still under review and could take up to 48 hours from yesterday.
--- NOTE | 2024-12-28 11:18 | CM.NOTE ---
Rounds made with Dr. Melgar. Current plan of care reviewed by Dr. Melgar with [facility]. Understanding verbalized.
--- NOTE | 2024-12-28 11:34 | SWNOTE1 ---
CELSO checked with Lora Galindo and tessy Torres the precert is still pending and she has been in contact with the insurance as well.
[2024-12-28] MEDS: ACETAMINOPHEN 325 MG TABLET 650 MG PO (11:37)
[2024-12-28] MEDS: TRAMADOL HCL 50 MG TABLET PO ×2 (11:37→21:07)
--- NOTE | 2024-12-28 11:37 | SWNOTE1 ---
SW faxed labs, vitals, physician addendum from yesterday, and PT from today to Melissa at [facility].
--- NOTE | 2024-12-28 11:43 | PT.DAILY ---
Physical Therapy Daily Note PT Daily Note/Assess Start: 12/25/24 11:14 Freq: Status: Active Protocol: Document 12/28/24 11:20 DEBBIE (Rec: 12/28/24 11:42 [email or web address] [id number]) Physical Therapy Daily Note/Assessment Time In/Time Out Time In 11:20 Time Out 11:35 Subjective Subjective Agrees to therapy. Continued complaints of L LE pain. Does cry out with pain during movement. Therapeutic Activity Time Therapeutic Activity 8 Minutes (minutes) Therapeutic Activity 1 Units Therapeutic Activity Treatment Bed Mobility Ability Maximum Assist,2 Person Assist Chair Transfer Maximum Assist,3 or More Person Assist Ability Therapeutic Activity Does initiate movement with R LE to R side of bed, Comments required mod to max assist to move L LE, and then max assist x 2 to come up into seated position. Able to sit EOB unsupported with assistance, but cries out with pain at times. Attempted sit to stand x1, patient unable to bed LE's under self, and requires max assist x3 to clear butt off bed but does not come up into full stand. Stand to sit increases pain due to limited mobility/knee flexion of L knee. Sit to supine max assist x3, with max assist x2 to position in bed for comfort. Total Physical Therapy Time Total Therapy 8 Minutes Total Physical 1 Therapy Units Summary Daily Note Summary Patient does demonstrate improved ability to patriciate with bed mobility, and attempt to stand. Increased pain is noted. Patient is limited with sit to stand transfer due to poor knee flexion in L LE. Requires max assist of 3 for safety with standing attempt. Patient will benefit from SNF at [place] due to failure to thrive at home. Patient was supine in bed with rails up call light in reach and all needs met post RX.
--- NOTE | 2024-12-28 13:11 | SWNOTE1 ---
CELSO received an email from Melissa at [facility] and insurance is intending to deny and peer to peer needs completed immediately. CELSO forwarded message on to Dr. Melgar.
--- NOTE | 2024-12-28 14:19 | SWNOTE1 ---
Dr. Melgar attempted peer to peer but was put on hold. SW attempted to call insurance as well. They did take down information and SW provided information on why pt does need rehab. They requested clinical documentation that she needs SNF as that will be reviewed. Insurance stated they now have 24-48 hours to make a decision based off the conversation and clinical information sent. SW faxed PT/OT from yesterday and today and physician documentation from her stay. SW to speak with [place] and pt about plans if she is denied.
--- NOTE | 2024-12-28 14:43 | SWNOTE1 ---
SW spoke with pt about the possibility of getting denied for SNF. SW asked pt what her plan would be if she does get denied ; home with home health or usp at facility? Pt was not sure at this time. Pt does have a wheelchair at home, but unsure if she would be able to transfer to and from. SW asked if she would feel safe to return home as she has not ambulated while here? Pt was not sure. SW then stated her only option would be to go superintendent terminal at a facility and apply for Medicaid. SW did let her know it is possible that she could get some therapy under her Medicaid eventually. Pt then stated her and her mom plan on moving to [place]. SW asked how they would do that if she was not able to get in and out of a car at this time? Pt stated they would wing it. SW asked if her mom has been here? She stated yes and she just left. SW asked permission to call her mom? Pt alright with this. CELSO attempted 3 x , no answer and no voicemail set up. Pt is not sure of her plan at this time if denied and would like to speak with her mother. CELSO did send an email out to Melissa at [facility] to see if they would take pending Medicaid and had usp bed, waiting to hear back. CELSO expressed again to pt there is a chance she will get denied and be discharged tomorrow. Pt voiced understanding.
--- NOTE | 2024-12-28 15:29 | SWNOTE1 ---
CELSO called and spoke to pt's mother in regards to possibility of being denied for SNF. She stated that has happened before in the past. She also stated that the home health company was not very helpful. They just came and took vitals and sat on there phone for an hour. She stated therapy just lifted her legs a few times and got on their computer and was done. She voiced frustrations with lack of services. CELSO then asked if she was denied for skilled would she be open to pt going fdc at a nursing facility? Pt's mother stated, [place] no no no, no way. She voiced she does not want pt at a nursing facility fdc. Her plan is to eventually take pt to [facility] in [place] once she is feeling better. CELSO again offered to set up home health services if pt is denied, but pt's mother stated no thanks and she can do exercises with her. CELSO did discuss private caregivers, but pt's mother was well aware of the cost and could not afford. At this time, if pt is denied tomorrow or Tuesday for SNF, pt will return home with her mother. CELSO updated doctor and nurse.
[2024-12-28] MEDS: OXcarbazepine 300 MG TABLET 600 MG PO (21:07)
[2024-12-28] MEDS: ONDANSETRON PF 4 MG/2 ML VIAL IV (21:07)
[2024-12-28] MEDS: TEMAZEPAM 15 MG CAPSULE PO (21:07)
[2024-12-28] MEDS: DULOXETINE HCL 60 MG CAPSULE.DR PO (21:07)
[2024-12-29] MEDS: ACETAMINOPHEN 325 MG TABLET 650 MG PO (03:34)
[2024-12-29] MEDS: ALPRAZOLAM 0.5 MG TABLET PO (03:35)
[2024-12-29 03:36] VITALS: BP 108/73; PULSE 85; TEMP 36.7; O2SAT 92
[2024-12-29 05:05] VITALS: O2SAT 90
[2024-12-29] MEDS: DIVALPROEX SODIUM 250 MG TAB.ER.24H PO ×4 (05:51→20:38)
[2024-12-29] MEDS: CEPHALEXIN 500 MG CAPSULE PO ×2 (08:40→20:39)
[2024-12-29] MEDS: ENOXAPARIN SODIUM 40 MG/0.4 ML SYRINGE SUBQ (08:40)
[2024-12-29] MEDS: MELOXICAM 7.5 MG TABLET PO (08:40)
[2024-12-29] MEDS: PREGABALIN 75 MG CAPSULE 150 MG PO ×2 (08:40→20:38)
--- NOTE | 2024-12-29 09:58 | PT.DAILY ---
Physical Therapy Daily Note PT Daily Note/Assess Start: 12/25/24 11:14 Freq: Status: Active Protocol: Document 12/29/24 09:36 [id number] (Rec: 12/29/24 09:58 [id number]) Physical Therapy Daily Note/Assessment Time In/Time Out Time In 08:46 Time Out 09:08 Pain In Pain Level 0 Pain Out Pain Level 0 Subjective Subjective Patient received supine in bed. States her L leg hurts when is moves. Patient agreeable to participate with PT. Nursing present to assist with treatment. Therapeutic Exercise Time Therapeutic Exercise 5 Minutes (minutes) Therapeutic Exercise 0 Units Therapeutic Exercise Treatment Therapeutic Exercise ISSA LE ther ex for ankle pumps, quad/glut sets in Treatment supine x 10 reps. Seated EOB for ankle pumps x 10 reps and LAQ x5 reps with MOD A +1 through available ROM. Therapeutic Activity Time Therapeutic Activity 17 Minutes (minutes) Therapeutic Activity 1 Units Therapeutic Activity Treatment Bed Mobility Ability Maximum Assist,2 Person Assist Therapeutic Activity Bed mobility: supine to R SL is MAX A+2, verbal cues to Comments use UE on bed rail to assist. Patient performed log rolling to R & L 2 times with MAX A +2, MOD A to hold patient in SL position while nursing cleaned patient's asif area due to being soiled. Transfer: R SL to sit at EOB with use of R bed rail is MAX +2. Verbal cues to engage abdominal muscle to maintain upright position . Patient tends to lean to right in sitting. Able to correct x 2 with verbal cues. Patient perform seated ISSA LE ther ex while seated. Demonstrates posterior LOB with LAQ's, able to correct with verbal cues and MOD A +1. Transfer: sitting to R SL to supine is MAX A +2. Patient is MAX +2 to scoot up in bend. Pillows placed under LE for support and to float heels. CBWR. Total Physical Therapy Time Total Therapy 22 Minutes Total Physical 1 Therapy Units Summary Daily Note Summary Patient demonstrates improved participation with bed mobility and sitting posture with verbal cues. Patient verbalizes pain to LE's with functional movement but works hard to participate. Patient would benefit from SNF to address functional deficits.
--- NOTE | 2024-12-29 13:01 | PM.PN ---
Progress Note: Subjective Subjective Interval history: Patient stable this am. Continues to have significant weakness and difficulty with transfers. Afebrile. Normal appetite and no emesis or diarrhea. Remains on keflex for UTI. Peer to Peer completed and waiting for insurance response. Exam Constitutional Vital Signs, click to edit/add: Last Vital Signs Temp 98.1 F 12/29/24 03:36 Pulse 85 12/29/24 03:36 Resp 18 12/29/24 03:36 BP 108/73 12/29/24 03:36 Pulse Ox 90 L 12/29/24 05:05 O2 Del Method Room Air 12/29/24 05:05 Documenting provider has reviewed patient's vital signs: yes Common normals: no apparent distress, oriented x3 and alert HENMT Common normals: normocephalic Eye Common normals: PERRL and EOMs intact bilaterally Respiratory Common normals: normal respiratory effort and clear to auscultation bilaterally Cardio Common normals: regular rate, regular rhythm, no gallops, no murmurs and no rub GI Common normals: Normal to inspection, nondistended, normoactive bowel sounds present and non-tender Extremity Common normals: no pedal edema Progress Note: A&P Assessment and Plan (1) UTI due to Klebsiella species: (2) Fall: (3) Elevated d-dimer: (4) Multiple sclerosis: (5) Generalized weakness: (6) Seizure disorder: (7) Nondisplaced fracture of right fibula: Qualifiers: Encounter type: subsequent encounter Fibula location: distal physis (incl. Salter-Sheth) Fracture healing: with routine healing Qualified Code(s): S89.301D - Unspecified physeal fracture of lower end of right fibula, subsequent encounter for fracture with routine healing Plan Patient stable and continue keflex for UTI. Continue PT/OT. Awaiting insurance decision for SNF. Urinary Catheter Management Urinary Catheter Management Pure Wick: Cath placed during this visit: yes Urethral indwelling: No Insertion date: 12/26/24 Insertion time: 18:01
[2024-12-29] MEDS: MAALOX (MAG HYDROX/ALUMINUM HYD/SIMETH) 30 ML ORAL.SUSP PO (13:58)
[2024-12-29 14:00] VITALS: BP 107/67; PULSE 83; TEMP 36.8; O2SAT 97
[2024-12-29 19:41] VITALS: BP 107/67; BP 91/60; PULSE 92; TEMP 36.4; O2SAT 92
[2024-12-29 20:03] VITALS: PULSE 90
[2024-12-29 20:05] VITALS: O2SAT 90
[2024-12-29] MEDS: ONDANSETRON PF 4 MG/2 ML VIAL IV (20:39)
[2024-12-29] MEDS: OXcarbazepine 300 MG TABLET 600 MG PO (20:39)
[2024-12-29] MEDS: TEMAZEPAM 15 MG CAPSULE PO (20:39)
[2024-12-29] MEDS: DULOXETINE HCL 60 MG CAPSULE.DR PO (20:39)
[2024-12-29] MEDS: CALCIUM CARBONATE 500 MG (200MG ELEMENTAL) TAB CHEW PO (22:53)
[2024-12-30 04:04] VITALS: BP 109/72; PULSE 94; TEMP 36.2; O2SAT 94
[2024-12-30] MEDS: DIVALPROEX SODIUM 250 MG TAB.ER.24H PO ×4 (05:26→21:05)
[2024-12-30] MEDS: TRAMADOL HCL 50 MG TABLET PO (05:26)
[2024-12-30 05:30] VITALS: O2SAT 93
[2024-12-30] MEDS: CEPHALEXIN 500 MG CAPSULE PO ×2 (09:11→21:05)
[2024-12-30] MEDS: ENOXAPARIN SODIUM 40 MG/0.4 ML SYRINGE SUBQ (09:11)
[2024-12-30] MEDS: MELOXICAM 7.5 MG TABLET PO (09:11)
[2024-12-30] MEDS: PREGABALIN 75 MG CAPSULE 150 MG PO ×2 (09:11→21:05)
[2024-12-30 10:45] VITALS: O2SAT 92
--- NOTE | 2024-12-30 11:28 | PM.PN ---
Progress Note: Subjective Subjective Interval history: Patient unchanged this am. Continues to have significant weakness and difficulty with transfers. Afebrile. Normal appetite and no emesis or diarrhea. Remains on keflex for UTI. Peer to Peer completed and waiting for insurance response. Exam Constitutional Vital Signs, click to edit/add: Last Vital Signs Temp 97.2 F L 12/30/24 04:04 Pulse 94 H 12/30/24 04:04 Resp 18 12/30/24 08:18 BP 109/72 12/30/24 04:04 Pulse Ox 92 L 12/30/24 10:45 O2 Del Method Room Air 12/30/24 10:45 Documenting provider has reviewed patient's vital signs: yes Common normals: no apparent distress, oriented x3 and alert HENMT Common normals: normocephalic Eye Common normals: PERRL and EOMs intact bilaterally Respiratory Common normals: normal respiratory effort and clear to auscultation bilaterally Cardio Common normals: regular rate, regular rhythm, no gallops, no murmurs and no rub GI Common normals: Normal to inspection, nondistended, normoactive bowel sounds present and non-tender Extremity Common normals: no pedal edema Progress Note: A&P Assessment and Plan (1) UTI due to Klebsiella species: (2) Fall: (3) Elevated d-dimer: (4) Multiple sclerosis: (5) Generalized weakness: (6) Seizure disorder: (7) Nondisplaced fracture of right fibula: Qualifiers: Encounter type: subsequent encounter Fibula location: distal physis (incl. Salter-Sheth) Fracture healing: with routine healing Qualified Code(s): S89.301D - Unspecified physeal fracture of lower end of right fibula, subsequent encounter for fracture with routine healing Plan Patient stable and continue keflex for UTI. Continue PT/OT. Awaiting insurance decision for SNF. If denied patient plans on going home and does not want home health. Not interested in ECF. Urinary Catheter Management Urinary Catheter Management Pure Wick: Cath placed during this visit: yes, but has since been removed by the nurse Urethral indwelling: No Insertion date: 12/29/24 Insertion time: 18:43 Removal date: 12/29/24 Removal time: 18:30
[2024-12-30 16:31] VITALS: BP 106/72; PULSE 91; TEMP 36.4; O2SAT 92
[2024-12-30 20:10] VITALS: O2SAT 93
[2024-12-30] MEDS: OXcarbazepine 300 MG TABLET 600 MG PO (21:04)
[2024-12-30] MEDS: DULOXETINE HCL 60 MG CAPSULE.DR PO (21:05)
[2024-12-30 21:06] VITALS: BP 105/77; PULSE 88; TEMP 36.5; O2SAT 90
[2024-12-31] MEDS: DIVALPROEX SODIUM 250 MG TAB.ER.24H PO (05:07)
[2024-12-31 05:10] VITALS: BP 113/72; PULSE 93; TEMP 36.6; O2SAT 90
[2024-12-31] MEDS: PREGABALIN 75 MG CAPSULE 150 MG PO (08:00)
[2024-12-31] MEDS: CEPHALEXIN 500 MG CAPSULE PO (08:00)
[2024-12-31] MEDS: MELOXICAM 7.5 MG TABLET PO (08:00)
[2024-12-31] MEDS: ENOXAPARIN SODIUM 40 MG/0.4 ML SYRINGE SUBQ (08:00)
--- NOTE | 2024-12-31 08:30 | CM.NOTE ---
Rounds made with Dr. Obregon, pt will discharge to skilled today. Pt will need to transfer per stretcher.
--- NOTE | 2024-12-31 09:02 | CM.NOTE ---
Called Melissa at [facility], e-mailed her approval for skilled, discharge med rec, and discharge summary. Gave her time for transport. Transport set up with [facility] for 10:00am.
--- NOTE | 2024-12-31 09:04 | CM.NOTE ---
Updated pt on transport and time. Attempted to call pt's mother, no answer.
--- NOTE | 2024-12-31 09:15 | P.PN_ITS ---
Progress Note: Subjective Subjective Interval history: Patient states she does feel little stronger today but when I asked her to sit up to listen to her lungs, she was unable Exam Constitutional Vital Signs, click to edit/add: Last Vital Signs Temp 97.9 F 12/31/24 05:10 Pulse 93 H 12/31/24 05:10 Resp 20 12/31/24 05:10 BP 113/72 12/31/24 05:10 Pulse Ox 90 L 12/31/24 05:10 O2 Del Method Room Air 12/31/24 05:10 Documenting provider has reviewed patient's vital signs: yes Common normals: apparent distress (Just appears generally weak) Chest Common normals: inspection of chest normal Respiratory Common normals: normal respiratory effort Cardio Common normals: regular rate and regular rhythm GI Common normals: negative for Normal to inspection, nondistended, normoactive bowel sounds present (Morbid obesity) Extremity Common normals: abnormal to inspection (Trace edema) Progress Note: A&P Assessment and Plan (1) UTI due to Klebsiella species: (2) Fall: (3) Elevated d-dimer: (4) Multiple sclerosis: (5) Generalized weakness: (6) Seizure disorder: (7) Nondisplaced fracture of right fibula: Qualifiers: Encounter type: subsequent encounter Fibula location: distal physis (incl. Salter-Sheth) Fracture healing: with routine healing Qualified Cod e(s): S89.301D - Unspecified physeal fracture of lower end of right fibula, subsequent encounter for fracture with routine healing Plan (1) UTI due to Klebsiella species: Sensitive to cephalexin (2) Fall: No significant weakness, excellent rehabilitation candidate (3) Elevated d-dimer: Workup unremarkable (4) Multiple sclerosis: Patient states slowly improving (5) Generalized weakness: Patient states slowly improving (6) Seizure disorder: Maintain current medications (7) Nondisplaced fracture of right fibula: Qualifiers: Encounter type: subsequent encounter Fibula location: distal physis (incl. Salter-Sheth) Fracture healing: with routine healing Qualified Code(s): S89.301D - Unspecified physeal fracture of lower end of right fibula, subsequent encounter for fracture with routine healing (8) moderate protein calorie malnutrition-diet management at rehab (9) morbid obesity-diet management at rehab (10) trace edema-monitor at rehab, compression hose recommended and likely related to moderate protein calorie malnutrition (11) iron deficiency anemia-monitor (12) hypomagnesemia-improved (13) generalized anxiety disorder continue with current medications (14) depression-continue with home medications (15) bladder spasms-continue with home medications Urinary Catheter Management Urinary Catheter Management Pure Wick: Cath placed during this visit: yes, but has since been removed by the nurse Urethral indwelling: No Insertion date: 12/31/24 Insertion time: 06:15 Removal date: 12/29/24 Removal time: 18:30
--- NOTE | 2024-12-31 09:15 | PT.DAILY ---
Physical Therapy Daily Note PT Daily Note/Assess Start: 12/25/24 11:14 Freq: Status: Active Protocol: Document 12/31/24 09:10 URBANO (Rec: 12/31/24 09:14 [id number]) Physical Therapy Daily Note/Assessment Time In/Time Out Time In 08:50 Time Out 09:08 Pain In Pain N/A Pain Out Pain N/A Subjective Subjective Pt supine upon arrival. Agreeable to PT. Cont to c/o L LE pain with activity. Therapeutic Exercise Time Therapeutic Exercise 5 Minutes (minutes) Therapeutic Exercise 0 Units Therapeutic Exercise Treatment Therapeutic Exercise AA/PROM LE ther ex to improve mobility prior to Treatment transfer -10x ea. Therapeutic Activity Time Therapeutic Activity 10 Minutes (minutes) Therapeutic Activity 1 Units Therapeutic Activity Treatment Bed Mobility Ability Maximum Assist Therapeutic Activity Supine>sit MaxA - vc/edu for segmental transfer while Comments rolling to side lying, getting legs off bed, then assisting with push off to sitting position. Cont to require maxA for all movements. Pt sits EOB 5 min with Min-ModA for support due to posterior lean. Pt able to performs AP and LAQ while sitting EOB. Pt's hair is brushed. Pt is returned to supine with MaxA. Total assist of 2 to slide pt up in bed. 2 pillows placed under bilat LEs to off load heels. Call light within reach and needs met. Total Physical Therapy Time Total Therapy 15 Minutes Total Physical 1 Therapy Units Summary Daily Note Summary Less assistance needed for bed mobility today. Would benefit greatly from SNF to regain strength.
[2024-12-31 09:43] VITALS: BMI 36.9
--- NOTE | 2024-12-31 10:02 | PC.NURSE ---
Report called to Yolande at [facility]
== END 2024-12-31 10:39 ==
LOC: ER 19:03 → MS 12-26 14:21
PROVIDERS: Registered Nurse; Admitting Provider Family Medicine; Emergency Provider Emergency Medicine; PCP Nurse Practitioner; Visit Provider Family Medicine
DX: N39.0 Urinary tract infection, site not specified (principal); R53.1 Weakness; R79.89 Other specified abnormal findings of blood chemistry; Z87.820 Personal history of traumatic brain injury; Z99.3 Dependence on wheelchair; M79.605 Pain in left leg; G89.29 Other chronic pain; Z79.899 Other long term (current) drug therapy; F33.9 Major depressive disorder, recurrent, unspecified; G35 Multiple sclerosis; S89.301D Unspecified physeal fracture of lower end of right fibula, subsequent encounter for fracture with routine healing; G40.909 Epilepsy, unspecified, not intractable, without status epilepticus; B96.1 Klebsiella pneumoniae [K. pneumoniae] as the cause of diseases classified elsewhere; W19.XXXD Unspecified fall, subsequent encounter; Z91.81 History of falling; E44.0 Moderate protein-calorie malnutrition; E66.01 Morbid (severe) obesity due to excess calories; D50.9 Iron deficiency anemia, unspecified; E83.42 Hypomagnesemia; F41.1 Generalized anxiety disorder; N32.89 Other specified disorders of bladder; Z68.36 Body mass index [BMI] 36.0-36.9, adult
CPT/HCPCS: 36415; 71045; 71275; 80053; 81001; 83735; 83880; 84484; 85025; 85378; 87086; 87150; 87186; 87804; 87811; 93970; 94761; 96365; 96366; 96372; 96375; 96376; 97110; 97161; 97165; 97530; 97535; 99285; G0378; J0696; J1650; J2405; Q9967

== ENCOUNTER 2025-07-30 17:24 | Observation (INO) | payer MEDICARE, SELFPAY ==
--- OUTSIDE RECORDS SUMMARY | 2024-07-17 06:00 | XMS_ITS ---
Author Organization The [facility] in [place] Address [address] [place] [address] Care Team Providers Care Compactor Driver Name Role Phone None, Unknown or Primary Care Provider Unavailab Bubba Arellano [phone] REASON FOR VISIT ER F/U fx rt ankle Encounters Encounter Location Date Provider Diagnosis [facility] (PODIATRY) [address] [place] [address] 07/17/2024 Bubba Aguirre Plan Of Treatment No Information Progress Notes * Dejah WATSON LDOB:[birth year] (65 yo F)Acc No.[id number]:07/17/2024 UNLOCKED PROGRESS NOTE New Patient Patient: Stacia DOMINGUEZ Dejah Kendell :?Bubba Aguirre DPM, MSDOB:1960???Age: 64 Y???Sex:FemaleDate:4Phone:[phone]:[address], [id number]:Unknown or None Subjective: * Chief Complaints: * 1 . ER F/U fx rt ankle. * Medical History: Objective: * Vitals: Assessment: Plan: * Treatment: * * Electronic signature of Bubba Aguirre DPM on 07/30/2025 at 05:30 PM EDTSign off status: PendingVisit Status:?CANC (Cancelled) * Provider: Charley Aguirre DPM, MS Date: Generated for Printing/Faxing/eTransmitting on:?07/30/2025 05:30 PM EDT
--- OUTSIDE RECORDS SUMMARY | 2024-07-17 06:00 | XMS_ITS ---
Author Organization The [facility] in [place] Address [address] [place] [address] Care Team Providers Care Bakelite Molder Name Role Phone None, Unknown or Primary Care Provider Unavailab Bubba Arellano [phone] REASON FOR VISIT ER F/U fx rt ankle Encounters Encounter Location Date Provider Diagnosis [facility] (PODIATRY) [address] [place] [address] 07/17/2024 Bubba Aguirre Plan Of Treatment No Information Progress Notes * Dejah WATSON LDOB:[birth year] (65 yo F)Acc No.[id number]:07/17/2024 UNLOCKED PROGRESS NOTE New Patient Patient: Stacia DOMINGUEZ Dejah Kendell :?Bubba Aguirre DPM, MSDOB:1960???Age: 64 Y???Sex:FemaleDate:4Phone:[phone]:[address], [id number]:Unknown or None Subjective: * Chief Complaints: * 1 . ER F/U fx rt ankle. * Medical History: Objective: * Vitals: Assessment: Plan: * Treatment: * * Electronic signature of Bubba Aguirre DPM on 07/31/2025 at 08:01 AM EDTSign off status: PendingVisit Status:?CANC (Cancelled) * Provider: Charley Aguirre DPM, MS Date: 1 Generated for Printing/Faxing/eTransmitting on:?07/31/2025 08:01 AM EDT
--- OUTSIDE RECORDS SUMMARY | 2024-09-24 07:30 | XMS_ITS ---
Author Organization [facility] Address [address] [place] [address] Care Team Providers Care Spin Table Operator Name Role Phone Alvin WOODSON, Yandy Primary Care Provider Benton Goodwin Unavailable [phone] Benton Moreno Unavailable [phone] Results Component Value Reference Range Notes SCC- ANKLE 3 VIEW RIGHT 7361 0 Reviewed date:10/16/2024 03:25:54 PM Interpretation: Performing Lab: Notes/Report: REASON FOR VISIT RIGHT DSITAL FIB FX Medications Medication SIG (Take, Route, Frequency, Duration) Notes Start Date End Date Status Namenda UnknownXanaxUnknownLyricaUnknownDepakote (obsolete)UnknownVicodinUnknownPROzac UnknownpropranololUnknownbaclofenUnknown Encounters Encounter Location Date Provider Diagnosis [facility] [address] [place] [address] [place] [address] 09/24/2024 Benton Moreno Other closed fracture of distal end of right fibula, initial encounter S82.831A Assessments Encounter Date Diagnosis (ICD Code) Assessment Notes Treatment Notes Treatment Clinical Notes Section Notes 09/24/2024 Other closed fractur e of distal end of right fibula, initial encounter (ICD-10 - S82.831A) Plan Of Treatment No Information Progress Notes * CARINE WATSON LDOB:[birth year] (65 yo F)Acc No.[id number]:09/24/2024 Patient:?CARINE WATSON :?Benton Moreno MDDOB:1960???Age:64 Y ???Sex:FemaleDate:09/24/2024hone:[phone]:[address], [place], [id number]:Yandy Esquivel MD Subjective: * Chief Complaints: * 1 . RIGHT DSITAL FIB FX. * Medical History: * Medications: U nknown Depakote (obsolete) , Unknown Lyrica , Unknown Xanax , Unknown Namenda , Unknown baclofen , Unknown propranolol , Unknown PROzac , Unknown Vicodin Objective: * Vitals: Assessment: * Assessment: 1.?Other closed fracture of distal end of right fibula, initial encounter - [id number]? ? Plan: * Treatment: ?Imaging: SCC- ANKLE 3 VIEW RIGHT [address] (Performed Date - 10/16/2024) Forms: * Images: * Electronic signature of Benton Moreno MD on 07/30/2025 at 05:31 PM EDTSign off status: Pending * Provider: Alberto Moreno MD Date: 1 11/25/2023 Generated for Printing/Faxing/eTransmitting on:?07/30/2025 05:31 PM EDT
--- OUTSIDE RECORDS SUMMARY | 2024-09-24 07:30 | XMS_ITS ---
Author Organization [facility] Address [address] [place] [address] Care Team Providers Care Shale Miner Name Role Phone Alvin WOODSNO, Yandy Primary Care Provider Benton Goodwin Unavailable [phone] Benton Moreno Unavailable [phone] Results Component Value Reference Range Notes SCC- ANKLE 3 VIEW RIGHT [id number] 0 Reviewed date:10/16/2024 03:25:54 PM Interpretation: Performing Lab: Notes/Report: REASON FOR VISIT RIGHT DSITAL FIB FX Medications Medication SIG (Take, Route, Frequency, Duration) Notes Start Date End Date Status Namenda UnknownXanaxUnknownLyricaUnknownDepakote (obsolete)UnknownVicodinUnknownPROzac UnknownpropranololUnknownbaclofenUnknown Encounters Encounter Location Date Provider Diagnosis [facility] Office [address] [place] [address] [place] [address] 09/24/2024 Benton Moreno Other closed fracture of distal end of right fibula, initial encounter S82.831A Assessments Encounter Date Diagnosis (ICD Code) Assessment Notes Treatment Notes Treatment Clinical Notes Section Notes 09/24/2024 Other closed fractur e of distal end of right fibula, initial encounter (ICD-10 - S82.831A) Plan Of Treatment No Information Progress Notes * CARINE WATSON LDOB:[birth year] (65 yo F)Acc No.[id number]:09/24/2024 Patient:?CARINE WATSON :?Benton Moreno MDDOB:1960???Age:64 Y ???Sex:FemaleDate:09/24/2024hone:[phone]:[address], [place], [id number]:Yandy Esquivel MD Subjective: * Chief Complaints: * 1 . RIGHT DSITAL FIB FX. * Medical History: * Medications: U nknown Depakote (obsolete) , Unknown Lyrica , Unknown Xanax , Unknown Namenda , Unknown baclofen , Unknown propranolol , Unknown PROzac , Unknown Vicodin Objective: * Vitals: Assessment: * Assessment: 1.?Other closed fracture of distal end of right fibula, initial encounter - [id number]? ? Plan: * Treatment: ?Imaging: SCC- ANKLE 3 VIEW RIGHT [id number] (Performed Date - 10/16/2024) Forms: * Images: * Electronic signature of Benton Moreno MD on 07/31/2025 at 08:01 AM EDTSign off status: Pending * Provider: Alberto Moreno MD Date: 1 11/25/2023 Generated for Printing/Faxing/eTransmitting on:?07/31/2025 08:01 AM EDT
[2025-07-30 17:26] VITALS: BP 121/67; PULSE 90; TEMP 36.7; O2SAT 96; BMI 42.2
--- OUTSIDE RECORDS SUMMARY | 2025-07-30 17:30 | XMS_ITS | Clinical Summary ---
Author Organization [facility] Address [address] [place] [id number] Care Team Providers Care Senior Integration Architect Name Role Phone Emanuel Summers MD Primary Care Provider [phone] Breanna Grubbs PA-C Unavailable Unavailable Allergies Active AllergyReactionsCriticalityNoted YerlVfskzqvsZxstaKwcr20/21/2020 Penicillin GRash,Ltlxzoi7111/30/20198842Zbgfkl-Kwzs-AydmxrpjpnunuED Upset11/30/2019 GI Bleed Medications MedicationSigDispense QuantityRefillsLast FilledStart DateEnd DateStatus ALPRAZolam (XANAX) 0.5 mg tablet Take 0.5 mg by mouth at bedtime as needed.Active furosemide (LASIX) 40 mg tablet Take 40 mg by mouth twice daily.Active baclofen (LIORESAL) 10 mg tablet Take 10 mg by mouth three times daily.Active divalproex DR (DEPAKOTE) 250 mg EC tablet Take 250 mg by mouth three times daily.Active BABY ASPIRIN ORAL Take by mouth.Active Biotin 10,000 mcg cap Take by mouth.Active Fluocinolone Acetonide 0.01 % sham Apply to affected area.Active SUMAtriptan (IMITREX) 25 mg tablet Take 25 mg by mouth as needed.Active albuterol HFA (PROVENTIL HFA, VENTOLIN HFA) 90 mcg/actuation inhaler 10/18/2019Active fluticasone (FLONASE) 50 mcg/actuation nasal spray 11/13/2019Active meloxicam (MOBIC) 7.5 mg tablet Take 7.5 mg by mouth once daily.11/25/2019Active NYAMYC powder 08/22/2019Active OXcarbazepine (TRILEPTAL) 300 mg tablet 11/07/2019Active oxybutynin ER (DITROPAN XL) 10 mg 24 hr tablet on HOLD (12-13-2019) per mother 09/11/2019Active pantoprazole DR (PROTONIX) 40 mg tablet 09/17/2019Active prednisoLONE (PRELONE) 15 mg/5 mL syrup Takes as needed-NOT using now (12-13-2019) 11/13/2019Active pregabalin (LYRICA) 150 mg capsule 11/02/2019Active acetaminophen (TYLENOL) 325 mg tablet Take 2 tablets by mouth every 4 hours as needed for Pain or Fever. 50 tablet 11/30/2019Active ibuprofen (MOTRIN) 400 mg tablet Take 400 mg by mouth every 6 hours as needed.Active fluticasone propion/salmeterol (ADVAIR DISKUS INHALATION) Inhale as instructed. patient uses prnActive Ketoconazole 1 % sham Apply to affected area.Active calcium carbonate (TUMS) 500 mg chew Take by mouth as needed.Active meclizine (ANTIVERT) 25 mg tab Take 1 tablet by mouth as needed.07/01/2021ctive DULoxetine (CYMBALTA) 30 mg capsule Take 30 mg by mouth once daily.07/01/2021ctive Active Problems ProblemNoted DateDiagnosed DateObesity, Class III, BMI >= 4011Left wrist ikdywhsk19/12/2020Pain in left wrist12/20/2019 Encounters DateTypeDepartmentCare FsfvVmddpabexzi32/29/2025 [place] [address] Provider, [facility] Medicare Coverage of Physical Examsfrom Last 3 Months Family History Medical HistoryRelationCommentsMVABrotherlupusMotherMultiple SclerosisNo Family HistoryRelationStatusCommentsBrotherDeceasedFatherAliveMotherAlive Social History Tobacco UseTypesPacks/DayYears UsedDateSmoking Tobacco: NeverSmokeless Tobacco: NeverAlcohol UseStandard Drinks/WeekCommentsYes0 (1 standard drink = 0.6 oz pure alcohol)once a year-1 or 2 drinksPHQ-2AnswerDate RecordedPHQ-2 rpuoa215 Area Deprivation IndexAnswerDate RecordedNational Score (1-100), lower number is lower prob619011/07/2022State Score (1-10), lower number is lower riskNot on file 3Data from: https://www.neighborhoodatlas.medicine.[facility].edu/. Last address used for myl[address]CommentsNoSex and Gender InformationValueDate RecordedSex Assigned at BirthNot on fileLegal Sex Ylrfsc8111/08/2019 1:26 PM ESTGender IdentityNot on fileSexual OrientationNot on file Last Filed Vital Signs Vital SignReadingTime TakenCommentsBlood Fdurwpqa157/8610/05/2021 1:00 PM EST Coviu978810/05/2021 1:00 PM ZMVOesxyxkaabt91.7 ??C (96.3 ??F)12/14/2019 4:49 PM ESTRespiratory Jalx477612/14/2019 4:49 PM ESTOxygen Snqxwqvhgr82%12/14/2019 4:49 PM ESTInhaled Oxygen Concentration--Fxalul347.8 kg (273 lb)10/05/2021 1:00 PM UPCMpzbsx711.4 cm (5' 5.5 )10/05/2021 1:00 PM ESTBody Mass Index44.7410/05/2021 1:00 PM EST Plan of Treatment Health MaintenanceDue DateLast DoneCommentsAnxiety Zbbnyjgwo98/29/1978Depression Vhbypernb02/29/1978HIV Edcjxdook45/29/1978Hepatitis C Yfambtyjc69/29/1978 Mammogram Qanabtaao93/29/2000CT Qpecdtevuybw43/29/2005Cologuard (FIT-DNA) 05/07/20053701Wtjthpybhpk91/29/2005Colorectal Cancer Ypdtedtgk14/29/2005Fecal Occult Blood2005Lipid Gktlkjxim39/29/9136Utrxspmobtieq59/29/2005Shingrix Vaccine (1 of 2)2010Pneumococcal Vaccine: 50+ (2 of 2 - PCV) Diabetes Gwjwloenc89/27/73208012/06/2020, 10/05/2021, 12/11/2019Advance Directive Iqhagyhfbe59/29/2025Bone Density Rrhvngapb22/29/2025Covid-19 Vaccine (3 - 2025- 26 season), 02/04/2021Influenza Vaccine (#1)2025 06/05/2020, 06/01/2019, 06/06/2018, Additional history existsDTaP,Tdap,Td Vaccine (2 - Td or Tdap)RSV Vaccine (1 - 1-dose 75+ series) 2035 Medical Devices ImplantedTypeAreaManufacturerDevice IdentifierShelf Expiration DateModel / Serial / LotPlate Lcp Standard Stainless Steel [id number] Bone 6x3 Hole 2 Column Variable - [id number] Implanted:12/14/2019 at [facility] (Quantity not on file)PlateLeft: Bone - WristSYNTHES modu SYNTHES [id number] / / Screw Lcp 2.4mm T8 Stainless Steel 14mm Bone Variable Angle Lock Self Tap - [id number] Implanted:12/14/2019 at [facility] (Quantity not on file)ScrewLeft: Bone - WristSYNTHES [id number] / / Screw Lcp 2.4mm T8 Stainless Steel 18mm Bone Variable Angle Lock Self Tap - [id number] Implanted:12/14/2019 at [facility] (Quantity not on file)ScrewLeft: Bone - WristSYNTHES modu SYNTHES [id number] / / Screw Lcp 2.4mm T8 Stainless Steel 20mm Bone Variable Angle Lock Self Tap - [id number] Implanted:12/14/2019 at [facility] (Quantity not on file)ScrewLeft: Bone - WristSYNTHES modu SYNTHES [id number] / / Screw Lcp 2.7mm T8 Stainless Steel 14mm Bone Stardrive Self Tap Modular - [id number] Implanted:12/14/2019 at [facility] (Quantity not on file)ScrewLeft: Bone - WristSYNTHES modu SYNTHES [id number] / / Screw Lcp 2.7mm T8 Stainless Steel 16mm Bone Stardrive Self Tap Modular - [id number] Implanted:12/14/2019 at [facility] (Quantity not on file)ScrewLeft: Bone - WristSYNTHES modu SYNTHES [id number] / / Procedures Procedure NamePriorityDate/TimeAssociated DiagnosisCommentsCOMPREHENSIVE METABOLIC WTKWCHxrqzwo90/27/2021 4:26 PM EST Neuropathic pain from Last 3 Months or Most Recently Relevant to Health Maintenance Results * (ABNORMAL) COMP METABOLIC PANEL (10/05/2021 4:26 PM EST)ComponentValueRef RangeTest MethodAnalysis TimePerformed AtPathologist SignatureProtein, Total 6.96.3 - 8.0 g/dL10/05/2021 7:32 PM [facility] LaboratoriesAlbumin4.3 3.9 - 4.9 g/dL10/05/2021 7:32 PM [facility] LaboratoriesCalcium9.58.5 - 10.2 mg/dL10/05/2021 7:32 PM [facility] LaboratoriesBilirubin, Total0.30.2 - 1.3 mg/dL10/05/2021 7:32 PM [facility] Alkaline Uciluturvmc1874 - 123 U/L112/06/2020 7:32 PM [facility] YvqazqfuqwzaBKP1177 - 35 U/L112/06/2020 7:32 PM [facility] JrkxqbmfuddoZjjahoc303(H)74 - 99 mg/dL10/05/2021 7:32 PM [facility] LaboratoriesComment: The [place] Diabetes Association (ADA) provides guidance for cutoff values for fasting glucose and random glucose. The ADA defines fasting as no caloric intake for at least 8 hours. Fasting plasma glucose results between 100 to 125 mg/dL indicate increased risk for diabetes (prediabetes). Fasting plasma glucose results greater than or equal to 126 mg/dL meet the criteria for diagnosis of diabetes. In the absence of unequivocal hyperglycemia, results should be confirmed by repeat testing. In a patient with classic symptoms of hyperglycemia or hyperglycemic crisis, random plasma glucose results greater than or equal to 200 mg/dL meet the criteria for diagnosis of diabetes. Reference: Standards of Medical Care in Diabetes 2016, [place] Diabetes Association. Diabetes Care. 2016.39(Suppl 1). TWO199 - 21 mg/dL10/05/2021 7:32 PM [facility] LaboratoriesCreatinine 0.740.58 - 0.96 mg/dL10/05/2021 7:32 PM [facility] LaboratoriesSodium 772091 - 144 mmol/L112/06/2020 7:32 PM [facility] LaboratoriesPotassium 4.53.7 - 5.1 mmol/L112/06/2020 7:32 PM [facility] LaboratoriesChloride 27319 - 105 mmol/L112/06/2020 7:32 PM [facility] SnqfviymqayyKZ89928 - 30 mmol/L112/06/2020 7:32 PM [facility] LaboratoriesAnion Zbu143 - 18 mmol/L112/06/2020 7:32 PM [facility] FinbzsdkbeohUOR401 - 38 U/L 10/05/2021 7:32 PM [facility] LaboratorieseGFR->60 10/05/2021 7:32 PM [facility] LaboratorieseGFR-All Other Races>60. 10/05/2021 7:32 PM [facility] LaboratoriesComment: eGFR (Estimated GFR) Units of measure: mL/min/1.73 meters squared eGFR is derived from the reexpressed MDRD Study equation using the following parameters: serum creatinine, age, gender and race. The creatinine assay has been calibrated to be traceable to IDMS. An eGFR <60 mL/min/1.73m2 for >3 months is consistent with chronic kidney disease. Refer to KDOQI guidelines for clinical interpretation. In patients with unstable renal function, e.g. those with acute kidney injury, the eGFR may not accurately reflect actual GFR. Note: On 12/05/2021, the eGFR calculation will be updated to the NKF-ASN Task Force recommended 2020 CKD-EPI creatinine equation which does not include a race variable. For more information or to access a 2020 CKD-EPI calculator, visit the National Kidney Foundation website at kidney.org/professionals/kdoqi/gfr_calculator. Specimen (Source)Anatomical Location / LateralityCollection Method / Volume Collection TimeReceived TimeBloodOTHER / Avtxrsu6210/05/2021 4:26 PM EST10/05/2021 4:28 PM EST Narrative Authorizing ProviderResult TypeResult StatusJustin R Saw MDLABORATORY Final ResultPerforming OrganizationAddressCity/State/ZIP CodePhone Number [facility] [address] [place] [address] [facility] [address] [place] [address] from Last 3 Months or Most Recently Relevant to Health Maintenance Insurance Advance Directives TypeDate RecordedPatient RepresentativeExplanationAdvance Directive(s)12/14/2019 7:43 AMAdvance Directive(s)12/13/2019 2:10 PM Care Teams Team MemberRelationshipSpecialtyStart DateEnd Date Emanuel Summers MD [address] [place] [address] PCP - GeneralFamily Medicine11/08/19 Breanna Grubbs PA-C [address] [place] [address] Referring QgwdRdroiwqiy67/6/21
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
--- OUTSIDE RECORDS SUMMARY | 2025-07-30 17:31 | XMS_ITS | Patient Health Record ---
Author Organization [facility] [place] Address [address] [place] [address] Care Team Providers Care Clinical Scientist Name Role Phone None, Unknown or Primary Care Provider Unavailab le Reason For Referral No Information Problems Problem Type SNOMED Code ICD Code Onset Dates Problem Status W/U Status Risk Notes Problem Anemia (153789947) Anemia, unspecified (D 64.9) ActiveconfirmedProblemGeneralized anxiety disorder (80495039)Generalized anxiety disorder (F41.1)ActiveconfirmedProblemMultiple sclerosis (43304793)Multiple sclerosis (G35)ActiveconfirmedProblemMononeuropathy of lower limb (040893608) Unspecified mononeuropathy of left lower limb (G57.92)ActiveconfirmedProblem Constipation (12678591)Constipation, unspecified (K59.00)ActiveconfirmedProblem Overactive bladder (576782010)Overactive bladder (N32.81)ActiveconfirmedProblem Seizure disorder (684390821)Seizure disorder (G40.909)Activeconfirmed Plan Of Treatment No Information Insurance Providers Payer Name Payer Address Payer Phone Subscriber Number Group Number Insured Name Patient Relationship to Insured Coverage Start Date Coverage End Date AET[employer] BRUCE STRATTON [address] [place] [address] [id number] Vijay Diaz - patient is the [id number] 2023
--- OUTSIDE RECORDS SUMMARY | 2025-07-30 17:31 | XMS_ITS | Clinical Summary ---
Author Organization [employer] [facility] Address [facility] [address] [place] [address] Care Team Providers Care Guide Tour Name Role Phone Pcp, Not In System Primary Care Provider Unavail able Allergies Active AllergyReactionsCriticalityNoted QjctWjepprxnOhrbn34/27/2024enicillins 09/05/20243613Zjlacwtmx71/27/2024 Medications MedicationSigDispense QuantityRefillsLast FilledStart DateEnd DateStatus fluticasone propion-salmeteroL (ADVAIR DISKUS) 100-50 mcg/dose DISKUS Inhale 1 puff in the morning and 1 puff before bedtime.02/08/2024ctive divalproex (DEPAKOTE ER) 250 mg 24 hr tablet Take 1 tablet (250 mg total) by mouth 4 (four) times a day.07/03/2024ctive DULoxetine (CYMBALTA) 60 mg capsule Take 1 capsule (60 mg total) by mouth in the morning.05/16/2024ctive DULoxetine (CYMBALTA) 20 mg capsule Take 1 capsule (20 mg total) by mouth in the morning.07/03/2024ctive fluocinolone 0.01 % shampoo Apply topically.Active fluticasone propionate (FLONASE) 50 mcg/actuation nasal spray 1 spray in the morning.Active furosemide (LASIX) 40 mg tablet Take 1 tablet (40 mg total) by mouth daily.Active ibuprofen (MOTRIN) 400 mg tablet Take 1 tablet (400 mg total) by mouth every 6 (six) hours as needed.Active HYDROcodone-acetaminophen (NORCO) 5-325 mg per tablet Take by mouth.11/18/2023ctive meloxicam (MOBIC) 7.5 mg tablet Take 1 tablet (7.5 mg total) by mouth in the morning.05/10/2024ctive OXcarbazepine (TRILEPTAL) 300 mg tablet Take 1 tablet (300 mg total) by mouth once daily.01/26/2024ctive ketoconazole 1 % shampoo Apply topically.Active pantoprazole (PROTONIX) 40 mg EC tablet Take 1 tablet (40 mg total) by mouth in the morning and 1 tablet (40 mg total) before bedtime.Active pregabalin (LYRICA) 100 mg capsule Take 1 capsule (100 mg total) by mouth in the morning and 1 capsule (100 mg total) before bedtime.06/26/2024ctive pregabalin (LYRICA) 75 mg capsule Take 1 capsule (75 mg total) by mouth in the morning and 1 capsule (75 mg total) before bedtime.06/26/2024ctive sucralfate (CARAFATE) 100 mg/mL suspension Take 10 mL (1,000 mg total) by mouth in the morning and 10 mL (1,000 mg total) at noon and 10 mL (1,000 mg total) in the evening and 10 mL (1,000 mg total) before bedtime.Active SUMAtriptan (IMITREX) 25 mg tablet Take 1 tablet (25 mg total) by mouth.11/10/2023ctive tiZANidine (ZANAFLEX) 4 mg capsule Take 1 capsule (4 mg total) by mouth 3 (three) times a day.05/22/2024ctive traMADoL (ULTRAM) 50 mg tablet Take 1 tablet (50 mg total) by mouth every 12 (twelve) hours as needed. 07/03/2024ctive Social History Tobacco UseTypesPacks/DayYears UsedDateSmoking Tobacco: Never AssessedChildcare AnswerDate QcnmgdfjNzfbeatzmToyonit85/12/2019EmploymentAnswerDate Recorded XbitxssbqpDodnkgh61/12/2019Hunger ScreeningAnswerDate RecordedWithin the past 12 months we worried whether our food would run out before we got money to buy more.Never True09/05/2024Within the past 12 months the food we bought just didn't last and we didn't have money to get more.Never True09/05/2024 CommentsNoSex and Gender InformationValueDate RecordedSex Assigned at BirthNot on fileLegal DheQedrek92/06/2015 11:29 AM EDTGender IdentityNot on fileSexual OrientationNot on file Last Filed Vital Signs Vital SignReadingTime TakenCommentsBlood Zejqpmim423/5909/05/2024 2:11 PM EST Rqopk856509/05/2024 12:52 PM ESTTemperature--Respiratory Cskw193811/05/2023 12:52 PM ESTOxygen Tdpoewqbkt85%09/05/2024 1:26 PM ESTInhaled Oxygen Concentration-- Ywocca625.9 kg (240 lb)09/05/2024 12:52 PM DRSXctzoy401.6 cm (5' 4 )09/05/2024 12:52 PM ESTBody Mass Index41. 12:52 PM EST Plan of Treatment Health MaintenanceDue DateLast DoneCommentsDepression Ttcspgndp05/29/1972Tobacco Vjceopbvs25/29/1972Adult BMI Follow Up Plan1978Zoster (Shingles) Vaccine (1 of 2)2010Fall Risk Hscdjoqxu13/29/2025COVID-19 Vaccine ( season)/, 12/24/2021, 03/06/2021, Additional history exists Influenza Blkkzrl45/01/2024, 05/25/2022, 06/05/2020, Additional history existsAdult BMI Zivpblafw77/4DTaP,Tdap and Td Vaccines (2 - Td or Tdap) Medical Devices Not on file Insurance Care Teams Team MemberRelationshipSpecialtyStart DateEnd Date Pcp, [place] [address] [facility]
--- OUTSIDE RECORDS SUMMARY | 2025-07-30 17:32 | XMS_ITS | Patient Health Record ---
Author Organization [facility] Address [address] [place] [address] Care Team Providers Care Salon Assistant Name Role Phone Yandy Esquivel MD Primary Care Provider Benton Goodwin Unavailable [phone] Benton Moreno Unavailable [phone] Hermila Haas Unavailable Allergies Allergen (clinical drug ingredient) Drug/Non Drug Allergy documented on EMR Reaction Allergy Type Onset Date Status VioxxUnknownDrug AllergyActivePenicillinUnknownDrug AllergyActivepromethazine PhenerganUnknownDrug AllergyActive Results Component Value Reference Range Notes SCC- ANKLE 3 VIEW RIGHT 7361 0 Reviewed date:10/31/2024 02:16:24 PM Interpretation: Performing Lab: Notes/Report: Reason For Referral No Information Medications Medication SIG (Take, Route, Frequency, Duration) Notes Start Date End Date Status PROzac UnknownpropranololUnknownbaclofenUnknownpropanololUnknownNamendaUnknownXanax UnknownLyricaUnknownDepakote (obsolete)UnknownVicodinUnknown Social History Tobacco Use: Social History Observation Description Date Details (start date - stop date) Never Smoker NA - NA AUDIT-C (Standard) Question Answer Notes Did you have a drink containing alcohol in the p ast year? No Giypbj2XrrckdcbfncmiqQkbbqpbfRkrnlcq Control (Standard) Question Answer Notes Tobacco use: Nonsmoker Problems Problem Type SNOMED Code ICD Code Onset Dates Problem Status W/U Status Risk Notes Problem Sprain of wrist (43422067) Sprain of wris t NOS (842.00) Activeconfirmed Vital Signs Height 5 ft 5 in in 08/27/2024 Jzyxcb045 lbs11MI39.9308/27/2024 Encounters Encounter Location Date Provider Diagnosis [facility] [address] [place] [address] 07/30/2024 Hermila Haas Other closed fracture of distal end of right fibula, initial encounter S82.831A [facility] [address] [facility] [place] [address] [place] [address] 08/27/2024 Hermila Haas Other closed fracture of distal end of right fibula, initial encounter S82.831A Assessments Encounter Date Diagnosis (ICD Code) Assessment Notes Treatment Notes Treatment Clinical Notes Section Notes 07/30/2024 Other closed fractur e of distal end of right fibula, initial encounter (ICD-10 - S82.831A) 08/27/2024Other closed fracture of distal end of right fibula, initial encounter (ICD-10 - S82.831A)07/30/2024OtherFor the patient's distal fibula fracture she will remain in the cam walking boot and be weight-bearas tolerated. She will continue to work with physical therapy. She is eager to go home and is working with the [place] towards this goal. We will see her back in 4 weeks to repeat x- rays and reassessher progress.08/27/2024OtherPatient's pain has improved and given she feels she cannot ambulate as the boot is too heavy I haverecommended weaning into a normal supportive shoe and starting to bear weight as tolerated. I discussed again with patient and her mother that I am not in charge of discharging her from the SNF. She will continue with physical therapy we will see her back in 4 weeks to repeat x-ray and reassess herprogress. Plan Of Treatment Pending Test Test Name Order Date SCC- ANKLE 3 VIEW RIGHT [id number] 07/30/2024 Insurance Providers Payer Name Payer Address Payer Phone Subscriber Number Group Number Insured Name Patient Relationship to Insured Coverage Start Date Coverage End Date Medicare Aetna [address] [place] [address] [id number] Moody WATSON - patient [place] [id number], JONETTESelf - patient is the insured Medical (General) History Medical History History ICD Code Asthma/COPD: YES, Respiratory problems: YES,Lung Disease: No,Cancer: No,Problems with Anesthesia: No,Malignant Hyperthermia: No,Heart Attack: No,Heart problems: No, Hypothyroidism: No,Seizures: YES,Diabetes: No,GI Problems: YES,Stroke: No,Blood Clot: YES,High Blood Pressure: No,Depression: YES,Mental Illness: No,Anxiety: YES,Have you ever had or presently have MRSA? No,Hepatitis YES,Have you been in close contact with someone who has had MRSA within the last year? No,Pacemaker or AICD: No,Latex Allergies: No,Drug Allergies: YES,
--- NOTE | 2025-07-30 18:02 | ED.GENADUL1 ---
HPI HPI - General Adult General Chief complaint: Recheck/Abnormal Lab/Rx Stated complaint: other Time Seen by Provider: 07/30/25 17:31 Source: patient Mode of arrival: ambulance Limitations: no limitations History of Present Illness HPI narrative: The patient is 65-year-old female with history of MS and bilateral lower extremity weakness she is dependent on her mother who is 85 years old and take care of her at home. The patient called the ambulance today after her mother got admitted to the hospital because she fell down and hurt her back The patient is wheelchair-bound and she was admitted in December of this year when she was placed for assisted and [facility] Related Data Home Medications ?Medication ?Instructions ?Recorded ?Confirmed duloxetine 20 mg capsule,delayed 20 mg PO BID 11/15/23 07/30/25 release duloxetine 60 mg capsule,delayed 60 mg PO BEDTIME 11/15/23 07/30/25 release oxybutynin chloride 15 mg 15 mg PO DAILY 11/15/23 07/30/25 tablet,extended release 24 hr divalproex 250 mg tablet,extended 250 mg PO QID 07/12/24 07/30/25 release 24 hr baclofen 10 mg tablet 10 mg PO TID 07/30/25 07/30/25 levothyroxine 50 mcg tablet 50 mcg PO DAILY 07/30/25 07/30/25 oxcarbazepine 600 mg tablet 600 mg PO .qhs 07/30/25 07/30/25 Previous Rx's ?Medication ?Instructions ?Recorded alprazolam 0.5 mg tablet 0.5 mg PO TID PRN anxiety 2 days 08/01/25 #6 tabs alprazolam 0.5 mg tablet (Xanax) 0.5 mg PO TID PRN anxiety 2 days 08/01/25 #6 tabs pregabalin 150 mg capsule 150 mg PO BID 2 days #4 caps 08/01/25 pregabalin 75 mg capsule 150 mg (2 x 75 mg) PO BID 2 days 08/01/25 #8 caps tramadol 50 mg tablet 50 mg PO Q12H PRN Pain 2 days #4 08/01/25 tabs tramadol 50 mg tablet 50 mg PO Q12H PRN pain 2 days #4 08/01/25 tabs Allergies Allergy/AdvReac Type Severity Reaction Status Date / Time latex Allergy Mild Hives Verified 12/23/24 16:43 Penicillins Allergy Mild Rash Verified 12/23/24 16:43 rofecoxib (From Vioxx) Allergy Mild Rash Verified 12/23/24 16:43 Opioid HPI Opioid Management Most Recent Opioid Data: Last Pain Scale 5 08/01/25, 10:08 Last Pain Intensity 0 08/01/25, 10:04 Last Pain Assessment 08/01/25, 16:33 Last MAR Pain Assessment 08/01/25, 09:42 Last ORT Total Score 0 07/30/25, 18:43 Last ORT Risk Category Low Risk 07/30/25, 18:43 Review of Systems ROS Status of ROS 10 or more systems reviewed and unremarkable except as noted in history and below PFSH [facility] Medical History (Updated 08/05/25 @ 00:00 by ) Multiple sclerosis ?G35 - Multiple sclerosis (ICD-10) Seizure disorder ?G40.909 - Epilepsy, unspecified, not intractable, without status epilepticus (ICD-10) Poor social situation ?Z60.9 - Problem related to social environment, unspecified (ICD-10) Contusion of knee ?S80.00XA - Contusion of unspecified knee, initial encounter (ICD-10) Ankle pain ?M25.579 - Pain in unspecified ankle and joints of unspecified foot (ICD-10) Fall ?W19.XXXA - Unspecified fall, initial encounter (ICD-10) Acute UTI ?N39.0 - Urinary tract infection, site not specified (ICD-10) Weakness of left side of body ?R53.1 - Weakness (ICD-10) Hemorrhagic stroke ?I61.9 - Nontraumatic intracerebral hemorrhage, unspecified (ICD-10) Recurrent severe major depressive disorder with anxiety ?F33.2 - Major depressive disorder, recurrent severe without psychotic features (ICD-10) ?F41.9 - Anxiety disorder, unspecified (ICD-10) UTI (urinary tract infection) ?N39.0 - Urinary tract infection, site not specified (ICD-10) Ambulatory dysfunction ?R26.2 - Difficulty in walking, not elsewhere classified (ICD-10) Fall ?W19.XXXA - Unspecified fall, initial encounter (ICD-10) Abrasion of face ?S00.81XA - Abrasion of other part of head, initial encounter (ICD-10) Fibula fracture ?S82.409A - Unspecified fracture of shaft of unspecified fibula, initial encounter for closed fracture (ICD-10) Lower extremity pain ?M79.606 - Pain in leg, unspecified (ICD-10) Back pain ?M54.9 - Dorsalgia, unspecified (ICD-10) Closed head injury ?S09.90XA - Unspecified injury of head, initial encounter (ICD-10) Contusion of face ?S00.83XA - Contusion of other part of head, initial encounter (ICD-10) Contusion of sacral region ?S30.0XXA - Contusion of lower back and pelvis, initial encounter (ICD-10) Fall ?W19.XXXA - Unspecified fall, initial encounter (ICD-10) H/O traumatic brain injury ?Z87.820 - Personal history of traumatic brain injury (ICD-10) Cat scratch fever ?A28.1 - Cat-scratch disease (ICD-10) Aneurysm ?I72.9 - Aneurysm of unspecified site (ICD-10) Arm fracture, left ?S42.302A - Unspecified fracture of shaft of humerus, left arm, initial encounter for closed fracture (ICD-10) Depression ?F32.A - Depression, unspecified (ICD-10) Anxiety ?F41.9 - Anxiety disorder, unspecified (ICD-10) DVT (deep venous thrombosis) ?I82.409 - Acute embolism and thrombosis of unspecified deep veins of unspecified lower extremity (ICD-10) Traumatic brain injury ?S06.9XAA - Unspecified intracranial injury with loss of consciousness status unknown, initial encounter (ICD-10) Surgical History Hx of tracheostomy ?Z98.890 - Other specified postprocedural states (ICD-10) Family History Grandfather Family history of CHF (congestive heart failure) Family history of cancer Aunt Family history of diabetes mellitus Family history of stroke Other Family history of COPD (chronic obstructive pulmonary disease) Social History (Updated 07/30/25 @ 19:10 by France Napoles) Within the past year, how often did you have a drink containing alcohol: never Score interpretation: A score less than 3 is consistent with normal alcohol consumption. Smoking status: Never smoker Non-prescribed substance use: denies use Previous occupational history: disabled Highest level of school completed/degree received: high school graduate Are you now , , , , never or living with a partner: never In a typical week, how many times do you talk on the telephone with family, friends, or neighbors: 3 or more times per week How often do you get together with friends or relatives: 3 or more times per week How often do you attend latter day or episcopal services: never Do you belong to any clubs or organizations such as latter day groups unions, fraternal or athletic groups, or school groups: no Total score: 1 Score interpretation: A score of less than or equal to 1 indicates the most socially isolated. Little interest or pleasure in doing things: not at all Feeling down, depressed, or hopeless: not at all Feel stressed/tense/nervous/anxious/difficulty sleeping: not at all Do you think of yourself as: straight/heterosexual Gender Identity: female Exam Narrative Exam Narrative: Nurses notes and vital signs reviewed and patient is not hypoxic. General: Well-appearing and in no apparent distress. Skin: Warm, dry, no pallor noted. No rash. Head: Normocephalic, atraumatic. Neck: Supple, non-tender. Cardiovascular: Regular Rate and Rhythm without murmur, gallop or rub. Respiratory: No accessory muscle use or respiratory distress. Lungs are clear to auscultation, no wheezing, rales or rhonchi Chest Wall: no tenderness Back: No midline thoracic or lumbar vertebral tenderness. No CVA tenderness Musculoskeletal: normal ROM, no calf or popliteal tenderness, no lower extremity edema/swelling GI: Abdomen is soft, non-distended. Normal bowel sounds. No masses appreciated. No tenderness to palpation. No rebound, guarding, or rigidity noted. Neurological: A&O x4. No cranial nerve dysfunction observed. Bilateral chronic lower extremity weakness Constitutional Vital Signs, click to edit/add: Last Vital Signs Temp 98.3 F 08/01/25 15:50 Pulse 96 H 08/01/25 15:50 Resp 16 08/01/25 15:55 BP 108/73 08/01/25 15:50 Pulse Ox 94 L 08/01/25 15:50 O2 Del Method Room Air 08/01/25 15:50 Course Course Hospital Course: This is a 64-year-old female with past medical history of traumatic brain injury 1976, multiple sclerosis, depression, history of hemorrhagic strokes before, morbid obesity, seizure, bilateral lower extremity paresis, bedbound and wheelchair dependent, anxiety, DVT, totally dependent, lives with her mom who takes care of her. Who presents today as she does not have anyone to take care of her at home. Interestingly there is a disorder record from the ED however the patient tells me when I saw her in the room that she does not know why she was here, states that someone called APS and the squad showed up to her house and took her to the hospital. She was watching TV with no nausea no vomiting no abdominal pain no SOB no chest pain no palpitations no diaphoresis no urinary or bowel symptoms. Labs in the ED were unremarkable. Vital signs were stable. Patient to be observed under hospitalist service for further assistance with placement possibly. Frailty and debility in the setting of multiple comorbidities including MS, bedbound/wheelchair-bound due to quadriplegia May need higher level of care -Observe patient to medical floor - PT/OT evaluation for possible placement - HSQ for DVT prophylaxis - Pantoprazole for DVT prophylaxis - DNR CCA without intubation, I discussed the goals of care with the patient at bedside. I will updated in the chart - I will reconcile the patient's medications once the list is updated by the nursing team - Discussed the plan with the patient in details. Answered all her questions 07/31/2025 patient and her mom are going to assisted. The issue will be a pre-CERT. She is medically for discharge once pre-CERT comes 08/01/2025 pre-CERT came through at SNF, but will be available later in the afternoon hopefully patient be discharged later Vital Signs Vital signs: Vital Signs Temperature 98.0 F 07/30/25 17:26 Pulse Rate 90 07/30/25 17:26 Respiratory Rate 18 07/30/25 17:26 Blood Pressure 121/67 07/30/25 17:26 Pulse Oximetry 96 07/30/25 17:26 Oxygen Delivery Method Room Air 07/30/25 17:26 Temperature 98.3 F 08/01/25 15:50 Pulse Rate 96 H 08/01/25 15:50 Respiratory Rate 16 08/01/25 15:55 Blood Pressure 108/73 08/01/25 15:50 Pulse Oximetry 94 L 08/01/25 15:50 Oxygen Delivery Method Room Air 08/01/25 15:50 Medical Decision Making MDM Narrative Medical decision making narrative: The patient was now presenting to us after her caregiver which was her mother was admitted to the hospital, she is bedbound and wheelchair-bound and she does not have enough care at home General blood workup of CBC and chemistry was ordered but the patient will need admission because of lack of safe discharge and she is agreeable for placement as well The patient case discussed with and he agreed with above-mentioned plan clinical impression : inability to ambulate generalised weakness inadequate home care Lab Data Labs: Lab Results 07/30/25 Range/Units 17:50 WBC 6.7 (4.0-11.0) 10^3/uL RBC 4.46 (4.20-5.40) 10^6/uL Hgb 14.1 (12.0-16.0) g/dL Hct 41.8 (36.0-48.0) % MCV 93.7 (81.0-99.0) fL MCH 31.6 (26.7-34.0) pg MCHC 33.7 (29.9-35.2) g/dL RDW 14.2 (11.0-15.0) % Plt Count 290 (150-450) 10^3/uL MPV 10.0 (9.5-13.5) fL Neut % (Auto) 62.3 (43.0-75.0) % Lymph % (Auto) 26.6 (20.5-60.0) % [place] % (Auto) 9.8 (1.7-12.0) % Eos % (Auto) 0.9 (0.9-7.0) % Baso % (Auto) 0.2 (0.2-2.0) % Neut # (Auto) 4.2 (1.4-6.5) 10^3/uL Lymph # (Auto) 1.8 (1.2-3.8) 10^3/uL [place] # (Auto) 0.7 (0.3-0.8) 10^3/uL Eos # (Auto) 0.1 (0.0-0.7) 10^3/uL Baso # (Auto) 0.0 (0.0-0.1) 10^3/uL Abs Immat Gran (auto) 0.01 (0.00-0.03) 10^3/uL Imm/Tot Granulo (auto) 0.2 (0.0-0.5) % Sodium 139 (136-145) mmol/L Potassium 4.0 (3.5-5.1) mmol/L Chloride 101 (98-107) mmol/L Carbon Dioxide 31.1 (21.0-32.0) mmol/L Anion Gap 10.9 BUN 17.0 (7.0-18.0) mg/dL Creatinine 0.59 (0.55-1.02) mg/dL Est GFR ( Amer) >60 (>=60 mL/min/1.73m^2) Est GFR (Non-Af Amer) >60 (>=60 mL/min/1.73m^2) BUN/Creatinine Ratio 28.8 Glucose 87 (74-106) mg/dL Calcium 9.7 (8.5-10.1) mg/dL Total Bilirubin 0.6 (0.2-1.0) mg/dL AST 12 L (15-37) U/L ALT 12 L (14-59) U/L Alkaline Phosphatase 90 (46-116) U/L Total Protein 7.6 (6.4-8.2) g/dL Albumin 3.1 L (3.4-5.0) g/dL Globulin 4.5 g/dL Albumin/Globulin Ratio 0.7 Discharge Plan Discharge Chief Complaint: Recheck/Abnormal Lab/Rx Clinical Impression: Generalized muscle weakness, Unable to ambulate Patient Disposition: Admitted As Inpatient Time of Disposition Decision: 18:06 Discharge Date/Time: 07/30/25 18:12
[2025-07-30 18:09] LABS: Hematocrit 41.8 % (36.0-48.0); Hemoglobin 14.1 g/dL (12.0-16.0); Immature Granulocytes Abs Auto 0.01 10^3/uL (0.00-0.03); Immature Granulocytes Pct Auto 0.2 % (0.0-0.5); Lymphocytes Absolute Auto 1.8 10^3/uL (1.2-3.8); Mean Corpuscular HGB Conc 33.7 g/dL (29.9-35.2); Mean Corpuscular Hemoglobin 31.6 pg (26.7-34.0); Mean Corpuscular Volume 93.7 fL (81.0-99.0); Platelet Count 290 10^3/uL (150-450); Red Blood Count 4.46 10^6/uL (4.20-5.40); White Blood Count 6.7 10^3/uL (4.0-11.0)
[2025-07-30 18:24] LABS: Alanine Aminotransferase 12 U/L (14-59); Albumin Globulin Ratio 0.7; Albumin Level 3.1 g/dL (3.4-5.0); Alkaline Phosphatase 90 U/L (46-116); Anion Gap 10.9; Aspartate Amino Transferase 12 U/L (15-37); Blood Urea Nitrogen 17.0 mg/dL (7.0-18.0); Calcium 9.7 mg/dL (8.5-10.1); Carbon Dioxide 31.1 mmol/L (21.0-32.0); Chloride 101 mmol/L (98-107); Estimated GFR (African America >60 (>=60 mL/min/1.73m^2); Estimated GFR (Non-African Ame >60 (>=60 mL/min/1.73m^2); Globulin 4.5 g/dL; Glucose 87 mg/dL (74-106); Potassium 4.0 mmol/L (3.5-5.1); Sodium 139 mmol/L (136-145); Total Protein 7.6 g/dL (6.4-8.2)
[2025-07-30 18:43] VITALS: BP 114/65; PULSE 92; TEMP 36.9; O2SAT 95; BMI 38.1
[2025-07-30 18:44] VITALS: BP 114/65; PULSE 92; TEMP 36.9; O2SAT 95
--- NOTE | 2025-07-30 18:44 | PM.IMHP1 ---
Internal Medicine - H&P: HPI History of Present Illness Chief complaint: Generalized weakness, inadequate home care Narrative: This is a 64-year-old female with past medical history of traumatic brain injury 1976, multiple sclerosis, depression, history of hemorrhagic strokes before, morbid obesity, seizure, bilateral lower extremity paresis, bedbound and wheelchair dependent, anxiety, DVT, totally dependent, lives with her mom who takes care of her. Who presents today as she does not have anyone to take care of her at home. Interestingly there is a disorder record from the ED however the patient tells me when I saw her in the room that she does not know why she was here, states that someone called APS and the squad showed up to her house and took her to the hospital. She was watching TV with no nausea no vomiting no abdominal pain no SOB no chest pain no palpitations no diaphoresis no urinary or bowel symptoms. Labs in the ED were unremarkable. Vital signs were stable. Patient to be observed under hospitalist service for further assistance with placement possibly. Review of Systems ROS Status of ROS 10 or more systems reviewed and unremarkable except as noted in history and below [facility] Medical History (Updated 07/30/25 @ 18:55 by Scarlett Diehl MD) Multiple sclerosis ?G35 - Multiple sclerosis (ICD-10) Seizure disorder ?G40.909 - Epilepsy, unspecified, not intractable, without status epilepticus (ICD-10) Poor social situation ?Z60.9 - Problem related to social environment, unspecified (ICD-10) Contusion of knee ?S80.00XA - Contusion of unspecified knee, initial encounter (ICD-10) Ankle pain ?M25.579 - Pain in unspecified ankle and joints of unspecified foot (ICD-10) Fall ?W19.XXXA - Unspecified fall, initial encounter (ICD-10) Acute UTI ?N39.0 - Urinary tract infection, site not specified (ICD-10) Weakness of left side of body ?R53.1 - Weakness (ICD-10) Hemorrhagic stroke ?I61.9 - Nontraumatic intracerebral hemorrhage, unspecified (ICD-10) Recurrent severe major depressive disorder with anxiety ?F33.2 - Major depressive disorder, recurrent severe without psychotic features (ICD-10) ?F41.9 - Anxiety disorder, unspecified (ICD-10) UTI (urinary tract infection) ?N39.0 - Urinary tract infection, site not specified (ICD-10) Ambulatory dysfunction ?R26.2 - Difficulty in walking, not elsewhere classified (ICD-10) Fall ?W19.XXXA - Unspecified fall, initial encounter (ICD-10) Abrasion of face ?S00.81XA - Abrasion of other part of head, initial encounter (ICD-10) Fibula fracture ?S82.409A - Unspecified fracture of shaft of unspecified fibula, initial encounter for closed fracture (ICD-10) Lower extremity pain ?M79.606 - Pain in leg, unspecified (ICD-10) Back pain ?M54.9 - Dorsalgia, unspecified (ICD-10) Closed head injury ?S09.90XA - Unspecified injury of head, initial encounter (ICD-10) Contusion of face ?S00.83XA - Contusion of other part of head, initial encounter (ICD-10) Contusion of sacral region ?S30.0XXA - Contusion of lower back and pelvis, initial encounter (ICD-10) Fall ?W19.XXXA - Unspecified fall, initial encounter (ICD-10) H/O traumatic brain injury ?Z87.820 - Personal history of traumatic brain injury (ICD-10) Cat scratch fever ?A28.1 - Cat-scratch disease (ICD-10) Aneurysm ?I72.9 - Aneurysm of unspecified site (ICD-10) Arm fracture, left ?S42.302A - Unspecified fracture of shaft of humerus, left arm, initial encounter for closed fracture (ICD-10) Depression ?F32.A - Depression, unspecified (ICD-10) Anxiety ?F41.9 - Anxiety disorder, unspecified (ICD-10) DVT (deep venous thrombosis) ?I82.409 - Acute embolism and thrombosis of unspecified deep veins of unspecified lower extremity (ICD-10) Traumatic brain injury ?S06.9XAA - Unspecified intracranial injury with loss of consciousness status unknown, initial encounter (ICD-10) Surgical History Hx of tracheostomy ?Z98.890 - Other specified postprocedural states (ICD-10) Family History Grandfather Family history of CHF (congestive heart failure) Family history of cancer Aunt Family history of diabetes mellitus Family history of stroke Other Family history of COPD (chronic obstructive pulmonary disease) Social History Within the past year, how often did you have a drink containing alcohol: never Score interpretation: A score less than 3 is consistent with normal alcohol consumption. Smoking status: Never smoker Non-prescribed substance use: denies use Previous occupational history: disabled Highest level of school completed/degree received: some college, no degree Are you now , , , , never or living with a partner: never Little interest or pleasure in doing things: not at all Feeling down, depressed, or hopeless: not at all Feel stressed/tense/nervous/anxious/difficulty sleeping: not at all Do you think of yourself as: straight/heterosexual Gender Identity: female Meds Home Medications and Allergies Home Medications ?Medication ?Instructions ?Recorded ?Confirmed ?Type duloxetine 20 mg capsule,delayed 20 mg PO BID 11/15/23 07/30/25 History release duloxetine 60 mg capsule,delayed 60 mg PO BEDTIME 11/15/23 07/30/25 History release oxybutynin chloride 15 mg 15 mg PO DAILY 11/15/23 07/30/25 History tablet,extended release 24 hr divalproex 250 mg tablet,extended 250 mg PO QID 07/12/24 07/30/25 History release 24 hr tramadol 50 mg tablet 50 mg PO Q12H PRN pain 12/23/24 07/30/25 History alprazolam 0.5 mg tablet 0.5 mg PO TID PRN anxiety 7 days 12/31/24 07/30/25 Rx #21 tabs baclofen 10 mg tablet 10 mg PO TID 07/30/25 07/30/25 History levothyroxine 50 mcg tablet 50 mcg PO DAILY 07/30/25 07/30/25 History oxcarbazepine 600 mg tablet 600 mg PO .qhs 07/30/25 07/30/25 History pregabalin 150 mg capsule 150 mg PO BID 07/30/25 07/30/25 History Allergies Allergy/AdvReac Type Severity Reaction Status Date / Time latex Allergy Mild Hives Verified 12/23/24 16:43 Penicillins Allergy Mild Rash Verified 12/23/24 16:43 rofecoxib (From Vioxx) Allergy Mild Rash Verified 12/23/24 16:43 Exam Narrative Exam Narrative: General: Well-appearing and in no apparent distress, pleasant, frail, bedbound, not in acute distress stop Skin: Warm, dry, no pallor noted, No rash. Head: Normocephalic, atraumatic Neck: Supple, non-tender Cardiovascular: Regular Rate and Rhythm without murmur, gallop or rub. Respiratory: No accessory muscle use or respiratory distress. Lungs are clear to auscultation, no wheezing, rales or rhonchi Chest Wall: no tenderness Back: No midline thoracic or lumbar vertebral tenderness. No CVA tenderness Musculoskeletal: normal ROM, no calf or popliteal tenderness, no lower extremity edema/swelling GI: Abdomen is soft, non-distended. Normal bowel sounds. No masses appreciated. No tenderness to palpation. No rebound, guarding, or rigidity noted. Neurological: A&O x4. No cranial nerve dysfunction observed. Bilateral chronic lower extremity weakness Constitutional Vital Signs, click to edit/add: Last Vital Signs Temp 98.0 F 07/30/25 17:26 Pulse 90 07/30/25 17:26 Resp 18 07/30/25 17:26 BP 121/67 07/30/25 17:26 Pulse Ox 96 07/30/25 17:26 O2 Del Method Room Air 07/30/25 17:26 Internal Medicine - H&P: Reslt Labs Labs: Short CBC 07/30/25 Range/Units 17:50 WBC 6.7 (4.0-11.0) 10^3/uL Hgb 14.1 (12.0-16.0) g/dL Hct 41.8 (36.0-48.0) % Plt Count 290 (150-450) 10^3/uL BMP 07/30/25 17:50 Sodium 139 Potassium 4.0 Chloride 101 Carbon Dioxide 31.1 BUN 17.0 Creatinine 0.59 Glucose 87 Calcium 9.7 Liver Function 07/30/25 Range/Units 17:50 Total Bilirubin 0.6 (0.2-1.0) mg/dL AST 12 L (15-37) U/L ALT 12 L (14-59) U/L Alkaline Phosphatase 90 (46-116) U/L Albumin 3.1 L (3.4-5.0) g/dL Assessment and Plan Assessment and Plan (1) Unable to ambulate: (2) Generalized muscle weakness: (3) Seizure disorder: (4) Multiple sclerosis: (5) Recurrent severe major depressive disorder with anxiety: (6) Hemorrhagic stroke: (7) Frailty: (8) Debility: Plan Frailty and debility in the setting of multiple comorbidities including MS, bedbound/wheelchair-bound due to quadriplegia May need higher level of care -Observe patient to medical floor - PT/OT evaluation for possible placement - HSQ for DVT prophylaxis - Pantoprazole for DVT prophylaxis - DNR CCA without intubation, I discussed the goals of care with the patient at bedside. I will updated in the chart - I will reconcile the patient's medications once the list is updated by the nursing team - Discussed the plan with the patient in details. Answered all her questions
[2025-07-30] MEDS: PREGABALIN 75 MG CAPSULE 150 MG PO (20:33)
[2025-07-30 20:47] VITALS: PULSE 87; TEMP 37; O2SAT 95
[2025-07-30] MEDS: DIVALPROEX SODIUM 250 MG TAB.ER.24H PO (22:08)
[2025-07-30] MEDS: BACLOFEN 10 MG TABLET PO (22:08)
[2025-07-30 23:43] VITALS: BP 109/73; PULSE 91; TEMP 36.6; O2SAT 90
[2025-07-31 04:00] VITALS: BP 111/76; PULSE 82; TEMP 36.4; O2SAT 91
[2025-07-31] MEDS: DIVALPROEX SODIUM 250 MG TAB.ER.24H PO ×4 (05:47→21:40)
[2025-07-31] MEDS: BACLOFEN 10 MG TABLET PO ×3 (05:47→21:40)
[2025-07-31] MEDS: PANTOPRAZOLE SODIUM 40 MG TABLET.DR PO (05:47)
[2025-07-31 06:23] LABS: Hematocrit 41.8 % (36.0-48.0); Hemoglobin 14.2 g/dL (12.0-16.0); Immature Granulocytes Abs Auto 0.01 10^3/uL (0.00-0.03); Immature Granulocytes Pct Auto 0.1 % (0.0-0.5); Lymphocytes Absolute Auto 2.1 10^3/uL (1.2-3.8); Mean Corpuscular HGB Conc 34.0 g/dL (29.9-35.2); Mean Corpuscular Hemoglobin 32.0 pg (26.7-34.0); Mean Corpuscular Volume 94.1 fL (81.0-99.0); Platelet Count 282 10^3/uL (150-450); Red Blood Count 4.44 10^6/uL (4.20-5.40); White Blood Count 6.7 10^3/uL (4.0-11.0)
[2025-07-31 06:43] LABS: Alanine Aminotransferase 11 U/L (14-59); Albumin Globulin Ratio 0.7; Albumin Level 3.0 g/dL (3.4-5.0); Alkaline Phosphatase 89 U/L (46-116); Anion Gap 11.0; Aspartate Amino Transferase 11 U/L (15-37); Blood Urea Nitrogen 17.0 mg/dL (7.0-18.0); Calcium 9.7 mg/dL (8.5-10.1); Carbon Dioxide 31.9 mmol/L (21.0-32.0); Chloride 102 mmol/L (98-107); Estimated GFR (African America >60 (>=60 mL/min/1.73m^2); Estimated GFR (Non-African Ame >60 (>=60 mL/min/1.73m^2); Globulin 4.2 g/dL; Glucose 96 mg/dL (74-106); Potassium 3.9 mmol/L (3.5-5.1); Sodium 141 mmol/L (136-145); Total Protein 7.2 g/dL (6.4-8.2)
[2025-07-31 08:00] VITALS: BP 100/60; PULSE 84; TEMP 36.6; O2SAT 94
--- OUTSIDE RECORDS SUMMARY | 2025-07-31 08:01 | XMS_ITS | Clinical Summary ---
Author Organization [facility] Address [address] [place] [address] Care Team Providers Care Security Tester Name Role Phone Benton Eisenberg MD Unavailable [phone] Unallocated, [facility] Provider Primary Care Provi shagufta Allergies Active AllergyReactionsCriticalityNoted VioeSpffbozcMcowljcugoq23/15/2024 Usbgargyyz90/15/1506XkaywDhqzZhv63/21/2485Nsxiotgltxs01/15/2024Sulfa Antibiotics Tpkyhyi0403/07/2024Sulfamethoxazole-XskzpudejhlhNnrvdbh34/29/2024ofecoxib 01/23/2024 Medications MedicationSigDispense QuantityRefillsLast FilledStart DateEnd DateStatus [...] capsule Discontinued(Reorder) Active Problems ProblemNoted DateDiagnosed DateSensory qdqzbp6901/23/2024 Overview (01/23/2024): Patient reports history of multiple [...] signal abnormality. She was seen at the [facility] and does not have MS. She recently had a mechanical fall while trying to walk down her steps and carry her walker and evaluated at [facility]. I will request records for review. DDD (degenerative disc disease), uxjsvjfp15/15/2024 Overview (01/23/2024): MRI cervical spine 07/2019 revealed [...] post contrast enhancement. No cord compression. Occipital oaebvqkdr28/20/2018 Overview (01/23/2024): Paresthesias to the base of [...] bilaterally. Occipital block was ineffective. Medication monitoring nlejhzxki15/20/2018Lumbar /20/2018Lumbar lxwldzxdtblci38/20/2018 Overview (01/23/2024): She has failed gabapentin, Trileptal. [...] an increase in falls Disturbance of skin jkeomucrj18/04/2016Syndrome affecting cervical region 03/23/20168042Pnpnezxoc45/12/2016 Overview (01/23/2024): Patient reports difficulty swallowing, primarily [...] states she has not heard from them. Gqgdlsur99/15/1996Pubwucnz41/22/2013Radiculopathy, lumbar gknfhp8207/31/2013 Seizure pppdehno39/21/2013 Overview (01/23/2024): history of seizure disorder which is stable on Depakote. She previously followed with PCP for this.Her last seizure was 3+ years ago. 2 hour EEG 02/2020 was normal. Labs from 07/2022 depakote level: 48.4. Sxzqhcjl13/19/2013Head rsmtbe5703/28/2013Demyelinating disease of central nervous bvdjgl2903/28/2013 Overview (01/23/2024): Patient reports history of multiple sclerosis. MRI brain revealed white matter changes with no abnormal enhancement possibly due to small vessel disease. She needs updated imaging. Encounters DateTypeDepartmentCare OjkrItchiwshamq57/24/2025Telephone [facility] [address] [facility] [address] [place] [address] Ainsley Anderson, VARINDER 05/06/2025Telephone [facility] [address] [facility] [address] [place] [address] Ainsley Anderson NP from Last 3 Months Family History RelationNameStatusCommentsMotherAlive Social History Tobacco UseTypesPacks/DayYears UsedDateSmoking Tobacco: NeverSmokeless Tobacco: Never Tobacco Cessation:Counseling Given: Not Answered Alcohol UseStandard Drinks/WeekCommentsNever0 (1 standard drink = 0.6 oz pure alcohol)CommentsUnknownSex and Gender InformationValueDate RecordedSex Assigned at BirthNot on fileLegal EbxOgzxnl48/15/2023 7:14 PM EDTGender Identity Not on fileSexual OrientationNot on file Last Filed Vital Signs Vital SignReadingTime TakenCommentsBlood Moxefnvq891/9008 12:37 PM EDT Cugds052105/30/2024 12:37 PM EDTTemperature--Respiratory Kxyq7860 10:53 AM EDTOxygen Xnhrwawcec40%05/16/2024 10:53 AM EDTInhaled Oxygen Concentration-- Gyvtfw472 kg (252 lb)05/16/2024 10:53 AM VALUvrbem683.6 cm (5' 4 )05/16/2024 10:53 AM EDTBody Mass Index43.26005/16/2024 10:53 AM EDT Plan of Treatment Health MaintenanceDue DateLast DoneCommentsCT Ctnhxwzzyvcz1960Colonoscopy 1960Colorectal Cancer Qylulgidd1960FIT-DNA1960FIT1960 FOBT1960 8689Yffztyoysxoaw1960Pap Smear1981Cervical Cancer Sfgdztwye21/29/1990HPV/Vvxdgx9305/07/19906654Wvwdcxdca02/29/2000Medicare Annual Wellness (AWV)/05/2024Influenza Vaccine (#1)/01/2024, 05/25/2022, 06/05/2020, Additional history existsPneumococcal Vaccine: 65+ Years (2 of 2 - PCV), 04/13/[address] [place] [address] Care Teams Team MemberRelationshipSpecialtyStart DateEnd Date Unallocated, [facility], [address] [place] [address] PCP - GeneralFamily Nlvnkhom44/2/24 Benton Eisenberg MD Referring PhysicianNeurology12/26/23
--- OUTSIDE RECORDS SUMMARY | 2025-07-31 08:01 | XMS_ITS | Clinical Summary ---
Author Organization [facility] Address [address] [place] [address] Care Team Providers Care Cable Mock Up Assembler Name Role Phone Emanuel Summers MD Primary Care Provider [phone] Breanna Grubbs PA-C Unavailable Unavailable Allergies Active AllergyReactionsCriticalityNoted XlvuOwubpumpYyerfOxnw85/21/2020 Penicillin GRash,Hjsvkuf2611/30/20192274Gmfmno-Bgxv-JchujbndgnabhSL Upset11/30/2019 GI Bleed Medications MedicationSigDispense QuantityRefillsLast FilledStart [...] DateObesity, Class III, BMI >= 4011Left wrist ctmkgveq91/12/2020Pain in left wrist12/20/2019 Encounters DateTypeDepartmentCare LrobRihhcxzcbee61/29/2025 [place] [address] Provider, [facility] Medicare Coverage of Physical Examsfrom Last 3 Months Family History Medical HistoryRelationCommentsMVABrotherlupusMotherMultiple SclerosisNo Family HistoryRelationStatusCommentsBrotherDeceasedFatherAliveMotherAlive Social History Tobacco UseTypesPacks/DayYears UsedDateSmoking Tobacco: NeverSmokeless Tobacco: NeverAlcohol UseStandard Drinks/WeekCommentsYes0 (1 standard drink = 0.6 oz pure alcohol)once a year-1 or 2 drinksPHQ-2AnswerDate RecordedPHQ-2 plycx199 Area Deprivation IndexAnswerDate RecordedNational Score (1-100), lower number is lower moaz258511/07/2022State Score (1-10), lower number is lower riskNot on file 3Data from: https://www.neighborhoodatlas.medicine.[facility].edu/. Last address used for jhloa[address]piv[address]CommentsNoSex and Gender InformationValueDate RecordedSex Assigned at BirthNot on fileLegal Sex Djkkqv2011/08/2019 1:26 PM ESTGender IdentityNot on fileSexual OrientationNot on file Last Filed Vital Signs Vital SignReadingTime TakenCommentsBlood Egddgbnb532/8610/05/2021 1:00 PM EST Icemh947410/05/2021 1:00 PM XSMVefdcpayxvd75.7 ??C (96.3 ??F)12/14/2019 4:49 PM ESTRespiratory Ixyq210512/14/2019 4:49 PM ESTOxygen Wyqdzcuiba30%12/14/2019 4:49 PM ESTInhaled Oxygen Concentration--Vopauz532.8 kg (273 lb)10/05/2021 1:00 PM GQLTebttw697.4 cm (5' 5.5 )10/05/2021 1:00 PM ESTBody Mass Index44.7410/05/2021 1:00 PM EST Plan of Treatment Health MaintenanceDue DateLast DoneCommentsAnxiety Vukhznqem16/29/1978Depression Xpgcfnnxj84/29/1978HIV Ysmouflzc40/29/1978Hepatitis C Auieaoeko59/29/1978 Mammogram Lqqdooqyk54/29/2000CT Glmjbhyhtnlx29/29/2005Cologuard (FIT-DNA) 05/07/20050289Zvwgtbejslm45/29/2005Colorectal Cancer Gzhlurdof18/29/2005Fecal Occult Blood2005Lipid Yqyxrijaw49/29/9220Cyurjmdixoupb14/29/2005Shingrix Vaccine (1 of 2)2010Pneumococcal Vaccine: 50+ (2 of 2 - PCV) Diabetes Vxczbgdny49/27/15400712/06/2020, 10/05/2021, 12/11/2019Advance Directive Jlzlbodlze41/29/2025Bone Density Qqujxruon07/29/2025Covid-19 Vaccine (3 - 2025- 26 season), 02/04/2021Influenza Vaccine (#1)2025 06/05/2020, 06/01/2019, 06/06/2018, Additional history existsDTaP,Tdap,Td Vaccine (2 - Td or Tdap)RSV Vaccine (1 - 1-dose 75+ series) 2035 Medical Devices ImplantedTypeAreaManufacturerDevice IdentifierShelf Expiration DateModel / Serial / LotPlate Lcp Standard Stainless Steel [id number] Bone 6x3 Hole 2 Column Variable - [id number] Implanted:12/14/[address] [facility] (Quantity not on file)PlateLeft: Bone - WristSYNTHES DoubleVerify SYNTHES [id number] / / Screw Lcp 2.4mm T8 Stainless Steel 14mm Bone Variable Angle Lock Self Tap - [id number] Implanted:12/14/[address] [facility] (Quantity not on file)ScrewLeft: Bone - WristSYNTHES EULTDI05.210.114 / / Screw Lcp 2.4mm T8 Stainless Steel 18mm Bone Variable Angle Lock Self Tap - [id number] Implanted:12/14/[address] [facility] (Quantity not on file)ScrewLeft: Bone - WristSYNTHES DoubleVerify SYNTHES USA02.210.118 / / Screw Lcp 2.4mm T8 Stainless Steel 20mm Bone Variable Angle Lock Self Tap - [id number] Implanted:12/14/[address] [facility] (Quantity not on file)ScrewLeft: Bone - WristSYNTHES DoubleVerify SYNTHES USA02.210.120 / / Screw Lcp 2.7mm T8 Stainless Steel 14mm Bone Stardrive Self Tap Modular - [id number] Implanted:12/14/[address] [facility] (Quantity not on file)ScrewLeft: Bone - WristSYNTHES DoubleVerify SYNTHES [id number] / / Screw Lcp 2.7mm T8 Stainless Steel 16mm Bone Stardrive Self Tap Modular - [id number] Implanted:12/14/[address] [facility] (Quantity not on file)ScrewLeft: Bone - WristSYNTHES DoubleVerify SYNTHES WFR483.876 / / Procedures Procedure NamePriorityDate/TimeAssociated DiagnosisCommentsCOMPREHENSIVE METABOLIC NVRRWIpuhwqx88/27/2021 4:26 PM EST Neuropathic pain from Last 3 Months or Most Recently Relevant to Health Maintenance Results * (ABNORMAL) COMP METABOLIC PANEL (10/05/2021 4:26 PM EST)ComponentValueRef RangeTest MethodAnalysis TimePerformed AtPathologist SignatureProtein, Total 6.96.3 - 8.0 g/dL10/05/2021 7:32 PM [facility] LaboratoriesAlbumin4.3 3.9 - 4.9 g/dL10/05/2021 7:32 PM [facility] LaboratoriesCalcium9.58.5 - 10.2 mg/dL10/05/2021 7:32 PM [facility] LaboratoriesBilirubin, Total0.30.2 - 1.3 mg/dL10/05/2021 7:32 PM [facility] Alkaline Tdhsdorejac6351 - 123 U/L112/06/2020 7:32 PM [facility] XeessztvhdleLMK2785 - 35 U/L112/06/2020 7:32 PM [facility] NwafuczsyjciCiqbzhi118(H)74 - 99 mg/dL10/05/2021 7:32 PM [facility] LaboratoriesComment: The [place] Diabetes Association (ADA) provides guidance for cutoff [...] Standards of Medical Care in Diabetes 2016, [place] Diabetes Association. Diabetes Care. 2016.39(Suppl 1). ZLD491 - 21 mg/dL10/05/2021 7:32 PM [facility] LaboratoriesCreatinine 0.740.58 - 0.96 mg/dL10/05/2021 7:32 PM [facility] LaboratoriesSodium 825414 - 144 mmol/L112/06/2020 7:32 PM [facility] LaboratoriesPotassium 4.53.7 - 5.1 mmol/L112/06/2020 7:32 PM [facility] LaboratoriesChloride 52188 - 105 mmol/L112/06/2020 7:32 PM [facility] NkwlagqgkrxzNF44431 - 30 mmol/L112/06/2020 7:32 PM [facility] LaboratoriesAnion Gvi519 - 18 mmol/L112/06/2020 7:32 PM [facility] KvxngrkzxdcpXMX484 - 38 U/L 10/05/2021 7:32 PM [facility] LaboratorieseGFR->60 10/05/2021 7:32 PM [facility] LaboratorieseGFR-All Other Races>60. 10/05/2021 7:32 PM [facility] LaboratoriesComment: eGFR (Estimated GFR) Units of [...] Method / Volume Collection TimeReceived TimeBloodOTHER / Olifnvd9610/05/2021 4:26 PM EST10/05/2021 4:28 PM EST Narrative Authorizing ProviderResult TypeResult StatusJustin R Saw MDLABORATORY Final ResultPerforming OrganizationAddressCity/State/ZIP CodePhone Number [facility] [address] [place] [address] [facility] [address] [place] [address] from Last 3 Months or Most Recently Relevant to Health Maintenance Insurance Advance Directives TypeDate RecordedPatient RepresentativeExplanationAdvance Directive(s)12/14/2019 7:43 AMAdvance Directive(s)12/13/2019 2:10 PM Care Teams Team MemberRelationshipSpecialtyStart DateEnd Date Emanuel Summers MD [address] [place] [address] PCP - GeneralFamily Medicine11/08/19 Breanna Grubbs PA-C [address] [place] [address] Referring ByalKwghcqoom53/6/21
--- OUTSIDE RECORDS SUMMARY | 2025-07-31 08:02 | XMS_ITS | Clinical Summary ---
Author Organization [employer] [facility] Address [facility] [place] [address] Care Team Providers Care Machine Set Up Operator Name Role Phone Pcp, Not In System Primary Care Provider Unavail able Allergies Active AllergyReactionsCriticalityNoted YsdnDaalrmbpGchtx48/27/2024enicillins 09/05/20242928Gnaancpeo92/27/2024 Medications MedicationSigDispense QuantityRefillsLast FilledStart DateEnd DateStatus fluticasone [...] Tobacco UseTypesPacks/DayYears UsedDateSmoking Tobacco: Never AssessedChildcare AnswerDate AzwszkjfEmfvnuspiXkhitzb66/12/2019EmploymentAnswerDate Recorded TobsmjetovQyykziy38/12/2019Hunger ScreeningAnswerDate RecordedWithin the past 12 months we worried whether our food would run out before we got money to buy more.Never True09/05/2024Within the past 12 months the food we bought just didn't last and we didn't have money to get more.Never True09/05/2024 CommentsNoSex and Gender InformationValueDate RecordedSex Assigned at BirthNot on fileLegal QwsVshvsg23/06/2015 11:29 AM EDTGender IdentityNot on fileSexual OrientationNot on file Last Filed Vital Signs Vital SignReadingTime TakenCommentsBlood Osakvfdx805/5909/05/2024 2:11 PM EST Prwqk452609/05/2024 12:52 PM ESTTemperature--Respiratory Axqu769311/05/2023 12:52 PM ESTOxygen Jwydjercgy83%09/05/2024 1:26 PM ESTInhaled Oxygen Concentration-- Ogzlhh130.9 kg (240 lb)09/05/2024 12:52 PM ULSFxwndf600.6 cm (5' 4 )09/05/2024 12:52 PM ESTBody Mass Index41. 12:52 PM EST Plan of Treatment Health MaintenanceDue DateLast DoneCommentsDepression Oaxbyqusw64/29/1972Tobacco Emliblqra82/29/1972Adult BMI Follow Up Plan1978Zoster (Shingles) Vaccine (1 of 2)2010Fall Risk Wkkqwperm29/29/2025COVID-19 Vaccine ( season)/, 12/24/2021, 03/06/2021, Additional history exists Influenza Vqtwscl63/01/2024, 05/25/2022, 06/05/2020, Additional history existsAdult BMI Bmhkkkhpz99/4DTaP,Tdap and Td Vaccines (2 - Td or Tdap) Medical Devices Not on file Insurance Care Teams Team MemberRelationshipSpecialtyStart DateEnd Date Pcp, [place] [address] [facility] Vrcbylin24/27/24
--- OUTSIDE RECORDS SUMMARY | 2025-07-31 08:02 | XMS_ITS | Patient Health Record ---
Author Organization [facility] Address [address] [place] [address] Care Team Providers Care Boiler Or Engine Operator Name Role Phone Yandy Esquivel MD Primary Care Provider Benton Goodwin Unavailable [phone] Benton Moreno Unavailable [phone] Hermila Haas Unavailable Allergies Allergen (clinical drug [...] alcohol in the p ast year? No Jbwsss2VrcglubwjnecfyXuxcliubBumqpmp Control (Standard) Question Answer Notes Tobacco use: Nonsmoker Problems Problem Type SNOMED Code ICD Code Onset Dates Problem Status W/U Status Risk Notes Problem Sprain of wrist (61473603) Sprain of wris t NOS (842.00) Activeconfirmed Vital Signs Height 5 ft 5 in in 08/27/2024 Puawhi019 lbs11/9396EJD06.9311 Encounters Encounter Location Date Provider Diagnosis [facility] [address] [place] [address] [place] [address] 08/27/2024 Hermila Haas Other closed fracture of distal end of right fibula, initial encounter S82.831A Assessments Encounter Date Diagnosis (ICD Code) Assessment Notes Treatment Notes Treatment Clinical Notes Section Notes 08/27/2024 Other closed fractur e of distal end of right fibula, initial encounter (ICD-10 - S82.831A) 08/27/2024OtherPatient's pain has improved and given she feels [...] Order Date SCC- ANKLE 3 VIEW RIGHT [id number] 07/30/2024 Insurance Providers Payer Name Payer Address Payer Phone Subscriber Number Group Number Insured Name Patient Relationship to Insured Coverage Start Date Coverage End Date Medicare [facility] [address] [place] [address] [id number] Moody WATSON - patient [place] the [place] [id number], JONETTESelf - patient is the insured Medical [...]
--- OUTSIDE RECORDS SUMMARY | 2025-07-31 08:02 | XMS_ITS | Patient Health Record ---
Author Organization [facility] Address [address] [place] [address] Care Team Providers Care Pre Sales Technical Consultant Name Role Phone None, Unknown or Primary Care Provider Unavailab le Reason For Referral No Information Problems Problem Type SNOMED Code ICD Code Onset Dates Problem Status W/U Status Risk Notes Problem Anemia (153798914) Anemia, unspecified (D 64.9) ActiveconfirmedProblemGeneralized anxiety disorder (67019280)Generalized anxiety disorder (F41.1)ActiveconfirmedProblemMultiple sclerosis (78632418)Multiple sclerosis (G35)ActiveconfirmedProblemMononeuropathy of lower limb (843556099) Unspecified mononeuropathy of left lower limb (G57.92)ActiveconfirmedProblem Constipation (24386530)Constipation, unspecified (K59.00)ActiveconfirmedProblem Overactive bladder (079549151)Overactive bladder (N32.81)ActiveconfirmedProblem Seizure disorder (389916595)Seizure disorder (G40.909)Activeconfirmed Plan Of Treatment No Information Insurance Providers Payer Name Payer Address Payer Phone Subscriber Number Group Number Insured Name Patient Relationship to Insured Coverage Start Date Coverage End Date [employer] BRUCE STRATTON [address] [place] [address] [id number] Vijay Diaz - patient is the [id number] 2023
[2025-07-31] MEDS: DULOXETINE HCL 20 MG CAPSULE.DR PO ×2 (09:13→15:38)
[2025-07-31] MEDS: ALPRAZOLAM 0.5 MG TABLET PO (09:13)
[2025-07-31] MEDS: PREGABALIN 75 MG CAPSULE 150 MG PO ×2 (09:13→21:40)
[2025-07-31] MEDS: OXYBUTYNIN CHLORIDE 5 MG TAB XL 15 MG PO (09:13)
[2025-07-31] MEDS: HEPARIN SODIUM (PORCINE) 5,000 UNIT/ML VIAL 5000 UNIT SUBQ ×2 (09:13→21:40)
--- NOTE | 2025-07-31 09:45 | CM.NOTE ---
Rounds made with Dr. Diehl, discussed with pt reason for admission and plan of care. PT and OT will evaluate pt for discharge planning.
--- NOTE | 2025-07-31 09:49 | SWNOTE1 ---
Pt's mother is here at hospital as well. Pt will likely need placed for rehab and for safety due to her mother not being able to care for her. CELSO called Aleja at [facility] and she is aware of the situation. She did inform SW that pt does have [employer] Medicaid for pt and it is active as secondary. SW to work on placement and talk to pt and her mother.
--- NOTE | 2025-07-31 11:05 | SWNOTE1 ---
CELSO stopped in to see pt and let her know that SW spoke to her mother about discharge planning. CELSO advised that it is recommended that pt and her mother go to skilled facility for rehab together for a short time to get stronger. SW let her know after therapy it would be beneficial for her and her mother to stay at a facility either termination clerk or assisted living so they can stay together and get the care they need. Alfonso is in agreement as long as her mother is and as long as they can stay together. CELSO asked if she was familiar with any facilities. She does not want [facility] or [facility]. Pt would like to try [facility] as they know a neighbor that is there. SW to let her pt's mother know.
[2025-07-31 11:25] VITALS: BP 119/77; PULSE 100; TEMP 36.6; O2SAT 97
--- NOTE | 2025-07-31 11:28 | SWNOTE1 ---
SW did hear back from Yoon at [facility] and they do not have any beds available. SW to speak with pt and her mother.
--- NOTE | 2025-07-31 12:51 | SWNOTE1 ---
SW went down to speak with pt in regards to [facility] not having any openings. Shakir and his were along as well. Pt's daughter is agreeable to [facility] as she knows someone that works there as well. Daughter again voiced she will go anywhere with her mother. Referral sent to [facility]. Referral included face sheet, ED note, H&P, provider notes, case management report, nursing notes, diagnostic imaging, med list, and PT/OT notes.
--- NOTE | 2025-07-31 14:08 | PM.PN ---
Progress Note: Subjective Subjective Interval history: Patient seen and examined at bedside. She is sitting up in chair very pleasant and cooperative. No events overnight. Labs were reviewed and they were unremarkable Exam Narrative Exam Narrative: General: Well-appearing and in no apparent distress, pleasant, frail, bedbound, not in acute distress stop Skin: Warm, dry, no pallor noted, No rash. Head: Normocephalic, atraumatic Neck: Supple, non-tender Cardiovascular: Regular Rate and Rhythm without murmur, gallop or rub. Respiratory: No accessory muscle use or respiratory distress. Lungs are clear to auscultation, no wheezing, rales or rhonchi Chest Wall: no tenderness Back: No midline thoracic or lumbar vertebral tenderness. No CVA tenderness Musculoskeletal: normal ROM, no calf or popliteal tenderness, no lower extremity edema/swelling GI: Abdomen is soft, non-distended. Normal bowel sounds. No masses appreciated. No tenderness to palpation. No rebound, guarding, or rigidity noted. Neurological: A&O x4. No cranial nerve dysfunction observed. Bilateral chronic lower extremity weakness Constitutional Vital Signs, click to edit/add: Last Vital Signs Temp 97.8 F 07/31/25 11:25 Pulse 100 H 07/31/25 11:25 Resp 16 07/31/25 11:25 BP 119/77 07/31/25 11:25 Pulse Ox 97 07/31/25 11:25 O2 Del Method Room Air 07/31/25 11:25 Progress Note: Objective Labs Labs: Short CBC 07/30/25 07/31/25 Range/Units 17:50 05:52 WBC 6.7 6.7 (4.0-11.0) 10^3/uL Hgb 14.1 14.2 (12.0-16.0) g/dL Hct 41.8 41.8 (36.0-48.0) % Plt Count 290 282 (150-450) 10^3/uL BMP 07/30/25 07/31/25 17:50 05:52 Sodium 139 141 Potassium 4.0 3.9 Chloride 101 102 Carbon Dioxide 31.1 31.9 BUN 17.0 17.0 Creatinine 0.59 0.57 Glucose 87 96 Calcium 9.7 9.7 Liver Function 07/30/25 07/31/25 Range/Units 17:50 05:52 Total Bilirubin 0.6 0.6 (0.2-1.0) mg/dL AST 12 L 11 L (15-37) U/L ALT 12 L 11 L (14-59) U/L Alkaline Phosphatase 90 89 (46-116) U/L Albumin 3.1 L 3.0 L (3.4-5.0) g/dL Progress Note: A&P Assessment and Plan (1) Unable to ambulate: (2) Generalized muscle weakness: (3) Seizure disorder: (4) Multiple sclerosis: (5) Recurrent severe major depressive disorder with anxiety: (6) Hemorrhagic stroke: (7) Frailty: (8) Debility: Plan Frailty and debility in the setting of multiple comorbidities including MS, bedbound/wheelchair-bound due to quadriplegia May need higher level of care -Observe patient to medical floor - PT/OT evaluation for possible placement - HSQ for DVT prophylaxis - Pantoprazole for DVT prophylaxis - DNR [facility] without intubation, I discussed the goals of care with the patient at bedside. I will updated in the chart - I will reconcile the patient's medications once the list is updated by the nursing team - Discussed the plan with the patient in details. Answered all her questions 07/31/2025 patient and her mom are going to senior living. The issue will be a pre-CERT. She is medically for discharge once pre-CERT comes
--- NOTE | 2025-07-31 14:49 | SWNOTE1 ---
SW reviewed Medicare Outpatient Observation Notice with pt's mother. She had no further questions at this time and signed the AGUILERA form. Original placed in pt's room and copy placed on chart.
--- NOTE | 2025-07-31 14:51 | SWNOTE1 ---
CELSO received a call from Renae at [facility] and they can accept clinically but they have no beds and have concerns about financial piece. She stated if pt and mother are here Tuesday or Tuesday, they can determine if they have any open beds. CELSO advised they would be ready for discharge so likely will be looking for placement elsewhere.
--- NOTE | 2025-07-31 15:08 | SWNOTE1 ---
SW updated pt in regards to conversation with her mother. Pt is in agreement to go anywhere as long as she is with her mother. She did also mention facilities in [place], SW advised that SW will check and let pt know that her mother is also alright with [facility] at this time as well. Pt in agreement. CELSO did reach out to Nan at [facility], waiting to hear back. CELSO also called [facility] [place] and they do not have Medicaid beds, but there sister facility in [place] does take Medicaid and has openings. She will have admissions person reach out.
--- NOTE | 2025-07-31 15:19 | SWNOTE1 ---
Referral sent to [facility]. Referral included face sheet, ED note, H&P, provider notes, case management report, nursing notes, diagnostic imaging, med list, and PT/OT notes and DNR order.
--- NOTE | 2025-07-31 15:20 | SWNOTE1 ---
Referral sent to Nan at [facility]. Referral included face sheet, ED note, H&P, provider notes, case management report, nursing notes, diagnostic imaging, med list, and PT/OT notes.
--- NOTE | 2025-07-31 15:25 | SWNOTE1 ---
SW called [facility] in [place] and admissions is not in, but SW left a message to have them return call.
[2025-07-31] MEDS: TRAMADOL HCL 50 MG TABLET PO (15:37)
[2025-07-31 15:39] VITALS: BP 119/77; PULSE 98; TEMP 36.6; O2SAT 97
[2025-07-31 20:38] VITALS: BP 118/73; PULSE 101; TEMP 36.8; O2SAT 93
[2025-07-31 23:37] VITALS: BP 101/66; PULSE 98; TEMP 36.6; O2SAT 93
[2025-08-01 03:53] VITALS: BP 120/81; PULSE 106; TEMP 37.3; O2SAT 91
[2025-08-01] MEDS: BACLOFEN 10 MG TABLET PO ×2 (05:14→13:22)
[2025-08-01] MEDS: DIVALPROEX SODIUM 250 MG TAB.ER.24H PO ×2 (05:15→11:30)
[2025-08-01] MEDS: PANTOPRAZOLE SODIUM 40 MG TABLET.DR PO (05:33)
[2025-08-01 07:31] VITALS: BP 127/81; PULSE 100; TEMP 36.4; O2SAT 94
[2025-08-01 07:37] VITALS: PULSE 100
[2025-08-01] MEDS: HEPARIN SODIUM (PORCINE) 5,000 UNIT/ML VIAL 5000 UNIT SUBQ (08:41)
[2025-08-01] MEDS: DULOXETINE HCL 20 MG CAPSULE.DR PO ×2 (08:41→13:22)
[2025-08-01] MEDS: PREGABALIN 75 MG CAPSULE 150 MG PO (08:41)
[2025-08-01] MEDS: TRAMADOL HCL 50 MG TABLET PO (08:41)
[2025-08-01] MEDS: OXYBUTYNIN CHLORIDE 5 MG TAB XL 15 MG PO (08:41)
--- NOTE | 2025-08-01 09:24 | SWNOTE1 ---
CELSO received a message from Nan at [facility] and they are clinically able to accept, but have to work on re-arranging rooms and need to know if pt and her mother are medically stable. CELSO did advise Nan that pt and pt's mother are medically stable. CELSO also advised Nan that pt is likely at her baseline for therapy and likely will not being seeing her any more. CELSO did ask if they will take her under Medicaid, waiting to hear back.
--- NOTE | 2025-08-01 10:59 | SWNOTE1 ---
CELSO spoke to Nan at [facility] again and she voiced they are working on bed situation. CELSO did advise that [facility] is now working on bed situation as well. CELSO has not heard back from Gloria at [facility].
--- NOTE | 2025-08-01 11:36 | P.DS_ITS ---
DS: Providers Provider Date of admission: 07/30/25 18:12 Primary care physician: INDER ROBERSON Consults: 07/30/25 17:40 Occupational Therapy Eval and Treat Routine Reason for consultation: weakness Physical Therapy Eval and Treat Routine Reason for consultation: weakness Anticipated date of discharge: 08/01/25 DS: Diagnosis Discharge Diagnosis (1) Unable to ambulate: (2) Generalized muscle weakness: (3) Seizure disorder: (4) Multiple sclerosis: (5) Recurrent severe major depressive disorder with anxiety: (6) Hemorrhagic stroke: (7) Frailty: (8) Debility: DS: Summary Hospital Course Hospital Course: This is a 64-year-old female with past medical history of traumatic brain injury 1976, multiple sclerosis, depression, history of hemorrhagic strokes before, morbid obesity, seizure, bilateral lower extremity paresis, bedbound and wheelchair dependent, anxiety, DVT, totally dependent, lives with her mom who takes care of her. Who presents today as she does not have anyone to take care of her at home. Interestingly there is a disorder record from the ED however the patient tells me when I saw her in the room that she does not know why she was here, states that someone called APS and the squad showed up to her house and took her to the hospital. She was watching TV with no nausea no vomiting no abdominal pain no SOB no chest pain no palpitations no diaphoresis no urinary or bowel symptoms. Labs in the ED were unremarkable. Vital signs were stable. Patient to be observed under hospitalist service for further assistance with placement possibly. Frailty and debility in the setting of multiple comorbidities including MS, bedbound/wheelchair-bound due to quadriplegia May need higher level of care -Observe patient to medical floor - PT/OT evaluation for possible placement - HSQ for DVT prophylaxis - Pantoprazole for DVT prophylaxis - DNR CCA without intubation, I discussed the goals of care with the patient at bedside. I will updated in the chart - I will reconcile the patient's medications once the list is updated by the nursing team - Discussed the plan with the patient in details. Answered all her questions 07/31/2025 patient and her mom are going to group home. The issue will be a pre-CERT. She is medically for discharge once pre-CERT comes 08/01/2025 pre-CERT came through at SNF, but will be available later in the afternoon hopefully patient be discharged later Status at Discharge Overall status at discharge: patient is back to baseline Time Spent with Patient Time attestation: Total time spent providing and/or coordinating discharge services: Time spent: greater than 30 minutes Exam Narrative Exam Narrative: General: Well-appearing and in no apparent distress, pleasant, frail, bedbound, not in acute distress stop Skin: Warm, dry, no pallor noted, No rash. Head: Normocephalic, atraumatic Neck: Supple, non-tender Cardiovascular: Regular Rate and Rhythm without murmur, gallop or rub. Respiratory: No accessory muscle use or respiratory distress. Lungs are clear to auscultation, no wheezing, rales or rhonchi Chest Wall: no tenderness Back: No midline thoracic or lumbar vertebral tenderness. No CVA tenderness Musculoskeletal: normal ROM, no calf or popliteal tenderness, no lower extremity edema/swelling GI: Abdomen is soft, non-distended. Normal bowel sounds. No masses appreciated. No tenderness to palpation. No rebound, guarding, or rigidity noted. Neurological: A&O x4. No cranial nerve dysfunction observed. Bilateral chronic lower extremity weakness Constitutional Vital Signs, click to edit/add: Last Vital Signs Temp 97.5 F L 08/01/25 07:31 Pulse 100 H 08/01/25 07:37 Resp 14 08/01/25 07:37 BP 127/81 08/01/25 07:31 Pulse Ox 94 L 08/01/25 07:31 O2 Del Method Room Air 08/01/25 07:31 Discharge Plan Discharge Disposition: er SNF Discharge Medications: Continued duloxetine 20 mg capsule,delayed release(DR/EC) 20 mg PO BID duloxetine 60 mg capsule,delayed release(DR/EC) 60 mg PO BEDTIME oxybutynin chloride 15 mg tablet extended release 24hr 15 mg PO DAILY divalproex 250 mg tablet extended release 24 hr 250 mg PO QID tramadol 50 mg tablet 50 mg PO Q12H PRN (Reason: pain) alprazolam 0.5 mg tablet 0.5 mg PO TID PRN (Reason: anxiety) 7 Days Qty: 21 0RF baclofen 10 mg tablet 10 mg PO TID levothyroxine 50 mcg tablet 50 mcg PO DAILY oxcarbazepine 600 mg tablet 600 mg PO .qhs pregabalin 150 mg capsule 150 mg PO BID Print Language: Pakistani Forms: Portal Instructions
[2025-08-01 11:41] VITALS: BP 118/72; PULSE 100; TEMP 36.6; O2SAT 94
--- NOTE | 2025-08-01 11:51 | CM.NOTE ---
Rounds made with Dr. Diehl. CELSO sent referral to [facility] yesterday. Possible discharge today or tomorrow pending bed availability.
--- NOTE | 2025-08-01 12:05 | SWNOTE1 ---
SW received stopped in and updated patient. SW advised that SW is waiting to hear back from [facility], and [facility]. SW did advise that SW is aware that initially her mother did not want to go to [facility], but she is alright with it now as long as pt and her mother get to stay together. Pt is in agreement as well. Pt's mother did call pt while SW was in room. They did agree that [facility] is there [facility] choice. SW will reach out to [facility] again.
--- NOTE | 2025-08-01 12:24 | SWNOTE1 ---
SW did receive a message from Renae at [facility] and the administration stated they can not take pt and daughter until beds open and they are unsure of when this will be.
--- NOTE | 2025-08-01 12:54 | SWNOTE1 ---
Nan at [facility] messaged that she is still waiting on administration and DON to determine room situation. SW did also reach out to [facility] to see if they have any openings. Eden at [facility] did reply and voiced they will review and should have beds open.
--- NOTE | 2025-08-01 14:37 | SWNOTE1 ---
Pt's sister Cole arrived and stopped in to see pt. CELSO updated pt and sister about [facility]. They are in agreement if they have openings. CELSO did receive an email back from Eden at [facility] and the business applications manager and DON has accepted. They will let me know if they have a bed available today.
--- NOTE | 2025-08-01 15:29 | SWNOTE1 ---
CELSO recevied a message back from [facility] and they are able to accept today and pt's discharge orders are in. CELSO updated the physician and pt's nurse. CELSO let pt's mother know and pt. CELSO to call sister. CELSO sent dc med rec to [facility]. CELSO completed PAS[facility] online. CELSO set up [facility] for 16:20. CELSO notified [facility], pt, pt's sister, pt's mother, and nurse of time. CELSO took packet to the floor.
[2025-08-01 15:50] VITALS: BP 108/73; PULSE 96; TEMP 36.8; O2SAT 94
--- NOTE | 2025-08-01 16:24 | SWNOTE1 ---
CELSO called Aleja at [facility] and updated her that pt is going to [facility] long term acute care registered nurse under her Medicaid today.
== END 2025-08-01 17:02 ==
LOC: ER 18:06 → MS 07-31 07:58
PROVIDERS: Admitting Provider Student in an Organized Health Care Education/Training Program; Emergency Provider Emergency Medicine; PCP Nurse Practitioner; Visit Provider Student in an Organized Health Care Education/Training Program
DX: M62.81 Muscle weakness (generalized) (principal); G40.909 Epilepsy, unspecified, not intractable, without status epilepticus; Z87.820 Personal history of traumatic brain injury; R54 Age-related physical debility; Z99.3 Dependence on wheelchair; Z66 Do not resuscitate; G82.50 Quadriplegia, unspecified; F32.A Depression, unspecified; R41.9 Unspecified symptoms and signs involving cognitive functions and awareness; Z86.718 Personal history of other venous thrombosis and embolism; E66.01 Morbid (severe) obesity due to excess calories; Z74.01 Bed confinement status; Z68.38 Body mass index [BMI] 38.0-38.9, adult
CPT/HCPCS: 36415; 80053; 85025; 96372; 97162; 97165; 97530; 99285; G0378; J1644